=== PATIENT | female | born 1950 | race African-American/Black ===

== ENCOUNTER 2017-07-11 09:53 | Day surgery (SDC) | payer MEDICARE, OTHER ==
[~2017-07-11 09:53] MED LIST: KETOROLAC TROMETHAMINE 0.45% 4 DROP/0.4 ML DROPERETTE OS PRN
[2017-07-11] MEDS: TETRACAINE HCL 0.5% OPH SOLN 0.6 ML DROPERETTE OS PRN ×3 (10:12→10:37)
[2017-07-11] MEDS: CYCLOPENTOLATE 0.2%/PHENYLEPHRINE 1% OPH SOLN 2 ML OS PRN ×3 (10:12→10:32)
[2017-07-11] MEDS: TROPICAMIDE 1% OPH SOLN 3 ML OS PRN ×3 (10:13→10:32)
[2017-07-11] MEDS: BESIFLOXACIN HCL 0.6% OPH SUSP 5 ML BOTTLE OS PRN ×4 (10:13→10:53)
[2017-07-11] MEDS ORDERED: MIDAZOLAM 2 MG/2 ML INJ ONE ×2 (10:19)
[2017-07-11] MEDS ORDERED: FENTANYL CITRATE INJ/PF 100 MCG/2 ML AMPUL ONE (10:20)
[2017-07-11] MEDS: EPINEPHRINE INJ/PF 1 MG/1 ML AMPULE ONE ×2 (10:42)
[2017-07-11] MEDS: LIDOCAINE 1% INJ-PF (10 MG/ML) 30 ML SDV ONE ×2 (10:43)
[2017-07-11] MEDS: CHONDR SU A NA/HYALUR INTRAOC KIT (SURGICARE) ONE ×2 (10:45)
[2017-07-11] MEDS: TOBRAMYCIN SULFATE/DEXAMETH OPH OINTMENT 3.5 GM ONE ×2 (10:53)
== END 2017-07-11 11:34 | disposition home or self-care (01) ==
LOC: SC 09:53
PROVIDERS: ATTEND Ophthalmology
PROC: 08RK3JZ Replacement of Left Lens with Synthetic Substitute, Percutaneous Approach (ICD-10-PCS; principal; 2017-07-11 10:30)
DX: H25.12 Age-related nuclear cataract, left eye (principal); Z98.41 Cataract extraction status, right eye; I10 Essential (primary) hypertension; K21.9 Gastro-esophageal reflux disease without esophagitis; M19.90 Unspecified osteoarthritis, unspecified site; Z79.899 Other long term (current) drug therapy; Z79.1 Long term (current) use of non-steroidal anti-inflammatories (NSAID); Z79.82 Long term (current) use of aspirin
CPT/HCPCS: 66984; V2630; J2250; J3490 ×3; A9270; J0171; J3010; 142

== ENCOUNTER 2017-07-15 18:03 | Inpatient (IN) | payer MEDICARE, OTHER ==
--- NOTE | 2017-07-15 18:30 | ER Document Report ---
ED Medical Screen (RME) - General Chief Complaint: Facial Swelling Stated Complaint: FACE SWOLLEN Time Seen by Provider: 07/15/17 18:21 Notes: 66-year-old female patient developed swelling to the lips about midnight last night. It does not itch. She has had recent cataract surgery. She does take Micardis. Swelling is predominantly the upper lip, some to the lower lip and the anterior buccal mucosa. There is no edema noted to the soft palate, posterior pharynx or uvula region. I have greeted and performed a rapid initial assessment of this patient. A comprehensive ED assessment and evaluation of the patient, analysis of test results and completion of the medical decision making process will be conducted by additional ED providers. TRAVEL OUTSIDE OF THE [place] IN LAST 30 DAYS: No - Related Data Allergies/Adverse Reactions: No Known Allergies Allergy (Verified 07/15/17 18:04) Past Medical History - Past Medical History Cardiac Medical History: Reports: Hx Hypertension Denies: Hx Coronary Artery Disease, Hx Heart Attack Pulmonary Medical History: Denies: Hx Asthma, Hx Bronchitis, Hx COPD, Hx Pneumonia Neurological Medical History: Denies: Hx Cerebrovascular Accident, Hx Seizures Renal/ Medical History: Denies: Hx Peritoneal Dialysis GI Medical History: Reports: Hx Hiatal Hernia. Denies: Hx Hepatitis, Hx Ulcer Musculoskeltal Medical History: Reports Hx Arthritis Infectious Medical History: Denies: Hx Hepatitis Past Surgical History: Reports: Hx Hysterectomy. Denies: Hx Mastectomy, Hx Open Heart Surgery Physical Exam - Vital signs Vitals: Temp Pulse Resp BP Pulse Ox 98.4 F 104 H 18 161/116 H 100 07/15/17 18:04 07/15/17 18:04 07/15/17 18:04 07/15/17 18:04 07/15/17 18:04 Course - Vital Signs Vital signs: Temp Pulse Resp BP Pulse Ox 98.4 F 104 H 18 161/116 H 100 07/15/17 18:04 07/15/17 18:04 07/15/17 18:04 07/15/17 18:04 07/15/17 18:04
[2017-07-15] MEDS ORDERED: METHYLPREDNISOLONE INJ 125 MG/2 ML SDV IV ONE (18:35)
[2017-07-15] MEDS ORDERED: FAMOTIDINE INJ/PF 20 MG/2 ML SDV IV ONE ×2 (18:35→19:40)
[2017-07-15] MEDS ORDERED: NORMAL SALINE 1000 ML 1,000 ML IV PRN ×2 (18:35→19:40)
[2017-07-15] MEDS ORDERED: EPINEPHRINE INJ/PF 1 MG/1 ML AMPULE SUBCUT ONE (18:35)
[2017-07-15] MEDS ORDERED: DIPHENHYDRAMINE HCL 50 MG/ML VIAL IV ONE ×2 (18:35→19:40)
--- NOTE | 2017-07-15 18:39 | ER Document Report ---
ED Allergic Reaction - General Chief Complaint: Facial Swelling Stated Complaint: FACE SWOLLEN Time Seen by Provider: 07/15/17 18:21 Mode of Arrival: Ambulatory Information source: Patient TRAVEL OUTSIDE OF THE [place] IN LAST 30 DAYS: No - HPI Patient complains to provider of: Lip and facial swelling Onset: Yesterday Onset/Duration: Gradual Quality of pain: No pain Identified cause: Possibly Swelling: Face, Lip(s) Notes: Patient is a 66-year-old female presenting to the emergency room complaining of lip and facial swelling that started yesterday evening, she reports it has progressively worsened despite taking Benadryl this afternoon, patient had recent cataract surgery and put TobraDex ointment in her right eye yesterday evening, symptoms started shortly after that, this is the first time she used TobraDex drops, she denies any history of similar symptoms previously, no difficulty breathing or swallowing - Related Data Allergies/Adverse Reactions: No Known Allergies Allergy (Verified 07/15/17 18:04) Past Medical History - General Information source: Patient - Social History Smoking Status: Unknown if Ever Smoked Family History: Reviewed & Not Pertinent Patient has suicidal ideation: No Patient has homicidal ideation: No - Past Medical History Cardiac Medical History: Reports: Hx Hypertension Denies: Hx Coronary Artery Disease, Hx Heart Attack Pulmonary Medical History: Denies: Hx Asthma, Hx Bronchitis, Hx COPD, Hx Pneumonia Neurological Medical History: Denies: Hx Cerebrovascular Accident, Hx Seizures Renal/ Medical History: Denies: Hx Peritoneal Dialysis GI Medical History: Reports: Hx Hiatal Hernia. Denies: Hx Hepatitis, Hx Ulcer Musculoskeltal Medical History: Reports Hx Arthritis Infectious Medical History: Denies: Hx Hepatitis Past Surgical History: Reports: Hx Hysterectomy. Denies: Hx Mastectomy, Hx Open Heart Surgery Review of Systems - Review of Systems Constitutional: No symptoms reported EENT: See HPI Cardiovascular: No symptoms reported Respiratory: No symptoms reported Gastrointestinal: No symptoms reported Genitourinary: No symptoms reported Female Genitourinary: No symptoms reported Musculoskeletal: No symptoms reported Skin: See HPI Hematologic/Lymphatic: No symptoms reported Neurological/Psychological: No symptoms reported -: Yes All other systems reviewed and negative Physical Exam - Vital signs Vitals: Temp Pulse Resp BP Pulse Ox 98.4 F 104 H 18 161/116 H 100 07/15/17 18:04 07/15/17 18:04 07/15/17 18:04 07/15/17 18:04 07/15/17 18:04 Interpretation: Normal - General General appearance: Appears well, Alert - HEENT Head: Normocephalic, Atraumatic Eyes: Normal Conjunctiva: Injected - Right side Extraocular movements intact: Yes Eyelashes: Normal Pupils: PERRL Mouth/Lips: Angioedema - Significant angioedema in the upper and lower lobes extending over the bilateral maxilla Pharynx: Other - No swelling in the posterior pharynx, the soft palate or the uvula, airways patent - Respiratory Respiratory status: No respiratory distress Chest status: Nontender Breath sounds: Normal Chest palpation: Normal - Cardiovascular Rhythm: Regular, Tachycardia Heart sounds: Normal auscultation Murmur: No - Abdominal Inspection: Normal Distension: No distension Bowel sounds: Normal Tenderness: Nontender Organomegaly: No organomegaly - Back Back: Normal, Nontender - Extremities General upper extremity: Normal inspection, Nontender, Normal color, Normal ROM , Normal temperature General lower extremity: Normal inspection, Nontender, Normal color, Normal ROM , Normal temperature, Normal weight bearing. No: Josh's sign - Neurological Neuro grossly intact: Yes Cognition: Normal Orientation: AAOx4 [place] Coma Scale Eye Opening: Spontaneous [place] Coma Scale Verbal: Oriented Rachel Coma Scale Motor: Obeys Commands [place] Coma Scale Total: 15 Speech: Normal Motor strength normal: LUE, RUE, LLE, RLE Sensory: Normal - Psychological Associated symptoms: Normal affect, Normal mood - Skin Skin Temperature: Warm Skin Moisture: Dry Skin Color: Normal Course - Re-evaluation Re-evalutation: 07/15/17 19:59 Have an episode of chest tightness and tachycardia up to 170 after receiving subcutaneous epinephrine, the symptoms subsided shortly thereafter, her angioedema does not seem to have changed at all since receiving a round of medications, a second round has been ordered and will be administered 07/15/17 20:59 Patient resting comfortably, no acute distress, angioedema has not been improved at all despite 2 rounds of treatment with IV fluids, Pepcid, Benadryl, as well as 1 dose of subcutaneous epinephrine and Solu-Medrol, she continues to handle secretions well, there is no posterior pharynx airway edema or swelling, patient was discussed with the hospitalist who agrees to admit for observation - Vital Signs Vital signs: Temp Pulse Resp BP Pulse Ox 98.4 F 104 H 18 161/116 H 100 07/15/17 18:04 07/15/17 18:04 07/15/17 18:04 07/15/17 18:04 07/15/17 18:04 Discharge - Discharge Clinical Impression: Angioedema Qualifiers: Encounter type: initial encounter Qualified Code(s): T78.3XXA - Angioneurotic edema, initial encounter Condition: Stable Disposition: ADMITTED OBSERVATION Admitting Provider: Hospitalist Unit Admitted: Telemetry
[2017-07-15] MEDS ORDERED: ONDANSETRON HCL INJ/PF 4 MG/2 ML SDV IV ONE (20:29)
[2017-07-15] MEDS ORDERED: KETOROLAC TROMETHAMINE INJ/PF 30 MG/1 ML SDV IV ONE (20:29)
[2017-07-15] MEDS ORDERED: ONDANSETRON HCL INJ/PF 4 MG/2 ML SDV IV PRN (20:59)
[2017-07-15] MEDS ORDERED: IPRATROPIUM/ALBUTEROL 0.5-2.5 MG/3 ML AMPUL NEB PRN (20:59)
[2017-07-15] MEDS ORDERED: DIPHENHYDRAMINE HCL 50 MG/ML VIAL IV PRN (21:01)
[2017-07-15] MEDS: HEPARIN SOD (PORCINE) 5,000 UNIT/ML 1 ML SYRINGE SUBCUT SCH (23:39)
[2017-07-15] MEDS: FAMOTIDINE INJ/PF 20 MG/2 ML SDV IV SCH (23:42)
[2017-07-15] MEDS: KETOROLAC TROMETHAMINE INJ/PF 30 MG/1 ML SDV IV PRN (23:42)
[2017-07-15] MEDS: METHYLPREDNISOLONE INJ 125 MG/2 ML SDV IV SCH (23:42)
[2017-07-16] MEDS: HEPARIN SOD (PORCINE) 5,000 UNIT/ML 1 ML SYRINGE SUBCUT SCH ×3 (05:11→21:52)
[2017-07-16] MEDS: METHYLPREDNISOLONE INJ 125 MG/2 ML SDV IV SCH ×3 (05:22→17:40)
[2017-07-16 06:55] LABS: ABSOLUTE LYMPHOCYTES (AUTO) 0.6 10^3/uL (0.5-4.7); ABSOLUTE NEUT (AUTO) 2.3 10^3/uL (1.7-8.2); BASOPHILS % (AUTO) 0.2 % (0-2); HEMATOCRIT 36.8 % (36.0-47.0); HEMOGLOBIN 12.6 g/dL (12.0-15.5); LYMPHOCYTES % (AUTO) 20.7 % (13-45); MEAN CORPUSCULAR HEMOGLOBIN 33.2 pg (27.0-33.4); MEAN CORPUSCULAR HGB CONC 34.2 g/dL (32.0-36.0); MEAN CORPUSCULAR VOLUME 97 fl (80-97); MONOCYTES % (AUTO) 1.1 % (3-13); RED BLOOD COUNT 3.79 10^6/uL (3.72-5.28); RED CELL DISTRIBUTION WIDTH 12.4 % (11.5-14.0); WHITE BLOOD COUNT 2.9 10^3/uL (4.0-10.5)
[2017-07-16] MEDS: FAMOTIDINE INJ/PF 20 MG/2 ML SDV IV SCH ×2 (09:40→21:52)
[2017-07-16] MEDS: HYDRALAZINE HCL INJ/PF 20 MG/1 ML SDV IV PRN (11:21)
[2017-07-16] MEDS: KETOROLAC TROMETHAMINE INJ/PF 30 MG/1 ML SDV IV PRN (13:15)
[2017-07-16] MEDS ORDERED: NORMAL SALINE 1000 ML 1,000 ML IV PRN (14:05)
--- NOTE | 2017-07-16 15:45 | PDOC PROGRESS REPORT ---
Subjective Progress Note for:: 07/16/17 Subjective:: Still complains of swelling of the upper lip. Physical Exam Vital Signs: Temp Pulse Resp BP Pulse Ox 98.3 F 124 H 20 141/69 H 98 07/16/17 12:54 07/16/17 14:00 07/16/17 12:54 07/16/17 12:54 07/16/17 12:54 Intake & Output 07/15/17 07/16/17 07/17/17 06:59 06:59 06:59 Intake Total 50 Balance 50 Weight 77.7 kg General appearance: PRESENT: no acute distress Head exam: PRESENT: other - Swelling of the bilateral cheeks and periorbital areas. Eye exam: PRESENT: conjunctiva pink, EOMI, PERRLA. ABSENT: scleral icterus Ear exam: PRESENT: normal external ear exam Mouth exam: PRESENT: other - Upper lip is swollen. Neck exam: ABSENT: carotid bruit, JVD, lymphadenopathy, thyromegaly Respiratory exam: PRESENT: clear to auscultation marcello. ABSENT: rales, rhonchi, wheezes Cardiovascular exam: PRESENT: RRR. ABSENT: diastolic murmur, rubs, systolic murmur GI/Abdominal exam: PRESENT: normal bowel sounds, soft. ABSENT: distended, guarding, mass, organolmegaly, rebound, tenderness Extremities exam: ABSENT: calf tenderness, clubbing, pedal edema Neurological exam: PRESENT: alert, awake, oriented to person, oriented to place , oriented to time, oriented to situation, CN II-XII grossly intact. ABSENT: motor sensory deficit Psychiatric exam: PRESENT: appropriate affect Skin exam: PRESENT: dry, intact, warm. ABSENT: cyanosis, rash Results Laboratory Results: 07/16/17 06:32 07/16/17 06:32 WBC 2.9 L RBC 3.79 Hgb 12.6 Hct 36.8 MCV 97 MCH 33.2 MCHC 34.2 RDW 12.4 Plt Count 230 Seg Neutrophils % 78.0 Lymphocytes % 20.7 Monocytes % 1.1 L Eosinophils % 0.0 Basophils % 0.2 Absolute Neutrophils 2.3 Absolute Lymphocytes 0.6 Absolute Monocytes 0.0 L Absolute Eosinophils 0.0 Absolute Basophils 0.0 Assessment & Plan - Diagnosis (1) Angioedema Qualifiers: Encounter type: initial encounter Qualified Code(s): T78.3XXA - Angioneurotic edema, initial encounter Is this a current diagnosis for this admission?: Yes Plan: There is concern that this is secondary to TobraDex. The patient was given this after cataract surgery recently. She also is on an ARB. Will hold all of her medications for now until the symptoms resolved and then add back her other eyedrops. I have left a message with Dr. Hutchinson's office in regards to the reaction to medications and I am awaiting a call back. Continue with the steroids for now. (2) Hypertension Is this a current diagnosis for this admission?: Yes Plan: Patient has been on an ARB. Will hold that for now given the angioedema. (3) Cataract Is this a current diagnosis for this admission?: Yes Plan: The concern is that the angioedema is secondary to the Tobradex eyedrops. She is on an ARB also. Patient is getting IV steroids and will continue with those. Will hold all of her medications for now and restart tomorrow. The patient is concerned because she has eyedrops she supposed to use since she is postoperative from a cataract surgery. - Time Time Spent with patient: 15-24 minutes - Inpatient Certification Medical Necessity: Need Close Monitoring Due to Risk of Patient Decompensation
--- NOTE | 2017-07-16 18:21 | PDOC H&P ---
History of Present Illness Admission Date/PCP: 07/15/17 20:59 Patient complains of: Lip and facial swelling History of Present Illness: KALIN MARK is a 66 year old female with a past medical history of hypertension, depression, GERD and recent cataract surgery. Patient applied ophthalmic TobraDex as indicated by ophthalmology and shortly after developed facial edema and marketed upper lip edema. No cough, drooling, stridor or uvular edema. In the emergency room she receives subcu epinephrine, Pepcid, Solu-Medrol is referred to the hospitalist for admission. Patient denies previous episode, shortness of breath or chest pain. She denies other changes in medications. Past Medical History Cardiac Medical History: Reports: Hypertension Denies: Coronary Artery Disease, Myocardial Infarction Pulmonary Medical History: Denies: Asthma, Bronchitis, Chronic Obstructive Pulmonary Disease (COPD), Pneumonia Neurological Medical History: Denies: Seizures GI Medical History: Reports: Hiatal Hernia Denies: Hepatitis Musculoskeltal Medical History: Reports: Arthritis Hematology: Reports: Anemia Denies: Sickle Cell Disease Past Surgical History Past Surgical History: Reports: Hysterectomy Denies: Amputation, Mastectomy Social History Information Source: Patient Lives with: Family Smoking Status: Unknown if Ever Smoked Frequency of Alcohol Use: Rare - Advance Directive Resuscitation Status: Full Code Family History Family History: Hypertension Parental Family History Reviewed: Yes Children Family History Reviewed: Yes Sibling(s) Family History Reviewed.: Yes Medication/Allergy Home Medications: Amitriptyline HCl [Elavil 50 Mg Tablet] 50 mg PO DAILY 06/11/13 Ranitidine HCl [Zantac] 150 mg PO DAILY 06/26/17 Telmisartan [Micardis] 40 mg PO DAILY 06/26/17 Aspirin [Aspirin EC] 81 mg PO DAILY 07/15/17 Cetirizine HCl [Zyrtec 10 mg Tablet] 10 mg PO DAILY 07/15/17 Ketorolac Tromethamine 0.45% [Acuvail 0.45% Oph Soln 0.4 ml/Dropperette] 1 drop OD BID 07/15/17 Moxifloxacin HCl [Vigamox] 1 dose OS ASDIR 07/15/17 Prednisolone Acetate [Pred Forte] 1 dose OS ASDIR 07/15/17 Tobramycin/Dexamethasone [Tobradex Eye Ointment] 1 dose OS ASDIR 11/12/17 Allergies/Adverse Reactions: No Known Allergies Allergy (Verified 07/15/17 18:04) Review of Systems Constitutional: ABSENT: chills, fever(s), headache(s), weight gain, weight loss Eyes: ABSENT: visual disturbances Ears: ABSENT: hearing changes Cardiovascular: ABSENT: chest pain, dyspnea on exertion, edema, orthropnea, palpitations Respiratory: ABSENT: cough, hemoptysis Gastrointestinal: ABSENT: abdominal pain, constipation, diarrhea, hematemesis, hematochezia, nausea, vomiting Genitourinary: ABSENT: dysuria, hematuria Musculoskeletal: ABSENT: joint swelling Integumentary: ABSENT: rash, wounds Neurological: ABSENT: abnormal gait, abnormal speech, confusion, dizziness, focal weakness, syncope Psychiatric: ABSENT: anxiety, depression, homidical ideation, suicidal ideation Endocrine: ABSENT: cold intolerance, heat intolerance, polydipsia, polyuria Hematologic/Lymphatic: ABSENT: easy bleeding, easy bruising Physical Exam Vital Signs: Temp Pulse Resp BP Pulse Ox 97.5 F 79 18 155/96 H 100 07/16/17 04:20 07/16/17 04:20 07/16/17 04:20 07/16/17 04:20 07/16/17 04:20 Intake & Output 07/14/17 07/15/17 07/16/17 11:59 11:59 11:59 Weight 77.7 kg General appearance: PRESENT: cooperative, mild distress, well-developed, well- nourished Head exam: PRESENT: atraumatic, normocephalic Eye exam: PRESENT: conjunctiva pink, EOMI, PERRLA. ABSENT: scleral icterus Ear exam: PRESENT: normal external ear exam Mouth exam: PRESENT: moist, tongue midline, other - Marketed edema of the upper lip without drooling, stridor or uvular edema. Neck exam: ABSENT: carotid bruit, JVD, lymphadenopathy, thyromegaly Respiratory exam: PRESENT: clear to auscultation marcello. ABSENT: rales, rhonchi, wheezes Cardiovascular exam: PRESENT: RRR. ABSENT: diastolic murmur, rubs, systolic murmur Pulses: PRESENT: normal dorsalis pedis pul Vascular exam: PRESENT: normal capillary refill GI/Abdominal exam: PRESENT: normal bowel sounds, soft. ABSENT: distended, guarding, mass, organolmegaly, rebound, tenderness Rectal exam: PRESENT: deferred Extremities exam: PRESENT: full ROM. ABSENT: calf tenderness, clubbing, pedal edema Neurological exam: PRESENT: alert, awake, oriented to person, oriented to place , oriented to time, oriented to situation, CN II-XII grossly intact. ABSENT: motor sensory deficit Psychiatric exam: PRESENT: appropriate affect, normal mood. ABSENT: homicidal ideation, suicidal ideation Skin exam: PRESENT: dry, intact, warm. ABSENT: cyanosis, rash Assessment & Plan - Diagnosis (1) Adverse reaction to aminoglycoside Is this a current diagnosis for this admission?: Yes Plan: Tobramycin added to allergy list (2) Angioedema Qualifiers: Encounter type: initial encounter Qualified Code(s): T78.3XXA - Angioneurotic edema, initial encounter Is this a current diagnosis for this admission?: Yes Plan: Telemetry monitoring, supportive care, Pepcid, Benadryl, Solu-Medrol and as needed epinephrine. Education for avoidance of aminoglycoside.
[2017-07-16] MEDS: OXYCODONE HCL IR 5 MG TABLET PO PRN (18:40)
[2017-07-17] MEDS: METHYLPREDNISOLONE INJ 125 MG/2 ML SDV IV SCH ×4 (00:20→18:30)
[2017-07-17] MEDS: OXYCODONE HCL IR 5 MG TABLET PO PRN ×3 (01:20→16:54)
[2017-07-17] MEDS: HYDRALAZINE HCL INJ/PF 20 MG/1 ML SDV IV PRN (04:56)
[2017-07-17] MEDS: HEPARIN SOD (PORCINE) 5,000 UNIT/ML 1 ML SYRINGE SUBCUT SCH ×3 (05:35→22:02)
--- NOTE | 2017-07-17 09:07 | Physician Advisory Note ---
Physician Advisor ProgressNote .: Pursuant to the plan for [facility], I have reviewed the medical record for this patient. Physician Advisor Statement: This Medicare pt came in with angioedema. After 1 MN of hospital care, she still had facial and lip swelling, and attending documented concern that it was caused by the Tobradex eyedrops she is supposed to continue due to cataract surgery. Attempting to contact pcas about potential eyedrops change that would not cause angioedema but would still be adequate for the post-op ophtho issues. Documented need to have symptoms further improved before d/c. Appropriate to change to Inpatient status. CK
[2017-07-17] MEDS: FAMOTIDINE INJ/PF 20 MG/2 ML SDV IV SCH ×2 (09:14→22:02)
[2017-07-17] MEDS ORDERED: METOPROLOL SUCCINATE 50 MG TAB.SR.24H PO ONE (13:27)
[2017-07-17] MEDS ORDERED: AMITRIPTYLINE HCL 50 MG TABLET PO PRN (13:29)
--- NOTE | 2017-07-17 14:32 | PDOC PROGRESS REPORT ---
Subjective Progress Note for:: 07/17/17 Subjective:: This is a follow-up visit for angioedema. I reviewed the patient's medicine list. Most likely culprits are going to include telmisartan versus naproxen. There have been some concerns that possibly her TobraDex drop causing angioedema. However, I do not see this listed in any reference is a known side effect. Most likely the patient's symptoms are due to her use NADEEM/ARB or NSAIDs. I have discussed these thoughts with the patient and she really would like to resume her eyedrops. She is nervous about not having them. She feels that her facial swelling is much better today as compared to yesterday. Currently denies any chest pain or shortness of breath. She denies any palpitations. Physical Exam Vital Signs: Temp Pulse Resp BP Pulse Ox 98.9 F 110 H 16 151/98 H 99 07/17/17 12:00 07/17/17 12:00 07/17/17 12:00 07/17/17 12:00 07/17/17 12:00 Intake & Output 07/16/17 07/17/17 07/18/17 06:59 06:59 06:59 Intake Total 50 3870 Balance 50 3870 Weight 77.7 kg 81 kg GENERAL: This is a well-developed well-nourished appearing -[place] female resting sitting up in bed currently in no acute distress. HEENT: Normocephalic. Atraumatic. I do not detect any obvious swelling. Her left cheek may be slightly puffier. HEART: Tachycardic at a rate of 110. No obvious murmurs rubs or gallops. LUNGS: [Clear to auscultation bilaterally with equal rise and fall of the chest. ] ABDOMEN: [Soft, nontender, nondistended with normoactive bowel sounds] EXTREMETIES: [No clubbing, cyanosis or edema. 2+ peripheral pulses bilaterally. ] NEURO: [Awake, alert and oriented 3. Asymmetric smile.] Results Laboratory Results: 07/16/17 06:32 Assessment & Plan - Diagnosis (1) Angioedema Qualifiers: Encounter type: initial encounter Qualified Code(s): T78.3XXA - Angioneurotic edema, initial encounter Is this a current diagnosis for this admission?: Yes Plan: I recognize that the patient has linked the timing of her symptoms with the use of her eyedrops. Even with this she is not convinced that this is the issue. She strongly feels that it could have been something that she ate from [employer]. She states that she had a cheeseburger with onions and fries and thinks that it could be related to this. From what we know of angioedema it is most likely her telmisartan for her use of NSAIDs. Therefore, we will restart her TobraDex drops and continue to monitor. I am not going to resume her telmisartan or naproxen. Please see below for management of tachycardia and hypertension. (2) Cataract Is this a current diagnosis for this admission?: Yes Plan: Resume TobraDex drops OS 1 drop every 4 hours (3) Hypertension Is this a current diagnosis for this admission?: Yes Plan: Telmisartan will be discontinued. We will start metoprolol 50 mg XL daily. Continue to monitor. - Time Time Spent with patient: 15-24 minutes Anticipated discharge: Home Within: within 24 hours
[2017-07-17] MEDS: TOBRAMYCIN SULFATE/DEXAMETH OPH SUSP 2.5 ML OS SCH ×3 (15:32→22:02)
[2017-07-17] MEDS: KETOROLAC TROMETHAMINE INJ/PF 30 MG/1 ML SDV IV PRN (20:28)
[2017-07-18] MEDS: HYDRALAZINE HCL INJ/PF 20 MG/1 ML SDV IV PRN (00:01)
[2017-07-18] MEDS: METHYLPREDNISOLONE INJ 125 MG/2 ML SDV IV SCH ×3 (00:01→13:02)
[2017-07-18] MEDS: TOBRAMYCIN SULFATE/DEXAMETH OPH SUSP 2.5 ML OS SCH ×4 (01:03→13:03)
[2017-07-18] MEDS ORDERED: AMLODIPINE BESYLATE 10 MG TABLET PO ONE (03:12)
[2017-07-18] MEDS: HEPARIN SOD (PORCINE) 5,000 UNIT/ML 1 ML SYRINGE SUBCUT SCH (05:49)
[2017-07-18] MEDS: FAMOTIDINE INJ/PF 20 MG/2 ML SDV IV SCH (09:11)
[2017-07-18] MEDS: OXYCODONE HCL IR 5 MG TABLET PO PRN (09:20)
[2017-07-18] MEDS ORDERED: CETIRIZINE 10 MG TABLET PO SCH (10:00)
[2017-07-18] MEDS ORDERED: (PENDING PHARMACY ID) (Ranitidine Hcl [Zantac 150 Mg Tablet] 150 MG) PO SCH (10:00)
[2017-07-18] MEDS ORDERED: FAMOTIDINE INJ/PF 20 MG/2 ML SDV IV SCH (10:00)
--- NOTE | 2017-07-18 13:09 | PDOC DISCHARGE SUMMARY ---
General - Admit/Disc Date/PCP Admission Date/Primary Care Provider: 07/17/17 14:32 Discharge Date: 07/18/17 - Discharge Diagnosis (1) Angioedema Is this a current diagnosis for this admission?: Yes Summary: Resolved. The patient was provided a prescription for 3 more days of oral prednisone. Aloe up with PCP on Sunday. We can remove the patient's eyedrops/ aminoglycosides from her allergy list. (2) Cataract Is this a current diagnosis for this admission?: Yes Summary: Resume TobraDex drops. Follow-up with ophthalmology as instructed. (3) Hypertension Is this a current diagnosis for this admission?: Yes Summary: Metoprolol was started. 50 mg extended release daily. Follow-up with PCP on Sunday for blood pressure check and assessment. - Additional Information Resuscitation Status: Full Code Home Medications: Amitriptyline HCl [Elavil 50 mg Tablet] 50 mg PO HSP PRN 06/11/13 Aspirin [Aspirin EC] 81 mg PO DAILY 07/15/17 Cetirizine HCl [Zyrtec 10 mg Tablet] 10 mg PO DAILY 07/15/17 Multivitamin [Tab-A-Juvencio] 1 tab PO DAILY 07/16/17 Metoprolol Succinate 50 mg PO DAILY #30 tab.er.24h 07/18/17 Prednisone 40 mg PO DAILY #6 tablet 07/18/17 Tobramycin Sulfate/Dexameth [Tobradex Oph Drops 2.5 ml] 1 drop OS Q4H bottle History of Present Illness History of Present Illness: KALIN MARK is a 66 year old -British female who presented to the hospitalist service with complaints of swelling and angioedema. Please see the HPI as dictated by the admitting physician below. Admission Date/PCP: 07/15/17 20:59 Patient complains of: Lip and facial swelling History of Present Illness: KALIN MARK is a 66 year old female with a past medical history of hypertension, depression, GERD and recent cataract surgery. Patient applied ophthalmic TobraDex as indicated by ophthalmology and shortly after developed facial edema and marketed upper lip edema. No cough, drooling, stridor or uvular edema. In the emergency room she receives subcu epinephrine, Pepcid, Solu-Medrol is referred to the hospitalist for admission. Patient denies previous episode, shortness of breath or chest pain. She denies other changes in medications. Hospital Course Hospital Course: Patient was admitted to the hospital and given high-dose steroids. All medications were held initially. The day prior to discharge medicines were added back. The patient did have her eyedrops added back. She did not have any adverse events with addition of her eyedrops. However, her telmisartan was not restarted. I do suspect that this was the underlying etiology for her angioedema. I also did not restart her naproxen since this carries a risk of angioedema as well. Patient was started on metoprolol which seemed to control not only her heart rate but also her blood pressure. She was given a prescription for this. The patient was instructed to follow-up with her primary care physician within a week. She tells me that she has an appointment scheduled for Sunday. I have advised her to check her blood pressures on a daily basis at different times of the day once a day. She is instructed to take these measurements and with her to her appointment. Physical Exam Vital Signs: Temp Pulse Resp BP Pulse Ox 98.3 F 81 18 166/96 H 97 07/18/17 07:24 07/18/17 07:24 07/18/17 07:24 07/18/17 07:24 07/18/17 07:24 Intake & Output 07/17/17 07/18/17 07/19/17 06:59 06:59 06:59 Intake Total 1445 Balance 1445 Weight 80.9 kg GENERAL: This is a well-developed well-nourished appearing -British female resting sitting up on the side of her bed currently in no acute distress. HEENT: Normocephalic. Atraumatic. I do not detect any obvious swelling. HEART: Regular rate and rhythm. No obvious murmurs rubs or gallops. LUNGS: Clear to auscultation bilaterally with equal rise and fall of the chest. ABDOMEN: Soft, nontender, nondistended with normoactive bowel sounds EXTREMETIES: No clubbing, cyanosis or edema. 2+ peripheral pulses bilaterally. NEURO: Awake, alert and oriented 3. Asymmetric smile. Qualifiers PATEINT BEING DISCHARGED WITH ANY OF THE FOLLOWING DIAGNOSIS?: No Plan Time Spent: Less than 30 Minutes
[2017-07-18 14:04] VITALS: BP 170/90
[2017-07-18] MEDS ORDERED: AMLODIPINE BESYLATE 10 MG TABLET PO SCH (22:00)
== END 2017-07-18 14:15 | disposition home or self-care (01) | DRG 916 ==
LOC: ER 18:03 → EH 20:59 → UNDOADMOB 21:05 → 5 22:38 → OBSVTOIN 07-17 14:32
PROVIDERS: ADMIT Internal Medicine; ATTEND Internal Medicine
DX: T78.3XXA Angioneurotic edema, initial encounter (principal); I10 Essential (primary) hypertension; H26.9 Unspecified cataract; K21.9 Gastro-esophageal reflux disease without esophagitis; K44.9 Diaphragmatic hernia without obstruction or gangrene; M19.90 Unspecified osteoarthritis, unspecified site; Z79.899 Other long term (current) drug therapy; Z79.82 Long term (current) use of aspirin; Z90.710 Acquired absence of both cervix and uterus
CPT/HCPCS: 36415; 85025; 96361; 96372; 96374; 96375; 96376; 99284; G0378; J0171; J0360; J1200; J1644; J1885; J2405; J2930; J3490; J7030; S0028

== ENCOUNTER 2017-11-01 10:29 | Emergency (ER) | payer MEDICARE, OTHER ==
[2017-11-01] MEDS ORDERED: DIPHENHYDRAMINE HCL 50 MG CAPSULE PO ONE (10:48)
[2017-11-01] MEDS ORDERED: FAMOTIDINE 20 MG TABLET PO ONE (10:48)
[2017-11-01] MEDS ORDERED: PREDNISONE 20 MG TABLET PO ONE (10:48)
--- NOTE | 2017-11-01 10:53 | ER Document Report ---
ED General - General Chief Complaint: Facial Swelling Stated Complaint: FACIAL SWELLING Time Seen by Provider: 11/01/17 10:48 Mode of Arrival: Ambulatory Information source: Patient Notes: 67-year-old female who is on lisinopril presents with complaints of the swelling bilateral. Patient notes that this has happened 3 times prior. She denies any tongue swelling denies any difficulty breathing shortness of breath notes her throat is mildly itchy. Patient notes that symptoms started 2 days ago. Patient took lisinopril yesterday TRAVEL OUTSIDE OF THE [place] IN LAST 30 DAYS: No - HPI Onset: Yesterday Onset/Duration: Sudden Quality of pain: No pain Severity: Mild Pain Level: Denies Associated symptoms: Other Exacerbated by: Denies Relieved by: Denies Similar symptoms previously: Yes Recently seen / treated by doctor: Yes - Related Data Allergies/Adverse Reactions: Aminoglycosides Allergy (Severe, Verified 11/01/17 10:32) Angioneurotic Edema lisinopril Allergy (Severe, Verified 11/01/17 10:48) Angioneurotic Edema Past Medical History - Social History Smoking Status: Never Smoker Cigarette use (# per day): No Chew tobacco use (# tins/day): No Smoking Education Provided: No Family History: Hypertension - Past Medical History Cardiac Medical History: Reports: Hx Hypertension Denies: Hx Coronary Artery Disease, Hx Heart Attack Pulmonary Medical History: Denies: Hx Asthma, Hx Bronchitis, Hx COPD, Hx Pneumonia Neurological Medical History: Denies: Hx Cerebrovascular Accident, Hx Seizures Renal/ Medical History: Denies: Hx Peritoneal Dialysis GI Medical History: Reports: Hx Hiatal Hernia. Denies: Hx Hepatitis, Hx Ulcer Musculoskeltal Medical History: Reports Hx Arthritis Infectious Medical History: Denies: Hx Hepatitis Past Surgical History: Reports: Hx Hysterectomy. Denies: Hx Mastectomy, Hx Open Heart Surgery Review of Systems - Review of Systems Notes: REVIEW OF SYSTEMS: CONSTITUTIONAL : Denies fever, chills, or sweats. Denies recent illness. EENT: Admits to lip swelling CARDIOVASCULAR: Denies chest pain. Denies palpitations or racing or irregular heart beat. Denies ankle edema. RESPIRATORY: Denies cough, cold, or chest congestion. Denies shortness of breath, difficulty breathing, or wheezing. GASTROINTESTINAL: Denies abdominal pain or distention. Denies nausea, vomiting , or diarrhea. Denies blood in vomitus, stools, or per rectum. Denies black, tarry stools. Denies constipation. GENITOURINARY: Denies difficulty urinating, painful urination, burning, frequency, blood in urine, or discharge. FEMALE GENITOURINARY: Denies vaginal bleeding, heavy or abnormal periods, irregular periods. Denies vaginal discharge or odor. MUSCULOSKELETAL: Denies back or neck pain or stiffness. Denies joint pain or swelling. SKIN: Denies rash, lesions or sores. HEMATOLOGIC : Denies easy bruising or bleeding. LYMPHATIC: Denies swollen, enlarged glands. NEUROLOGICAL: Denies confusion or altered mental status. Denies passing out or loss of consciousness. Denies dizziness or lightheadedness. Denies headache. Denies weakness or paralysis or loss of use of either side. Denies problems with gait or speech. Denies sensory loss, numbness, or tingling. Denies seizures. PSYCHIATRIC: Denies anxiety or stress. Denies depression, suicidal ideation, or homicidal ideation. ALL OTHER SYSTEMS REVIEWED AND NEGATIVE. PHYSICAL EXAMINATION: GENERAL: Well-appearing, well-nourished and in no acute distress. HEAD: Atraumatic, normocephalic. EYES: Pupils equal round and reactive to light, extraocular movements intact, conjunctiva are normal. ENT: Upper and lower lip edema, no airway involvement no tongue involvement NECK: Normal range of motion, supple without lymphadenopathy LUNGS: Breath sounds clear to auscultation bilaterally and equal. No wheezes rales or rhonchi. HEART: Regular rate and rhythm without murmurs ABDOMEN: Soft, nontender, nondistended abdomen. No guarding, no rebound. No masses appreciated. Female : deferred Musculoskeletal: Normal range of motion, no pitting or edema. No cyanosis. NEUROLOGICAL: Cranial nerves grossly intact. Normal speech, normal gait. Normal sensory, motor exams PSYCH: Normal mood, normal affect. SKIN: Warm, Dry, normal turgor, no rashes or lesions noted. Dictation was performed using [employer] voice recognition software Physical Exam - Vital signs Vitals: Temp Pulse Resp BP Pulse Ox 98.2 F 113 H 20 130/92 H 99 11/01/17 10:40 11/01/17 10:40 11/01/17 10:40 11/01/17 10:40 11/01/17 10:40 Course - Re-evaluation Re-evalutation: 11/01/17 10:51 Patient was offered admission for angioedema she defers at this time, I have moderate concernsof resp failure, but it has been ongoing for 2 days and total of 4 times, I pleaded with her ot atleast stay with me for a period of time for my own sake. 11/01/17 12:26 Patient has been watched has been eating drinking with no difficulty, she is insistent that she leaves, I will discharge her at her request however I think this is a very poor idea however patient's alert oriented and understands risks and benefits I will stop her lisinopril start her on Norvasc instead Patient has been instructed to return immediately if there are any other concerns After performing a Medical Screening Examination, I estimate there is LOW risk for AIRWAY COMPROMISE, ANAPHYLAXIS, CELLULITIS, EPIGLOTTIS, or NECROTIZING FASCIITIS, thus I consider the discharge disposition reasonable. Also, there is no evidence or peritonitis, sepsis, or toxicity. I have reevaluated this patient multiple times and no significant life threatening changes are noted. The patient and I have discussed the diagnosis and risks, and we agree with discharging home with close follow-up with the understanding that symptoms and presentations can change. We also discussed returning to the Emergency Department immediately if new or worsening symptoms occur. We have discussed the symptoms which are most concerning (e.g., difficulty breathing or swallowing , fever, changing or worsening pain) that necessitate immediate return. - Vital Signs Vital signs: Temp Pulse Resp BP Pulse Ox 98.2 F 113 H 20 130/92 H 99 11/01/17 10:40 11/01/17 10:40 11/01/17 10:40 11/01/17 10:40 11/01/17 10:40 Discharge - Discharge Clinical Impression: Angioedema Qualifiers: Encounter type: initial encounter Qualified Code(s): T78.3XXA - Angioneurotic edema, initial encounter HTN (hypertension) Qualifiers: Hypertension type: essential hypertension Qualified Code(s): I10 - Essential ( primary) hypertension Condition: Stable Disposition: HOME, SELF-CARE Instructions: Angioedema ([facility]) Additional Instructions: You must follow-up with your primary care physician regarding all the swelling, return immediately if there is any involvement of the tongue or throat we have any difficulty swallowing or breathing Prescriptions: Amlodipine Besylate [Norvasc 5 mg Tablet] 5 mg PO DAILY #30 tablet
[2017-11-01 12:39] VITALS: BP 150/95
== END 2017-11-01 12:39 | disposition home or self-care (01) ==
LOC: ER 10:29
DX: T78.3XXA Angioneurotic edema, initial encounter (principal); I10 Essential (primary) hypertension; Z79.899 Other long term (current) drug therapy; Z88.8 Allergy status to other drugs, medicaments and biological substances
CPT/HCPCS: 99283; A9270 ×3; J7512

== ENCOUNTER 2017-11-14 09:27 | Inpatient (IN) | payer MEDICARE, OTHER ==
[2017-11-14] MEDS ORDERED: ETOMIDATE INJ/PF 20 MG/10 ML SDV IV ONE ×2 (09:43→10:32)
[2017-11-14] MEDS ORDERED: KETAMINE HCL INJ 500 MG/10 ML VIAL ONE (09:48)
[2017-11-14] MEDS ORDERED: PROPOFOL 100 ML IV ONE (09:50)
[2017-11-14] MEDS: PROPOFOL 100 ML IV PRN ×6 (09:54→23:42)
[2017-11-14] MEDS ORDERED: MIDAZOLAM 2 MG/2 ML INJ ONE ×2 (10:11→10:49)
[2017-11-14] MEDS ORDERED: NORMAL SALINE 250 ML IV PRN ×2 (10:23)
[2017-11-14] MEDS ORDERED: DIPHENHYDRAMINE HCL 50 MG/ML VIAL IV ONE (10:26)
[2017-11-14] MEDS ORDERED: METHYLPREDNISOLONE INJ 125 MG/2 ML SDV IV ONE (10:26)
[2017-11-14] MEDS ORDERED: FAMOTIDINE INJ/PF 20 MG/2 ML SDV IV ONE (10:26)
--- NOTE | 2017-11-14 10:28 | ER Document Report ---
ED General - General Chief Complaint: Swelling of Tongue Stated Complaint: TONGUE SWOLLEN Time Seen by Provider: 11/14/17 09:58 Mode of Arrival: Ambulatory Information source: Patient Notes: 67-year-old female who was seen by myself 2 weeks ago and refused admission for angioedema which was noted to have occurred while she was on lisinopril presents with complaints of tongue swelling today and difficulty breathing. Patient notes that she stopped taking the lisinopril and start amlodipine, had swelling of the tongue at 330 am TRAVEL OUTSIDE OF THE [place] IN LAST 30 DAYS: No - HPI Onset: This morning Onset/Duration: Sudden Quality of pain: Achy Severity: Severe Pain Level: 1 Associated symptoms: Other Exacerbated by: Denies Relieved by: Denies Similar symptoms previously: Yes Recently seen / treated by doctor: Yes - Related Data Allergies/Adverse Reactions: Aminoglycosides Allergy (Severe, Verified 11/14/17 10:44) Angioneurotic Edema lisinopril Allergy (Severe, Verified 11/14/17 10:44) Angioneurotic Edema amlodipine Allergy (Verified 11/14/17 10:44) Past Medical History - Social History Smoking Status: Never Smoker Cigarette use (# per day): No Chew tobacco use (# tins/day): No Smoking Education Provided: No Family History: Hypertension - Past Medical History Cardiac Medical History: Reports: Hx Hypertension Denies: Hx Coronary Artery Disease, Hx Heart Attack Pulmonary Medical History: Denies: Hx Asthma, Hx Bronchitis, Hx COPD, Hx Pneumonia Neurological Medical History: Denies: Hx Cerebrovascular Accident, Hx Seizures Renal/ Medical History: Denies: Hx Peritoneal Dialysis GI Medical History: Reports: Hx Hiatal Hernia. Denies: Hx Hepatitis, Hx Ulcer Musculoskeltal Medical History: Reports Hx Arthritis Infectious Medical History: Denies: Hx Hepatitis Past Surgical History: Reports: Hx Hysterectomy. Denies: Hx Mastectomy, Hx Open Heart Surgery Review of Systems - Review of Systems Notes: REVIEW OF SYSTEMS: CONSTITUTIONAL : Denies fever, chills, or sweats. Denies recent illness. EENT: Admits to tongue swelling CARDIOVASCULAR: Denies chest pain. Denies palpitations or racing or irregular heart beat. Denies ankle edema. RESPIRATORY: Denies cough, cold, or chest congestion. Denies shortness of breath, difficulty breathing, or wheezing. GASTROINTESTINAL: Denies abdominal pain or distention. Denies nausea, vomiting , or diarrhea. Denies blood in vomitus, stools, or per rectum. Denies black, tarry stools. Denies constipation. GENITOURINARY: Denies difficulty urinating, painful urination, burning, frequency, blood in urine, or discharge. FEMALE GENITOURINARY: Denies vaginal bleeding, heavy or abnormal periods, irregular periods. Denies vaginal discharge or odor. MUSCULOSKELETAL: Denies back or neck pain or stiffness. Denies joint pain or swelling. SKIN: Denies rash, lesions or sores. HEMATOLOGIC : Denies easy bruising or bleeding. LYMPHATIC: Denies swollen, enlarged glands. NEUROLOGICAL: Denies confusion or altered mental status. Denies passing out or loss of consciousness. Denies dizziness or lightheadedness. Denies headache. Denies weakness or paralysis or loss of use of either side. Denies problems with gait or speech. Denies sensory loss, numbness, or tingling. Denies seizures. PSYCHIATRIC: Denies anxiety or stress. Denies depression, suicidal ideation, or homicidal ideation. ALL OTHER SYSTEMS REVIEWED AND NEGATIVE. PHYSICAL EXAMINATION: GENERAL: Well-appearing, well-nourished and in moderate distress. HEAD: Atraumatic, normocephalic. EYES: Pupils equal round and reactive to light, extraocular movements intact, conjunctiva are normal. ENT: Edema noted of the tongue, change in voice NECK: Normal range of motion, supple without lymphadenopathy LUNGS: Breath sounds clear to auscultation bilaterally and equal. No wheezes rales or rhonchi. HEART: Regular rate and rhythm without murmurs ABDOMEN: Soft, nontender, nondistended abdomen. No guarding, no rebound. No masses appreciated. Female : deferred Musculoskeletal: Normal range of motion, no pitting or edema. No cyanosis. NEUROLOGICAL: Cranial nerves grossly intact. Normal speech, normal gait. Normal sensory, motor exams PSYCH: Normal mood, normal affect. SKIN: Warm, Dry, normal turgor, no rashes or lesions noted. Dictation was performed using [employer] recognition software Physical Exam - Vital signs Vitals: Resp BP Pulse Ox 21 H 144/104 H 100 11/14/17 09:37 11/14/17 09:37 11/14/17 09:37 Course - Re-evaluation Re-evalutation: 03/14/18 11:27 Patient noted to be an angioedema, tongue continued to swell and decision was made to intubate the patient, after giving the patient ketamine patient was intubated, she did clamp down on the tube but otherwise the procedure was handled well, the ET tube was noted to be very shallow on x-ray and was readjusted and well-positioned Patient was admitted to the ICU started on FFP and other medications 11/14/17 11:33 I spoke with patient's family members as well - Vital Signs Vital signs: Temp Pulse Resp BP Pulse Ox 99.6 F 14 123/102 H 100 11/14/17 11:16 11/14/17 11:16 11/14/17 11:16 11/14/17 11:16 - Laboratory Result Diagrams: 11/14/17 09:40 11/14/17 09:40 Laboratory results interpreted by me: 11/14/17 11/14/17 09:40 09:40 MCH 34.0 H Potassium 3.3 L Chloride 109 H Carbon Dioxide 21 L Glucose 127 H Direct Bilirubin 0.5 H AST 68 H Total Protein 8.5 H - Diagnostic Test Radiology reviewed: Image reviewed - inital xray shallow et tube placement, Reports reviewed - post intubation Procedures - Intubation Orotracheal Time of Intubation: 11:05 Airway evaluation: Large tongue, Poss. upper airway obst. Mallampati Classification: Class 4 Medications: Ketamine Intubation method: Orotracheal Blade type: Heron Blade size: 4 Equipment used: Bougie ETT size: 6.5 ETT secured at: Teeth ETT secured at (cm): 19 Breath Sounds after Intubation: Equal End tidal CO2 confirmed: Yes Post Intubation Xray: Yes - iniitally shallow et tube, put down to 26 at gum Intubation Complications: No complications Critical Care Note - Critical Care Note Total time excluding time spent on procedures (mins): 49 Comments: 49 minutes of critical care time spent in direct contact evaluating and reevaluating the patient, treating symptoms, reviewing labs and studies and speaking with family and consultants excluding any procedures Discharge - Discharge Clinical Impression: On mechanically assisted ventilation Angioedema Qualifiers: Encounter type: initial encounter Qualified Code(s): T78.3XXA - Angioneurotic edema, initial encounter Condition: Critical Disposition: ADMITTED INPATIENT Admitting Provider: Hospitalist Unit Admitted: ICU
[2017-11-14] MEDS ORDERED: KETAMINE HCL INJ 500 MG/10 ML VIAL IV ONE (10:32)
[2017-11-14] MEDS ORDERED: PROPOFOL INJ 200 MG/20 ML VIAL IV ONE ×3 (10:32→10:57)
[2017-11-14] MEDS ORDERED: MIDAZOLAM 2 MG/2 ML INJ IV ONE ×3 (10:33→13:16)
[2017-11-14] MEDS ORDERED: SUCCINYLCHOLINE CHLORIDE INJ 200 MG/10 ML VIAL IV ONE (10:33)
[2017-11-14 10:37] LABS: ABSOLUTE EOSINOPHILS # (AUTO) 0.1 10^3/uL (0.0-0.6); ABSOLUTE MONOCYTES (AUTO) 0.4 10^3/uL (0.1-1.4); ABSOLUTE NEUT (AUTO) 3.6 10^3/uL (1.7-8.2); BASOPHILS % (AUTO) 0.4 % (0-2); EOSINOPHILS % (AUTO) 2.9 % (0-6); HEMATOCRIT 40.5 % (36.0-47.0); HEMOGLOBIN 14.2 g/dL (12.0-15.5); LYMPHOCYTES % (AUTO) 19.1 % (13-45); MEAN CORPUSCULAR VOLUME 97 fl (80-97); MONOCYTES % (AUTO) 7.3 % (3-13); PLATELET COUNT 257 10^3/uL (150-450); RED BLOOD COUNT 4.17 10^6/uL (3.72-5.28); RED CELL DISTRIBUTION WIDTH 12.6 % (11.5-14.0); SEGMENTED NEUTROPHILS % (AUTO) 70.3 % (42-78); TOTAL CELLS COUNTED % (AUTO) 100 %; WHITE BLOOD COUNT 5.1 10^3/uL (4.0-10.5)
--- NOTE | 2017-11-14 10:44 | RADIOLOGY REPORT (SQ) ---
EXAM DESCRIPTION: CHEST SINGLE VIEW COMPLETED DATE/TIME: 11/14/2017 10:36 am REASON FOR STUDY: intubated COMPARISON: 06/11/2014 EXAM PARAMETERS: NUMBER OF VIEWS: One view. TECHNIQUE: Single frontal radiographic view of the chest acquired. RADIATION DOSE: NA LIMITATIONS: None. FINDINGS: LUNGS AND PLEURA: There is slight opacification behind the left heart in the midportion of the left hemidiaphragm is slightly blurred. MEDIASTINUM AND HILAR STRUCTURES: No masses. Contour normal. HEART AND VASCULAR STRUCTURES: Heart normal in size. Normal vasculature. BONES: No acute findings. HARDWARE: No endotracheal tube is seen. An NG tube extends to the stomach. OTHER: No other significant finding. IMPRESSION: NG tube placement. Cannot exclude limited left lower lobe pneumonia. TECHNICAL DOCUMENTATION: JOB ID: [id number] [employer]- All Rights Reserved Reading location - IP/workstation name: [email or web address]
[2017-11-14] MEDS ORDERED: IPRATROPIUM/ALBUTEROL 0.5-2.5 MG/3 ML AMPUL NEB PRN (10:50)
[2017-11-14] MEDS ORDERED: ONDANSETRON HCL INJ/PF 4 MG/2 ML SDV IV PRN (10:50)
[2017-11-14 10:51] LABS: ALANINE AMINOTRANSFERASE 36 U/L (9-52); ALBUMIN 4.6 g/dL (3.5-5.0); ALKALINE PHOSPHATASE 125 U/L (38-126); ANION GAP 12 (5-19); ASPARTATE AMINO TRANSFERASE 68 U/L (14-36); BILIRUBIN,DIRECT 0.5 mg/dL (0.0-0.4); BILIRUBIN,TOTAL 0.7 mg/dL (0.2-1.3); BLOOD UREA NITROGEN 13 mg/dL (7-20); CALCIUM 10.1 mg/dL (8.4-10.2); CARBON DIOXIDE 21 mmol/L (22-30); CHLORIDE 109 mmol/L (98-107); GLUCOSE 127 mg/dL (75-110); POTASSIUM 3.3 mmol/L (3.6-5.0); SODIUM 141.7 mmol/L (137-145); TOTAL PROTEIN 8.5 g/dL (6.3-8.2)
[2017-11-14] MEDS: METHYLPREDNISOLONE INJ 40 MG/1 ML SDV IV SCH ×3 (11:13→23:41)
--- NOTE | 2017-11-14 11:24 | PDOC H&P ---
History of Present Illness Admission Date/PCP: 11/14/17 11:00 Patient complains of: Tongue swelling and difficulty breathing History of Present Illness: KALIN MARK is a 67 year old female Patient presents to the emergency room with complaints of tongue swelling and difficulty breathing. She was noted to have the same symptoms apparently about a week ago and at that time she was advised to stop lisinopril. She apparently claims not to have used this lisinopril since then but presents again today with recurrent tongue swelling and difficulty breathing. Please note this information is obtained solely from the chart as patient is currently intubated and I am unable to obtain any history from her. It appears she was started on Norvasc as per the ED physician at that time. Patient has been sent to the emergency room ICU on admission for further management. Past Medical History Cardiac Medical History: Reports: Hypertension Denies: Coronary Artery Disease, Myocardial Infarction Pulmonary Medical History: Denies: Asthma, Bronchitis, Chronic Obstructive Pulmonary Disease (COPD), Pneumonia Neurological Medical History: Denies: Seizures GI Medical History: Reports: Hiatal Hernia Denies: Hepatitis Musculoskeltal Medical History: Reports: Arthritis Hematology: Reports: Anemia Denies: Sickle Cell Disease Past Surgical History Past Surgical History: Reports: Hysterectomy Denies: Amputation, Mastectomy Social History Information Source: [facility] Records Smoking Status: Unknown if Ever Smoked Frequency of Alcohol Use: Rare Family History Family History: Hypertension Parental Family History Reviewed: No - unable to evaluate Children Family History Reviewed: Unknown Sibling(s) Family History Reviewed.: Unknown Medication/Allergy Home Medications: Aspirin [Aspirin EC] 81 mg PO DAILY 07/15/17 Cetirizine HCl [Zyrtec 10 mg Tablet] 10 mg PO DAILY 07/15/17 Multivitamin [Tab-A-Juvencio] 1 tab PO DAILY 07/16/17 Amlodipine Besylate [Norvasc 5 mg Tablet] 5 mg PO DAILY #30 tablet 11/01/17 Linaclotide [Linzess] 1 tab PO DAILY 11/01/17 Amitriptyline HCl [Elavil 50 Mg Tablet] 50 mg PO DAILY 11/14/17 Lisinopril [Prinivil 40 mg Tablet] 40 mg PO DAILY 11/14/17 Olopatadine HCl [Pazeo] 1 drop OU DAILY 11/14/17 Pantoprazole Sodium [Protonix] 40 mg PO DAILY 11/14/17 Allergies/Adverse Reactions: Aminoglycosides Allergy (Severe, Verified 11/14/17 10:44) Angioneurotic Edema lisinopril Allergy (Severe, Verified 11/14/17 10:44) Angioneurotic Edema amlodipine Allergy (Verified 11/14/17 10:44) Review of Systems ROS unobtainable: Due to endotracheal tube Physical Exam Vital Signs: Temp Pulse Resp BP Pulse Ox 99.5 F 14 135/109 H 100 11/14/17 10:36 11/14/17 10:36 11/14/17 10:36 11/14/17 10:36 General appearance: PRESENT: other - intubated Head exam: PRESENT: atraumatic Eye exam: PRESENT: PERRLA Mouth exam: PRESENT: other - macroglossia Neck exam: ABSENT: JVD, thyromegaly Respiratory exam: PRESENT: symmetrical, other. ABSENT: wheezes Cardiovascular exam: PRESENT: RRR. ABSENT: diastolic murmur, rubs, systolic murmur GI/Abdominal exam: PRESENT: normal bowel sounds, soft. ABSENT: distended, guarding, mass, organolmegaly, rebound, tenderness Rectal exam: PRESENT: deferred Extremities exam: PRESENT: full ROM. ABSENT: calf tenderness, clubbing, pedal edema Neurological exam: PRESENT: other - sedated Skin exam: PRESENT: dry, intact, warm. ABSENT: cyanosis, rash Results Laboratory Results: Laboratory 11/14/17 11/14/17 09:40 09:40 WBC 5.1 RBC 4.17 Hgb 14.2 Hct 40.5 MCV 97 MCH 34.0 H MCHC 35.0 RDW 12.6 Plt Count 257 Seg Neutrophils % 70.3 Lymphocytes % 19.1 Monocytes % 7.3 Eosinophils % 2.9 Basophils % 0.4 Absolute Neutrophils 3.6 Absolute Lymphocytes 1.0 Absolute Monocytes 0.4 Absolute Eosinophils 0.1 Absolute Basophils 0.0 Sodium 141.7 Potassium 3.3 L Chloride 109 H Carbon Dioxide 21 L Anion Gap 12 BUN 13 Creatinine 0.90 Est GFR ( Amer) > 60 Est GFR (Non-Af Amer) > 60 Glucose 127 H Calcium 10.1 Total Bilirubin 0.7 Direct Bilirubin 0.5 H Neonat Total Bilirubin Not Reportable Neonat Direct Bilirubin Not Reportable Neonat Indirect Bili Not Reportable AST 68 H ALT 36 Alkaline Phosphatase 125 Total Protein 8.5 H Albumin 4.6 Impressions: Chest X-Ray 11/14/17 09:55 IMPRESSION: NG tube placement. Cannot exclude limited left lower lobe pneumonia. Assessment & Plan - Diagnosis (1) Angioedema Qualifiers: Encounter type: initial encounter Qualified Code(s): T78.3XXA - Angioneurotic edema, initial encounter Is this a current diagnosis for this admission?: Yes (2) Adverse reaction to NADEEM inhibitor drug Is this a current diagnosis for this admission?: Yes Plan: Patient has received steroid as well as H2 receptor antagonist and Benadryl. She has been taken off lisinopril about a week ago. (3) Acute respiratory failure Is this a current diagnosis for this admission?: Yes Plan: Currently on mechanical ventilation and we will continue with his I will also consult strapping machine tender to help manage ventilator (4) On mechanically assisted ventilation Is this a current diagnosis for this admission?: Yes Plan: Due to respiratory failure - Time Time Spent: 30 to 50 Minutes Medications reviewed and adjusted accordingly: Yes Anticipated discharge: Home Within: within 72 hours - Inpatient Certification Based on my medical assessment, after consideration of the patient's comorbidities, presenting symptoms, or acuity I expect that the services needed warrant INPATIENT care.: Yes I certify that my determination is in accordance with my understanding of Medicare's requirements for reasonable and necessary INPATIENT services [42 CFR 412.3e].: Yes Medical Necessity: Need Close Monitoring Due to Risk of Patient Decompensation, Other - Mechanical ventilation
--- NOTE | 2017-11-14 11:28 | RADIOLOGY REPORT (SQ) ---
EXAM DESCRIPTION: CHEST SINGLE VIEW COMPLETED DATE/TIME: 11/14/2017 11:13 am REASON FOR STUDY: et tube readjustment COMPARISON: 11/14/2017 EXAM PARAMETERS: NUMBER OF VIEWS: One view. TECHNIQUE: Single frontal radiographic view of the chest acquired. RADIATION DOSE: NA LIMITATIONS: None. FINDINGS: LUNGS AND PLEURA: No definite infiltrate is seen. There is improved aeration in the left base. MEDIASTINUM AND HILAR STRUCTURES: No masses. Contour normal. HEART AND VASCULAR STRUCTURES: Heart normal in size. Normal vasculature. BONES: No acute findings. HARDWARE: An endotracheal tube has its tip 3 cm above the yeison. The NG tube is in the stomach. OTHER: No other significant finding. IMPRESSION: Endotracheal tube placement. TECHNICAL DOCUMENTATION: JOB ID: [id number] [employer]- All Rights Reserved Reading location - IP/workstation name: [email or web address]
[2017-11-14] MEDS: NORMAL SALINE 1000 ML 1,000 ML IV PRN ×2 (12:08→23:42)
[2017-11-14] MEDS: HYDRALAZINE HCL INJ/PF 20 MG/1 ML SDV IV PRN ×3 (12:37→20:19)
[2017-11-14] MEDS ORDERED: ENOXAPARIN SODIUM INJ 40 MG/0.4 ML DISP.SYRIN SUBCUT ONE (13:00)
[2017-11-14] MEDS ORDERED: SUCCINYLCHOLINE CHLORIDE INJ 200 MG/10 ML VIAL ONE (14:43)
[2017-11-14] MEDS: MIDAZOLAM HCL 50 MG/100 ML RTUINJ IV PRN ×2 (15:53→21:44)
[2017-11-14] MEDS ORDERED: NITROGLYCERIN 2% OINTMENT 1 GM PACKET TP ONE (16:00)
[2017-11-14 17:24] LABS: ARTERIAL BLOOD BASE EXCESS -1.5 mmol/L; ARTERIAL BLOOD H2CO3 0.82 mmol/L (1.05-1.35); ARTERIAL BLOOD HCO3 20.5 mmol/L (20-26); ARTERIAL BLOOD O2 SATURATION 97.9 % (94-98); ARTERIAL BLOOD PCO2 27.4 mmHg (35-45); ARTERIAL BLOOD PH 7.49 (7.35-7.45); ARTERIAL BLOOD PO2 96.5 mmHg (80-100); ARTERIAL BLOOD TOTAL CO2 21.3 mmol/L (21-25)
[2017-11-14 17:25] LABS: ARTERIAL BLOOD FIO2 30%
[2017-11-14] MEDS ORDERED: NITROGLYCERIN 2% OINTMENT 1 GM PACKET TP SCH (18:00)
[2017-11-14] MEDS ORDERED: NORMAL SALINE 500 ML with ROCURONIUM BROMIDE 500 MG IV PRN ×2 (18:16)
[2017-11-14] MEDS: FAMOTIDINE INJ/PF 20 MG/2 ML SDV IV SCH (18:38)
[2017-11-14] MEDS: NITROGLYCERIN 2% OINTMENT 1 GM PACKET TP SCH (20:21)
[2017-11-15] MEDS: PROPOFOL 100 ML IV PRN ×6 (02:47→21:50)
[2017-11-15] MEDS: MIDAZOLAM HCL 50 MG/100 ML RTUINJ IV PRN ×4 (02:48→17:39)
[2017-11-15] MEDS: NITROGLYCERIN 2% OINTMENT 1 GM PACKET TP SCH ×4 (04:01→20:43)
[2017-11-15 04:18] LABS: ABSOLUTE LYMPHOCYTES (AUTO) 0.5 10^3/uL (0.5-4.7); ABSOLUTE MONOCYTES (AUTO) 0.1 10^3/uL (0.1-1.4); ABSOLUTE NEUT (AUTO) 4.4 10^3/uL (1.7-8.2); BASOPHILS % (AUTO) 0.1 % (0-2); HEMATOCRIT 35.8 % (36.0-47.0); HEMOGLOBIN 12.2 g/dL (12.0-15.5); MEAN CORPUSCULAR HEMOGLOBIN 33.2 pg (27.0-33.4); MEAN CORPUSCULAR HGB CONC 34.1 g/dL (32.0-36.0); MEAN CORPUSCULAR VOLUME 97 fl (80-97); MONOCYTES % (AUTO) 2.9 % (3-13); PLATELET COUNT 224 10^3/uL (150-450); RED BLOOD COUNT 3.67 10^6/uL (3.72-5.28); RED CELL DISTRIBUTION WIDTH 12.4 % (11.5-14.0); TOTAL CELLS COUNTED % (AUTO) 100 %
[2017-11-15 04:33] LABS: PHOSPHORUS 3.2 mg/dL (2.5-4.5)
[2017-11-15 04:34] LABS: ALANINE AMINOTRANSFERASE 41 U/L (9-52); ALBUMIN 4.4 g/dL (3.5-5.0); ALKALINE PHOSPHATASE 103 U/L (38-126); ANION GAP 14 (5-19); ASPARTATE AMINO TRANSFERASE 56 U/L (14-36); BILIRUBIN,DIRECT 0.3 mg/dL (0.0-0.4); BILIRUBIN,TOTAL 0.4 mg/dL (0.2-1.3); BLOOD UREA NITROGEN 9 mg/dL (7-20); CALCIUM 10.5 mg/dL (8.4-10.2); CARBON DIOXIDE 22 mmol/L (22-30); CHLORIDE 111 mmol/L (98-107); GLUCOSE 152 mg/dL (75-110); POTASSIUM 3.1 mmol/L (3.6-5.0); SODIUM 146.7 mmol/L (137-145); TOTAL PROTEIN 7.4 g/dL (6.3-8.2)
[2017-11-15] MEDS: METHYLPREDNISOLONE INJ 40 MG/1 ML SDV IV SCH ×4 (05:25→23:28)
[2017-11-15] MEDS: HYDRALAZINE HCL INJ/PF 20 MG/1 ML SDV IV PRN ×3 (05:25→22:45)
[2017-11-15 05:39] LABS: ARTERIAL BLOOD BASE EXCESS -1.2 mmol/L; ARTERIAL BLOOD H2CO3 1.01 mmol/L (1.05-1.35); ARTERIAL BLOOD HCO3 22.3 mmol/L (20-26); ARTERIAL BLOOD O2 SATURATION 98.1 % (94-98); ARTERIAL BLOOD PCO2 33.5 mmHg (35-45); ARTERIAL BLOOD PH 7.44 (7.35-7.45); ARTERIAL BLOOD PO2 106.2 mmHg (80-100); ARTERIAL BLOOD TOTAL CO2 23.3 mmol/L (21-25)
[2017-11-15 05:41] LABS: ARTERIAL BLOOD FIO2 30%
[2017-11-15] MEDS: POTASSIUM CHLORIDE 20 MEQ/50 ML RTU IV SCH ×2 (06:09→07:24)
[2017-11-15] MEDS: FAMOTIDINE INJ/PF 20 MG/2 ML SDV IV SCH ×2 (09:09→17:25)
[2017-11-15] MEDS: ENOXAPARIN SODIUM INJ 40 MG/0.4 ML DISP.SYRIN SUBCUT SCH (09:09)
[2017-11-15] MEDS: DEXTROSE 5%-1/2 NORMAL SALINE 1,000 ML IV PRN ×2 (10:19→19:23)
[2017-11-15 11:11] LABS: TROPONIN I 0.787 ng/mL
--- NOTE | 2017-11-15 11:52 | PDOC CONSULTATION ---
Consultation Consult Date: 11/14/17 Attending physician:: JASWANT ALMONTE Consult reason:: angioedema History of Present Illness Admission Date/PCP: 11/14/17 11:00 History of Present Illness: KALIN MARK is a 67 year old female Patient presents to the emergency room with complaints of tongue swelling and difficulty breathing. She was noted to have the same symptoms apparently about a week ago and at that time she was advised to stop lisinopril. She apparently claims not to have used this lisinopril since then but presents again today with recurrent tongue swelling and difficulty breathing. Please note this information is obtained solely from the chart as patient is currently intubated and I am unable to obtain any history from her. It appears she was started on Norvasc as per the ED physician at that time. Patient has been sent to the emergency room ICU on admission for further management. Past Medical History Cardiac Medical History: Reports: Hypertension Denies: Coronary Artery Disease, Myocardial Infarction Pulmonary Medical History: Denies: Asthma, Bronchitis, Chronic Obstructive Pulmonary Disease (COPD), Pneumonia Neurological Medical History: Denies: Seizures GI Medical History: Reports: Hiatal Hernia Denies: Hepatitis Musculoskeltal Medical History: Reports: Arthritis Hematology: Reports: Anemia Denies: Sickle Cell Disease Past Surgical History Past Surgical History: Reports: Hysterectomy Denies: Amputation, Mastectomy Social History Information Source: [facility] Records Smoking Status: Unknown if Ever Smoked Frequency of Alcohol Use: Rare Family History Family History: Hypertension Parental Family History Reviewed: No Children Family History Reviewed: No Sibling(s) Family History Reviewed.: No Medication/Allergy Home Medications: Aspirin [Aspirin EC] 81 mg PO DAILY 07/15/17 Cetirizine HCl [Zyrtec 10 mg Tablet] 10 mg PO DAILY 07/15/17 Multivitamin [Tab-A-Juvencio] 1 tab PO DAILY 07/16/17 Amlodipine Besylate [Norvasc 5 mg Tablet] 5 mg PO DAILY #30 tablet 11/01/17 Linaclotide [Linzess] 1 tab PO DAILY 11/01/17 Amitriptyline HCl [Elavil 50 Mg Tablet] 50 mg PO DAILY 11/14/17 Lisinopril [Prinivil 40 mg Tablet] 40 mg PO DAILY 11/14/17 Olopatadine HCl [Pazeo] 1 drop OU DAILY 11/14/17 Pantoprazole Sodium [Protonix] 40 mg PO DAILY 11/14/17 Allergies/Adverse Reactions: Aminoglycosides Allergy (Severe, Verified 11/14/17 10:44) Angioneurotic Edema lisinopril Allergy (Severe, Verified 11/14/17 10:44) Angioneurotic Edema amlodipine Allergy (Verified 11/14/17 10:44) Review of Systems ROS unobtainable: Due to endotracheal tube Physical Exam Vital Signs: Temp Pulse Resp BP Pulse Ox 99.3 F 115 H 15 159/105 H 100 11/14/17 18:08 11/14/17 18:00 11/14/17 18:08 11/14/17 18:08 11/14/17 18:08 Intake & Output 11/13/17 11/14/17 11/15/17 06:59 06:59 06:59 Intake Total 1048 Output Total 2200 Balance -1152 Weight 79.3 kg General appearance: PRESENT: no acute distress, disheveled, obese. ABSENT: cooperative Head exam: PRESENT: atraumatic, normocephalic Eye exam: PRESENT: conjunctiva pale. ABSENT: nystagmus, periorbital swelling, scleral icterus Mouth exam: PRESENT: dry mucosa, neck supple, tongue midline, other - ET tube Neck exam: ABSENT: carotid bruit, JVD, lymphadenopathy, thyromegaly, tracheal deviation, tracheostomy Respiratory exam: PRESENT: decreased breath sounds, prolonged expiratory phas, rhonchi, symmetrical, unlabored. ABSENT: retraction, stridor, tachypnea Cardiovascular exam: PRESENT: RRR, +S1, +S2 Pulses: PRESENT: normal radial pulses GI/Abdominal exam: PRESENT: diminished bowel sounds, soft, other - ET tube Extremities exam: ABSENT: clubbing, pedal edema Musculoskeletal exam: ABSENT: deformity, dislocation Neurological exam: ABSENT: alert, awake, oriented to person Skin exam: PRESENT: dry, warm Results Laboratory Results: 11/14/17 17:17 Carbonic Acid 0.82 L HCO3/H2CO3 Ratio 25:1 ABG pH 7.49 H ABG pCO2 27.4 L ABG pO2 96.5 ABG HCO3 20.5 ABG O2 Saturation 97.9 ABG Base Excess -1.5 FiO2 30% Impressions: Chest X-Ray 11/14/17 10:57 IMPRESSION: Endotracheal tube placement. Assessment & Plan - Diagnosis (1) Acute respiratory failure Is this a current diagnosis for this admission?: Yes Plan: supportive care (2) Angioedema Qualifiers: Encounter type: initial encounter Qualified Code(s): T78.3XXA - Angioneurotic edema, initial encounter Is this a current diagnosis for this admission?: Yes - Time Total Critical Time (Minutes): 45
--- NOTE | 2017-11-15 11:55 | PDOC PROGRESS REPORT ---
Subjective Progress Note for:: 11/15/17 Subjective:: intubated Reason For Visit: ANGIOEDEMA Physical Exam Vital Signs: Temp Pulse Resp BP Pulse Ox 97.5 F 101 H 16 134/90 H 98 11/15/17 07:38 11/15/17 08:00 11/15/17 08:00 11/15/17 07:38 11/15/17 08:00 Intake & Output 11/14/17 11/15/17 11/16/17 06:59 06:59 06:59 Intake Total 3637 Output Total 3085 350 Balance 552 -350 Weight 79.7 kg General appearance: PRESENT: no acute distress, disheveled, obese, well- developed. ABSENT: cooperative Head exam: PRESENT: atraumatic, normocephalic Eye exam: PRESENT: conjunctiva pale, EOMI. ABSENT: nystagmus, periorbital swelling, scleral icterus Mouth exam: PRESENT: dry mucosa, neck supple, tongue midline, other - ET tube Neck exam: ABSENT: carotid bruit, JVD, lymphadenopathy, thyromegaly, tracheal deviation, tracheostomy Respiratory exam: PRESENT: decreased breath sounds, prolonged expiratory phas, rhonchi, symmetrical, unlabored. ABSENT: rales, retraction, stridor, tachypnea Cardiovascular exam: PRESENT: RRR, +S1, +S2 Pulses: PRESENT: normal radial pulses GI/Abdominal exam: PRESENT: diminished bowel sounds, soft Extremities exam: ABSENT: clubbing, joint swelling Musculoskeletal exam: ABSENT: deformity, dislocation Neurological exam: ABSENT: alert, awake Skin exam: PRESENT: dry, warm Results Laboratory Results: 11/15/17 03:54 11/15/17 03:54 11/14/17 11/15/17 11/15/17 17:17 03:54 03:54 WBC 5.0 RBC 3.67 L Hgb 12.2 Hct 35.8 L MCV 97 MCH 33.2 MCHC 34.1 RDW 12.4 Plt Count 224 Seg Neutrophils % 87.0 H Lymphocytes % 10.0 L Monocytes % 2.9 L Eosinophils % 0.0 Basophils % 0.1 Absolute Neutrophils 4.4 Absolute Lymphocytes 0.5 Absolute Monocytes 0.1 Absolute Eosinophils 0.0 Absolute Basophils 0.0 Carbonic Acid 0.82 L HCO3/H2CO3 Ratio 25:1 ABG pH 7.49 H ABG pCO2 27.4 L ABG pO2 96.5 ABG HCO3 20.5 ABG O2 Saturation 97.9 ABG Base Excess -1.5 FiO2 30% Sodium Cancelled Potassium Cancelled Chloride Cancelled Carbon Dioxide Cancelled Anion Gap Cancelled BUN Cancelled Creatinine Cancelled Est GFR ( Amer) Cancelled Est GFR (Non-Af Amer) Cancelled Glucose Cancelled Calcium Cancelled Phosphorus 3.2 Magnesium 1.8 Total Bilirubin AST ALT Alkaline Phosphatase Total Protein Albumin 11/15/17 11/15/17 03:54 05:10 WBC RBC Hgb Hct MCV MCH MCHC RDW Plt Count Seg Neutrophils % Lymphocytes % Monocytes % Eosinophils % Basophils % Absolute Neutrophils Absolute Lymphocytes Absolute Monocytes Absolute Eosinophils Absolute Basophils Carbonic Acid 1.01 L HCO3/H2CO3 Ratio 22:1 ABG pH 7.44 ABG pCO2 33.5 L ABG pO2 106.2 H ABG HCO3 22.3 ABG O2 Saturation 98.1 H ABG Base Excess -1.2 FiO2 30% Sodium 146.7 H Potassium 3.1 L Chloride 111 H Carbon Dioxide 22 Anion Gap 14 BUN 9 Creatinine 0.62 Est GFR ( Amer) > 60 Est GFR (Non-Af Amer) > 60 Glucose 152 H Calcium 10.5 H Phosphorus Magnesium Total Bilirubin 0.4 AST 56 H ALT 41 Alkaline Phosphatase 103 Total Protein 7.4 Albumin 4.4 Impressions: Chest X-Ray 11/14/17 10:57 IMPRESSION: Endotracheal tube placement. Assessment & Plan - Diagnosis (1) Acute respiratory failure Is this a current diagnosis for this admission?: Yes Plan: supportive care (2) Angioedema Qualifiers: Encounter type: initial encounter Qualified Code(s): T78.3XXA - Angioneurotic edema, initial encounter Is this a current diagnosis for this admission?: Yes Plan: unchanged - Time Total Critical Time (Minutes): 40
--- NOTE | 2017-11-15 12:41 | PDOC PROGRESS REPORT ---
Subjective Progress Note for:: 11/15/17 Subjective:: Patient was admitted with angioedema and intubated by ED physician due to upper airway obstruction. She is still intubated. Telemetry noted to be showing inverted T waves and troponin was obtained which is 0.7. 12-lead EKG also shows abnormal EKG with inverted T waves diffusely. Cardiology consult has been ordered Reason For Visit: ANGIOEDEMA Physical Exam Vital Signs: Temp Pulse Resp BP Pulse Ox 98.4 F 101 H 13 157/102 H 99 11/15/17 10:08 11/15/17 08:00 11/15/17 10:08 11/15/17 10:08 11/15/17 10:08 Intake & Output 11/14/17 11/15/17 11/16/17 06:59 06:59 06:59 Intake Total 3637 Output Total 3085 600 Balance 552 -600 Weight 79.7 kg General appearance: PRESENT: no acute distress, other - Intubated Head exam: PRESENT: atraumatic Eye exam: PRESENT: PERRLA, other - Pinpoint Ear exam: PRESENT: normal external ear exam Mouth exam: PRESENT: other - Macroglossia Neck exam: PRESENT: other - Swelling Respiratory exam: PRESENT: decreased breath sounds, other - Mechanical ventilation Cardiovascular exam: PRESENT: RRR. ABSENT: diastolic murmur, rubs, systolic murmur GI/Abdominal exam: PRESENT: normal bowel sounds, soft. ABSENT: distended, guarding, mass, organolmegaly, rebound, tenderness Rectal exam: PRESENT: deferred Extremities exam: PRESENT: full ROM. ABSENT: calf tenderness - Sedated, clubbing, pedal edema Results Laboratory Results: 11/15/17 03:54 11/15/17 03:54 11/14/17 11/15/17 11/15/17 17:17 03:54 03:54 WBC 5.0 RBC 3.67 L Hgb 12.2 Hct 35.8 L MCV 97 MCH 33.2 MCHC 34.1 RDW 12.4 Plt Count 224 Seg Neutrophils % 87.0 H Lymphocytes % 10.0 L Monocytes % 2.9 L Eosinophils % 0.0 Basophils % 0.1 Absolute Neutrophils 4.4 Absolute Lymphocytes 0.5 Absolute Monocytes 0.1 Absolute Eosinophils 0.0 Absolute Basophils 0.0 Carbonic Acid 0.82 L HCO3/H2CO3 Ratio 25:1 ABG pH 7.49 H ABG pCO2 27.4 L ABG pO2 96.5 ABG HCO3 20.5 ABG O2 Saturation 97.9 ABG Base Excess -1.5 FiO2 30% Sodium Cancelled Potassium Cancelled Chloride Cancelled Carbon Dioxide Cancelled Anion Gap Cancelled BUN Cancelled Creatinine Cancelled Est GFR ( Amer) Cancelled Est GFR (Non-Af Amer) Cancelled Glucose Cancelled Calcium Cancelled Phosphorus 3.2 Magnesium 1.8 Total Bilirubin AST ALT Alkaline Phosphatase Total Protein Albumin 11/15/17 11/15/17 03:54 05:10 WBC RBC Hgb Hct MCV MCH MCHC RDW Plt Count Seg Neutrophils % Lymphocytes % Monocytes % Eosinophils % Basophils % Absolute Neutrophils Absolute Lymphocytes Absolute Monocytes Absolute Eosinophils Absolute Basophils Carbonic Acid 1.01 L HCO3/H2CO3 Ratio 22:1 ABG pH 7.44 ABG pCO2 33.5 L ABG pO2 106.2 H ABG HCO3 22.3 ABG O2 Saturation 98.1 H ABG Base Excess -1.2 FiO2 30% Sodium 146.7 H Potassium 3.1 L Chloride 111 H Carbon Dioxide 22 Anion Gap 14 BUN 9 Creatinine 0.62 Est GFR ( Amer) > 60 Est GFR (Non-Af Amer) > 60 Glucose 152 H Calcium 10.5 H Phosphorus Magnesium Total Bilirubin 0.4 AST 56 H ALT 41 Alkaline Phosphatase 103 Total Protein 7.4 Albumin 4.4 11/15/17 11/15/17 10:12 10:12 Creatine Kinase 150 H CK-MB (CK-2) 6.00 H Troponin I 0.787 Impressions: Chest X-Ray 11/14/17 10:57 IMPRESSION: Endotracheal tube placement. Assessment & Plan - Diagnosis (1) Angioedema Qualifiers: Encounter type: initial encounter Qualified Code(s): T78.3XXA - Angioneurotic edema, initial encounter Is this a current diagnosis for this admission?: Yes Plan: Is still not clear to me if patient was taking NADEEM inhibitor because she apparently had been advised to discontinue this at prior visit We will continue with supportive care as well as H2 receptor antagonist and steroids (2) Adverse reaction to NADEEM inhibitor drug Is this a current diagnosis for this admission?: Yes Plan: ensure to abstain from his centimeters and Arbs (3) Acute respiratory failure Is this a current diagnosis for this admission?: Yes Plan: Continue mechanical ventilation as patient is not ready to be weaned off (4) On mechanically assisted ventilation Is this a current diagnosis for this admission?: Yes Plan: Due to respiratory failure (5) Elevated troponin I level Is this a current diagnosis for this admission?: Yes Plan: With abnormal EKG. Cardiology consult. This may be a type II stress related demand ischemia (6) Hypokalemia Is this a current diagnosis for this admission?: Yes Plan: We will continue to replace (7) Hypernatremia Is this a current diagnosis for this admission?: Yes Plan: Change IV fluid to hypotonic fluids - Time Time Spent with patient: 15-24 minutes Total Critical Time (Minutes): 15 Medications reviewed and adjusted accordingly: Yes Anticipated discharge: Home Within: within 72 hours
[2017-11-15] MEDS ORDERED: (PENDING PHARMACY ID) (Olopatadine Hcl [Pazeo] 1 DROP) OU SCH (12:45)
[2017-11-15] MEDS: DIPHENHYDRAMINE HCL 25 MG/10 ML UDC NG SCH ×2 (13:15→21:24)
[2017-11-15] MEDS ORDERED: ASPIRIN 81 MG TABLET, CHEWABLE NG ONE (13:30)
[2017-11-15] MEDS ORDERED: METOPROLOL TARTRATE 25 MG TABLET PO ONE (13:30)
--- NOTE | 2017-11-15 13:56 | EKG REPORT ---
SEVERITY:- ABNORMAL ECG - SINUS TACHYCARDIA PROBABLE LEFT ATRIAL ABNORMALITY BORDERLINE LEFT AXIS DEVIATION ABNORMAL T, CONSIDER ISCHEMIA, DIFFUSE LEADS PROLONGED QT INTERVAL : Confirmed by: Tien Morin MD 15-Nov-2017 13:56:00
--- NOTE | 2017-11-15 21:09 | Progress Note ---
Provider Note Provider Note: Patient seen and examined. Patient admitted with angioneurotic edema. Patient is noted to have symmetrical T-wave inversion in lateral chest leads and also troponin I elevation therefore does rule in for diagnosis of myocardial infarction, non-STEMI. At this point agree with aspirin, Lovenox, beta- codie. Have added statins. Monitor liver functions. Will consider an ischemia workup at a later date. Have ordered a 2D echo for tomorrow morning.
[2017-11-15] MEDS: METOPROLOL TARTRATE 25 MG TABLET PO SCH (21:24)
[2017-11-15] MEDS ORDERED: ATORVASTATIN CALCIUM 40 MG TABLET PO SCH (22:00)
[2017-11-16] MEDS: MIDAZOLAM HCL 50 MG/100 ML RTUINJ IV PRN ×5 (00:45→23:57)
[2017-11-16] MEDS: NITROGLYCERIN 2% OINTMENT 1 GM PACKET TP SCH ×4 (02:16→22:00)
[2017-11-16] MEDS: PROPOFOL 100 ML IV PRN ×7 (02:16→22:01)
[2017-11-16 04:35] LABS: HEMATOCRIT 39.6 % (36.0-47.0); HEMOGLOBIN 13.2 g/dL (12.0-15.5); MEAN CORPUSCULAR HEMOGLOBIN 32.7 pg (27.0-33.4); MEAN CORPUSCULAR HGB CONC 33.4 g/dL (32.0-36.0); MEAN CORPUSCULAR VOLUME 98 fl (80-97); PLATELET COUNT 242 10^3/uL (150-450); RED BLOOD COUNT 4.03 10^6/uL (3.72-5.28); RED CELL DISTRIBUTION WIDTH 13.2 % (11.5-14.0)
[2017-11-16 04:41] LABS: ALANINE AMINOTRANSFERASE 27 U/L (9-52); ALBUMIN 4.3 g/dL (3.5-5.0); ALKALINE PHOSPHATASE 91 U/L (38-126); ANION GAP 13 (5-19); ASPARTATE AMINO TRANSFERASE 51 U/L (14-36); BILIRUBIN,DIRECT 0.4 mg/dL (0.0-0.4); BILIRUBIN,TOTAL 0.4 mg/dL (0.2-1.3); BLOOD UREA NITROGEN 7 mg/dL (7-20); CALCIUM 10.3 mg/dL (8.4-10.2); CARBON DIOXIDE 21 mmol/L (22-30); CHLORIDE 114 mmol/L (98-107); CHOLESTEROL 264.08 mg/dL (0-200); GLUCOSE 147 mg/dL (75-110); POTASSIUM 3.2 mmol/L (3.6-5.0); SODIUM 147.7 mmol/L (137-145); TOTAL PROTEIN 7.9 g/dL (6.3-8.2); TRIGLYCERIDES 88 mg/dL (<150)
[2017-11-16 04:52] LABS: DIRECT LDL 145 mg/dL (<100)
[2017-11-16 05:12] LABS: ABSOLUTE LYMPHOCYTES# (MANUAL) 0.4 10^3/uL (0.5-4.7); ABSOLUTE MONOCYTES # (MANUAL) 0.2 10^3/uL (0.1-1.4); ABSOLUTE NEUTROPHILS# (MANUAL) 11.8 10^3/uL (1.7-8.2); BASOPHILS % (MANUAL) 0 % (0-2); EOSINOPHILS % (MANUAL) 0 % (0-6); LYMPHOCYTES % (MANUAL) 3 % (13-45); MONOCYTES % (MANUAL) 2 % (3-13); PLATELET COMMENT ADEQUATE; SEGMENTED NEUTROPHILS % (MAN) 95 % (42-78); TOTAL CELLS COUNTED 100
[2017-11-16 05:14] LABS: HYPOCHROMASIA SLIGHT; WHITE BLOOD COUNT 12.4 10^3/uL (4.0-10.5)
[2017-11-16 05:20] LABS: ARTERIAL BLOOD BASE EXCESS -0.8 mmol/L; ARTERIAL BLOOD FIO2 30%; ARTERIAL BLOOD H2CO3 0.87 mmol/L (1.05-1.35); ARTERIAL BLOOD HCO3 21.6 mmol/L (20-26); ARTERIAL BLOOD O2 SATURATION 96.9 % (94-98); ARTERIAL BLOOD PCO2 28.9 mmHg (35-45); ARTERIAL BLOOD PH 7.49 (7.35-7.45); ARTERIAL BLOOD PO2 81.2 mmHg (80-100); ARTERIAL BLOOD TOTAL CO2 22.5 mmol/L (21-25)
[2017-11-16] MEDS: METHYLPREDNISOLONE INJ 40 MG/1 ML SDV IV SCH ×4 (05:21→23:57)
[2017-11-16] MEDS: DEXTROSE 5%-1/2 NORMAL SALINE 1,000 ML IV PRN ×2 (05:21→11:40)
[2017-11-16] MEDS: DIPHENHYDRAMINE HCL 25 MG/10 ML UDC NG SCH ×3 (05:21→22:00)
--- NOTE | 2017-11-16 08:09 | RADIOLOGY REPORT (SQ) ---
EXAM DESCRIPTION: CHEST SINGLE VIEW COMPLETED DATE/TIME: 11/16/2017 6:36 am REASON FOR STUDY: resp fail COMPARISON: 11/14/2017. EXAM PARAMETERS: NUMBER OF VIEWS: One view. TECHNIQUE: Single frontal radiographic view of the chest acquired. RADIATION DOSE: NA LIMITATIONS: None. FINDINGS: LUNGS AND PLEURA: Faint density in the right lung base. MEDIASTINUM AND HILAR STRUCTURES: No masses. Contour normal. HEART AND VASCULAR STRUCTURES: Heart normal in size. Normal vasculature. BONES: No acute findings. HARDWARE: Stable endotracheal tube and nasogastric tube. OTHER: No other significant finding. IMPRESSION: FAINT DENSITY IN THE RIGHT LUNG BASE, SLIGHTLY MORE PROMINENT. TECHNICAL DOCUMENTATION: JOB ID: [id number] [employer]- All Rights Reserved Reading location - IP/workstation name: [email or web address]
[2017-11-16 10:23] LABS: CREATINE KINASE MB 3.98 ng/mL (<4.55); TROPONIN I 0.336 ng/mL
--- NOTE | 2017-11-16 11:01 | PDOC CONSULTATION ---
Consultation Consult Date: 11/15/17 Attending physician:: SHANAE CHRISTIANSON Consult reason:: Positive troponin I History of Present Illness Admission Date/PCP: 11/14/17 11:00 Patient complains of: Patient presented in respiratory distress and was intubated History of Present Illness: KALIN MARK is a 67 year old female presents to the emergency room with complaints of tongue swelling and difficulty breathing. She was noted to have the same symptoms apparently about a week ago and at that time she was advised to stop lisinopril. She apparently claims not to have used this lisinopril since then but presents again today with recurrent tongue swelling and difficulty breathing. Please note this information is obtained solely from the chart as patient is currently intubated and I am unable to obtain any history from her. It appears she was started on Norvasc as per the ED physician at that time. Patient has been sent to the emergency room ICU on admission for further management. While being monitored in the ICU, patient was noted have positive troponin I. Twelve-lead EKG also shows symmetrical T-wave inversion in lateral chest leads. I was therefore consulted to evaluate patient's abnormal troponin I and lateral T-wave inversion. Patient has no known history of prior myocardial infarction. Past Medical History Cardiac Medical History: Reports: Hypertension Denies: Coronary Artery Disease, Myocardial Infarction Pulmonary Medical History: Denies: Asthma, Bronchitis, Chronic Obstructive Pulmonary Disease (COPD), Pneumonia Neurological Medical History: Denies: Seizures GI Medical History: Reports: Hiatal Hernia Denies: Hepatitis Musculoskeltal Medical History: Reports: Arthritis Hematology: Reports: Anemia Denies: Sickle Cell Disease Past Surgical History Past Surgical History: Reports: Hysterectomy Denies: Amputation, Mastectomy Social History Information Source: Patient Smoking Status: Unknown if Ever Smoked Frequency of Alcohol Use: Rare - Advance Directive Resuscitation Status: Full Code Family History Family History: Hypertension Parental Family History Reviewed: Yes Children Family History Reviewed: Yes Sibling(s) Family History Reviewed.: Yes - Chart reviewed. Medication/Allergy Home Medications: Aspirin [Aspirin EC] 81 mg PO DAILY 07/15/17 Cetirizine HCl [Zyrtec 10 mg Tablet] 10 mg PO DAILY 07/15/17 Multivitamin [Tab-A-Juvencio] 1 tab PO DAILY 07/16/17 Amlodipine Besylate [Norvasc 5 mg Tablet] 5 mg PO DAILY #30 tablet 11/01/17 Linaclotide [Linzess] 1 tab PO DAILY 11/01/17 Amitriptyline HCl [Elavil 50 Mg Tablet] 50 mg PO DAILY 11/14/17 Lisinopril [Prinivil 40 mg Tablet] 40 mg PO DAILY 11/14/17 Olopatadine HCl [Pazeo] 1 drop OU DAILY 11/14/17 Pantoprazole Sodium [Protonix] 40 mg PO DAILY 11/14/17 Allergies/Adverse Reactions: Aminoglycosides Allergy (Severe, Verified 11/14/17 10:44) Angioneurotic Edema lisinopril Allergy (Severe, Verified 11/14/17 10:44) Angioneurotic Edema amlodipine Allergy (Verified 11/14/17 10:44) Review of Systems ROS unobtainable: Due to endotracheal tube Physical Exam Vital Signs: Temp Pulse Resp BP Pulse Ox 97.9 F 93 12 153/95 H 98 11/16/17 10:39 11/16/17 07:00 11/16/17 10:39 11/16/17 10:39 11/16/17 10:39 Intake & Output 11/15/17 11/16/17 11/17/17 06:59 06:59 06:59 Intake Total 3637 4005 Output Total 3085 2575 750 Balance 552 1430 -750 Weight 79.7 kg 80.5 kg Exam: GENERAL: well-nourished and in no acute distress. Patient is intubated and sedated. Orientation cannot be checked HEAD: Atraumatic, normocephalic. EYES: Pupils equal round and reactive to light, extraocular movements could not be checked, sclera anicteric, conjunctiva are normal. ENT: TMs normal, nares patent, oropharynx clear without exudates. Moist mucous membranes. No oral ulcerations or bleeding gums noted NECK: supple without lymphadenopathy or JVD. Trachea is central. No cervical or axillary lymphadenopathy noted. Carotids are 2+ LUNGS: Breath sounds mostly clear to auscultation patient is noted to have bibasal crackles at the extreme bases CHEST: Palpation of the chest wall shows no significant chest wall tenderness or abnormalities. HEART: Ringold [employer], No PSH, 2/6 HIGINIO aortic area, 1/6 jaeger systolic murmur mitral area , no rubs or gallops. ABDOMEN: Soft, no significant tenderness appreciated, normoactive bowel sounds. No guarding, no rebound. No rigidity noted . No masses appreciated. EXTREMITIES: Pedal pulses are 1-2+, no calf tenderness noted, 1+ pedal edema noted. No clubbing or cyanosis. NEUROLOGICAL: The patient cannot participate in the neurological exam but no facial asymmetry noted. Extremities slightly hypotonic PSYCH: This cannot be evaluated. Patient cannot participate. SKIN: No significant ecchymosis, rash, or signs of pruritus noted. MUSCULOSKELETAL EXAM: No significant joint swelling noted. Patient cannot participate in musculoskeletal exam Results Laboratory Results: 11/16/17 04:17 11/16/17 04:17 11/16/17 11/16/17 11/16/17 04:17 04:17 05:10 WBC 12.4 H D RBC 4.03 Hgb 13.2 Hct 39.6 MCV 98 H MCH 32.7 MCHC 33.4 RDW 13.2 Plt Count 242 Seg Neutrophils % Not Reportable Lymphocytes % Not Reportable Monocytes % Not Reportable Eosinophils % Not Reportable Basophils % Not Reportable Absolute Neutrophils Not Reportable Absolute Lymphocytes Not Reportable Absolute Monocytes Not Reportable Absolute Eosinophils Not Reportable Absolute Basophils Not Reportable Carbonic Acid 0.87 L HCO3/H2CO3 Ratio 24:1 ABG pH 7.49 H ABG pCO2 28.9 L ABG pO2 81.2 ABG HCO3 21.6 ABG O2 Saturation 96.9 ABG Base Excess -0.8 FiO2 30% Sodium 147.7 H Potassium 3.2 L Chloride 114 H Carbon Dioxide 21 L Anion Gap 13 BUN 7 Creatinine 0.59 Est GFR ( Amer) > 60 Est GFR (Non-Af Amer) > 60 Glucose 147 H Calcium 10.3 H Magnesium 1.9 Total Bilirubin 0.4 AST 51 H ALT 27 Alkaline Phosphatase 91 Total Protein 7.9 Albumin 4.3 Triglycerides 88 Cholesterol 264.08 H LDL Cholesterol Direct 145 H VLDL Cholesterol 18.0 HDL Cholesterol 80 11/15/17 11/15/17 11/16/17 10:12 10:12 09:29 Creatine Kinase 150 H 101 CK-MB (CK-2) 6.00 H Troponin I 0.787 11/16/17 09:29 Creatine Kinase CK-MB (CK-2) 3.98 Troponin I 0.336 EKG Comments: Sinus rhythm with T-wave inversion multiple leads which seems symmetrical and ischemic in nature. Impressions: Chest X-Ray 11/16/17 06:00 IMPRESSION: FAINT DENSITY IN THE RIGHT LUNG BASE, SLIGHTLY MORE PROMINENT. Assessment & Plan - Diagnosis (1) Elevated troponin I level Is this a current diagnosis for this admission?: Yes (2) Abnormal electrocardiogram Is this a current diagnosis for this admission?: Yes (3) Non-STEMI (non-ST elevated myocardial infarction) Is this a current diagnosis for this admission?: Yes (4) Acute respiratory failure Qualifiers: Respiratory failure complication: unspecified whether with hypoxia or hypercapnia Qualified Code(s): J96.00 - Acute respiratory failure, unspecified whether with hypoxia or hypercapnia Is this a current diagnosis for this admission?: Yes (5) Angioedema Qualifiers: Encounter type: initial encounter Qualified Code(s): T78.3XXA - Angioneurotic edema, initial encounter Is this a current diagnosis for this admission?: Yes - Notes Notes: Elevated troponin I: Most likely related to non-STEMI brought on by supply demand mismatch but could well be also from intense vasoconstriction from medications used to treat angioedema. Patient will benefit from ischemia workup once she is more stable. Abnormal electrocardiogram: Patient has diffuse T-wave inversion consistent with ischemia. Treat with aspirin, statins, beta-blockers, unfortunately NADEEM inhibitor and angiotensin receptor blockers are contraindicated. Non-STEMI: Most likely brought on by supply demand mismatch and possibly intense vasoconstriction from medications used to treat angioedema. Acute respiratory failure: Mostly from angioedema with upper respiratory tract obstruction. Angioedema: Patient may need further evaluation into idiopathic angioedema and other causes of angioedema since it was claimed that patient did not take lisinopril. May consider rheumatology evaluation and consultation. - Time Time Spent: 30 to 50 Minutes - CODE STATUS was discussed, patient remains full code. Surrogate decision-maker unchanged. Multiple medical problems were addressed. More than 50% of the time spent coordinating care, discussing management plans with involved caregivers. Management plans discussed with involved personnels. Medical decision making was of moderate to high complexity , patient's has multiple comorbidities. Medications reviewed and adjusted accordingly: Yes
--- NOTE | 2017-11-16 11:06 | PDOC PROGRESS REPORT ---
Subjective Progress Note for:: 11/16/17 Subjective:: Patient was seen yesterday in consultation. A provider note was entered. A full consultation was dictated earlier today. Patient remains intubated and sedated. Her tongue and upper airways still very swollen. No plans for extubation at this time. Lisinopril and amlodipine has been added to the allergy. Reason For Visit: ANGIOEDEMA Physical Exam Vital Signs: Temp Pulse Resp BP Pulse Ox 97.9 F 93 12 153/95 H 98 11/16/17 10:39 11/16/17 07:00 11/16/17 10:39 11/16/17 10:39 11/16/17 10:39 Intake & Output 11/15/17 11/16/17 11/17/17 06:59 06:59 06:59 Intake Total 3637 4005 Output Total 3085 2575 750 Balance 552 1430 -750 Weight 79.7 kg 80.5 kg Exam: GENERAL: well-nourished and in no acute distress. Patient is intubated and sedated. Orientation cannot be checked HEAD: Atraumatic, normocephalic. EYES: Pupils equal round and reactive to light, extraocular movements could not be checked, sclera anicteric, conjunctiva are normal. ENT: TMs normal, nares patent, oropharynx clear without exudates. Moist mucous membranes. No oral ulcerations or bleeding gums noted NECK: supple without lymphadenopathy or JVD. Trachea is central. No cervical or axillary lymphadenopathy noted. Carotids are 2+ LUNGS: Breath sounds mostly clear to auscultation patient is noted to have bibasal crackles at the extreme bases CHEST: Palpation of the chest wall shows no significant chest wall tenderness or abnormalities. 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 ABDOMEN: Soft, no significant tenderness appreciated, normoactive bowel sounds. No guarding, no rebound. No rigidity noted . No masses appreciated. EXTREMITIES: Pedal pulses are 1-2+, no calf tenderness noted, 1+ pedal edema noted. No clubbing or cyanosis. NEUROLOGICAL: The patient cannot participate in the neurological exam but no facial asymmetry noted. Extremities slightly hypotonic PSYCH: This cannot be evaluated. Patient cannot participate. SKIN: No significant ecchymosis, rash, or signs of pruritus noted. MUSCULOSKELETAL EXAM: No significant joint swelling noted. Patient cannot participate in musculoskeletal exam Results Laboratory Results: 11/16/17 04:17 11/16/17 04:17 11/16/17 11/16/17 11/16/17 04:17 04:17 05:10 WBC 12.4 H D RBC 4.03 Hgb 13.2 Hct 39.6 MCV 98 H MCH 32.7 MCHC 33.4 RDW 13.2 Plt Count 242 Seg Neutrophils % Not Reportable Lymphocytes % Not Reportable Monocytes % Not Reportable Eosinophils % Not Reportable Basophils % Not Reportable Absolute Neutrophils Not Reportable Absolute Lymphocytes Not Reportable Absolute Monocytes Not Reportable Absolute Eosinophils Not Reportable Absolute Basophils Not Reportable Carbonic Acid 0.87 L HCO3/H2CO3 Ratio 24:1 ABG pH 7.49 H ABG pCO2 28.9 L ABG pO2 81.2 ABG HCO3 21.6 ABG O2 Saturation 96.9 ABG Base Excess -0.8 FiO2 30% Sodium 147.7 H Potassium 3.2 L Chloride 114 H Carbon Dioxide 21 L Anion Gap 13 BUN 7 Creatinine 0.59 Est GFR ( Amer) > 60 Est GFR (Non-Af Amer) > 60 Glucose 147 H Calcium 10.3 H Magnesium 1.9 Total Bilirubin 0.4 AST 51 H ALT 27 Alkaline Phosphatase 91 Total Protein 7.9 Albumin 4.3 Triglycerides 88 Cholesterol 264.08 H LDL Cholesterol Direct 145 H VLDL Cholesterol 18.0 HDL Cholesterol 80 11/15/17 11/15/17 11/16/17 10:12 10:12 09:29 Creatine Kinase 150 H 101 CK-MB (CK-2) 6.00 H Troponin I 0.787 11/16/17 09:29 Creatine Kinase CK-MB (CK-2) 3.98 Troponin I 0.336 EKG Comments: Shows sinus rhythm with intermittent sinus tachycardia. No other malignant cardiac dysrhythmias noted Impressions: Chest X-Ray 11/16/17 06:00 IMPRESSION: FAINT DENSITY IN THE RIGHT LUNG BASE, SLIGHTLY MORE PROMINENT. Assessment & Plan - Diagnosis (1) Elevated troponin I level Is this a current diagnosis for this admission?: Yes (2) Abnormal electrocardiogram Is this a current diagnosis for this admission?: Yes (3) Non-STEMI (non-ST elevated myocardial infarction) Is this a current diagnosis for this admission?: Yes (4) Acute respiratory failure Qualifiers: Respiratory failure complication: unspecified whether with hypoxia or hypercapnia Qualified Code(s): J96.00 - Acute respiratory failure, unspecified whether with hypoxia or hypercapnia Is this a current diagnosis for this admission?: Yes (5) Angioedema Qualifiers: Encounter type: initial encounter Qualified Code(s): T78.3XXA - Angioneurotic edema, initial encounter Is this a current diagnosis for this admission?: Yes - Notes Notes: Have ordered a troponin I for trending. Patient to have a 2D echocardiogram today. It was ordered yesterday. At this point continue current supportive care. Added high-dose statins yesterday. Continue patient on aspirin and DVT prophylaxis dose of Lovenox. We will continue to follow. Overall prognosis is guarded. Elevated troponin I: Most likely related to non-STEMI brought on by supply demand mismatch but could well be also from intense vasoconstriction from medications used to treat angioedema. Patient will benefit from ischemia workup once she is more stable. Abnormal electrocardiogram: Patient has diffuse T-wave inversion consistent with ischemia. Treat with aspirin, statins, beta-blockers, unfortunately NADEEM inhibitor and angiotensin receptor blockers are contraindicated. Non-STEMI: Most likely brought on by supply demand mismatch and possibly intense vasoconstriction from medications used to treat angioedema. Acute respiratory failure: Mostly from angioedema with upper respiratory tract obstruction. Angioedema: Patient may need further evaluation into idiopathic angioedema and other causes of angioedema since it was claimed that patient did not take lisinopril. May consider rheumatology/allergy immunology evaluation and consultation on discharge. - Time Time with patient: Greater than 35 minutes - CODE STATUS was discussed, patient remains full code. Surrogate decision-maker unchanged. Multiple medical problems were addressed. More than 50% of the time spent coordinating care, discussing management plans with involved caregivers. Management plans discussed with involved personnels. Medical decision making was of moderate to high complexity, patient's has multiple comorbidities. Medications reviewed and adjusted accordingly: Yes
[2017-11-16] MEDS: HYDRALAZINE HCL INJ/PF 20 MG/1 ML SDV IV PRN ×2 (11:17→18:08)
[2017-11-16] MEDS: ASPIRIN 81 MG TABLET, CHEWABLE NG SCH (11:18)
[2017-11-16] MEDS: METOPROLOL TARTRATE 25 MG TABLET PO SCH ×2 (11:18→22:00)
[2017-11-16] MEDS: POTASSI CL 20 MEQ/50 ML RIDER 20 MEQ/50 ML RTUPB IV SCH ×2 (11:18→13:58)
[2017-11-16] MEDS: ENOXAPARIN SODIUM INJ 40 MG/0.4 ML DISP.SYRIN SUBCUT SCH (11:19)
[2017-11-16] MEDS: FAMOTIDINE INJ/PF 20 MG/2 ML SDV IV SCH ×2 (11:22→18:09)
[2017-11-16 16:54] LABS: CREATINE KINASE MB 3.03 ng/mL (<4.55); TROPONIN I 0.231 ng/mL
[2017-11-16] MEDS ORDERED: POTASSIUM CHLORIDE 20 MEQ/50 ML RTU IV ONE (17:30)
--- NOTE | 2017-11-16 17:32 | PDOC PROGRESS REPORT ---
Subjective Progress Note for:: 11/16/17 Subjective:: Patient was admitted with angioedema, and still intubated intubated Reason For Visit: ANGIOEDEMA Physical Exam Vital Signs: Temp Pulse Resp BP Pulse Ox 97.3 F 93 13 147/93 H 98 11/16/17 15:09 11/16/17 07:00 11/16/17 15:09 11/16/17 15:09 11/16/17 15:09 Intake & Output 11/15/17 11/16/17 11/17/17 06:59 06:59 06:59 Intake Total 3637 4005 50 Output Total 3085 2575 1150 Balance 552 1430 -1100 Weight 79.7 kg 80.5 kg General appearance: PRESENT: no acute distress, well-developed, well-nourished Head exam: PRESENT: atraumatic, normocephalic Eye exam: PRESENT: conjunctiva pink, EOMI, PERRLA. ABSENT: scleral icterus Ear exam: PRESENT: normal external ear exam Mouth exam: PRESENT: moist, tongue midline Neck exam: ABSENT: carotid bruit, JVD, lymphadenopathy, thyromegaly Respiratory exam: PRESENT: clear to auscultation marcello. ABSENT: rales, rhonchi, wheezes Cardiovascular exam: PRESENT: RRR. ABSENT: diastolic murmur, rubs, systolic murmur Pulses: PRESENT: normal dorsalis pedis pul Vascular exam: PRESENT: normal capillary refill GI/Abdominal exam: PRESENT: normal bowel sounds, soft. ABSENT: distended, guarding, mass, organolmegaly, rebound, tenderness Rectal exam: PRESENT: deferred Extremities exam: PRESENT: full ROM. ABSENT: calf tenderness, clubbing, pedal edema Neurological exam: PRESENT: alert, awake, oriented to person, oriented to place , oriented to time, oriented to situation, CN II-XII grossly intact. ABSENT: motor sensory deficit Psychiatric exam: PRESENT: appropriate affect, normal mood. ABSENT: homicidal ideation, suicidal ideation Skin exam: PRESENT: dry, intact, warm. ABSENT: cyanosis, rash Results Laboratory Results: 11/16/17 04:17 11/16/17 15:30 11/16/17 11/16/17 11/16/17 04:17 04:17 05:10 WBC 12.4 H D RBC 4.03 Hgb 13.2 Hct 39.6 MCV 98 H MCH 32.7 MCHC 33.4 RDW 13.2 Plt Count 242 Seg Neutrophils % Not Reportable Lymphocytes % Not Reportable Monocytes % Not Reportable Eosinophils % Not Reportable Basophils % Not Reportable Absolute Neutrophils Not Reportable Absolute Lymphocytes Not Reportable Absolute Monocytes Not Reportable Absolute Eosinophils Not Reportable Absolute Basophils Not Reportable Carbonic Acid 0.87 L HCO3/H2CO3 Ratio 24:1 ABG pH 7.49 H ABG pCO2 28.9 L ABG pO2 81.2 ABG HCO3 21.6 ABG O2 Saturation 96.9 ABG Base Excess -0.8 FiO2 30% Sodium 147.7 H Potassium 3.2 L Chloride 114 H Carbon Dioxide 21 L Anion Gap 13 BUN 7 Creatinine 0.59 Est GFR ( Amer) > 60 Est GFR (Non-Af Amer) > 60 Glucose 147 H Calcium 10.3 H Magnesium 1.9 Total Bilirubin 0.4 AST 51 H ALT 27 Alkaline Phosphatase 91 Total Protein 7.9 Albumin 4.3 Triglycerides 88 Cholesterol 264.08 H LDL Cholesterol Direct 145 H VLDL Cholesterol 18.0 HDL Cholesterol 80 11/16/17 15:30 WBC RBC Hgb Hct MCV MCH MCHC RDW Plt Count Seg Neutrophils % Lymphocytes % Monocytes % Eosinophils % Basophils % Absolute Neutrophils Absolute Lymphocytes Absolute Monocytes Absolute Eosinophils Absolute Basophils Carbonic Acid HCO3/H2CO3 Ratio ABG pH ABG pCO2 ABG pO2 ABG HCO3 ABG O2 Saturation ABG Base Excess FiO2 Sodium Potassium 3.4 L Chloride Carbon Dioxide Anion Gap BUN Creatinine Est GFR ( Amer) Est GFR (Non-Af Amer) Glucose Calcium Magnesium Total Bilirubin AST ALT Alkaline Phosphatase Total Protein Albumin Triglycerides Cholesterol LDL Cholesterol Direct VLDL Cholesterol HDL Cholesterol 11/15/17 11/15/17 11/16/17 10:12 10:12 09:29 Creatine Kinase 150 H 101 CK-MB (CK-2) 6.00 H Troponin I 0.787 11/16/17 11/16/17 11/16/17 09:29 15:30 15:30 Creatine Kinase 85 CK-MB (CK-2) 3.98 3.03 Troponin I 0.336 0.231 Impressions: Chest X-Ray 11/16/17 06:00 IMPRESSION: FAINT DENSITY IN THE RIGHT LUNG BASE, SLIGHTLY MORE PROMINENT. Assessment & Plan - Diagnosis (1) Angioedema Qualifiers: Encounter type: initial encounter Qualified Code(s): T78.3XXA - Angioneurotic edema, initial encounter Is this a current diagnosis for this admission?: Yes Plan: Still has macroglossia We will continue with supportive care as well as H2 receptor antagonist and steroids (2) Adverse reaction to NADEEM inhibitor drug Is this a current diagnosis for this admission?: Yes Plan: ensure to abstain from ACEI and Arbs (3) Acute respiratory failure Qualifiers: Respiratory failure complication: unspecified whether with hypoxia or hypercapnia Qualified Code(s): J96.00 - Acute respiratory failure, unspecified whether with hypoxia or hypercapnia Is this a current diagnosis for this admission?: Yes Plan: Continue mechanical ventilation as patient is still not ready to be weaned off (4) On mechanically assisted ventilation Is this a current diagnosis for this admission?: Yes Plan: Due to respiratory failure (5) Elevated troponin I level Is this a current diagnosis for this admission?: Yes Plan: With abnormal EKG. This may be a type II stress related demand ischemia Appreciate Cardiology input (6) Hypokalemia Is this a current diagnosis for this admission?: Yes Plan: We will continue to replace (7) Hypernatremia Is this a current diagnosis for this admission?: Yes Plan: Cont hypotonic IV fluid - Time Time Spent with patient: 15-24 minutes Medications reviewed and adjusted accordingly: Yes Anticipated discharge: SNF Within: within 72 hours - Inpatient Certification Based on my medical assessment, after consideration of the patient's comorbidities, presenting symptoms, or acuity I expect that the services needed warrant INPATIENT care.: Yes Medical Necessity: Other - Patient is intubated - Plan Summary Plan Summary: Discussed with daughter Lida Melendez, . Answered her questions satisfactorily
--- NOTE | 2017-11-16 19:00 | XCELERA REPORT ---
[address] [address] Transthoracic Echocardiogram Report Name: KALIN MARK Age: 67 yrs Gender: Female : 1950 Patient Status: Inpatient Patient Location: ICU^[id number]^A Study Date: 11/16/2017 10:39 AM Height: 65 in Weight: 175 lb BSA: 1.9 m2 Procedure: A complete two-dimensional transthoracic echocardiogram was performed (2D, M-mode, spectral and color flow Doppler). The study was technically adequate with some images being suboptimal in quality. Reason For Study: Non-STEMI, elevated troponin I Ordering Physician: ALEJANDRO MASSEY Performed By: Jose Bush Interpretation Summary The left ventricular ejection fraction is normal. Doppler measurements suggest pseudonormalized left ventricular relaxation, which is associated with grade II/IV or mild to moderate diastolic dysfunction There is borderline concentric left ventricular hypertrophy. The left ventricle is grossly normal size. Wall motion cannot be accurately commented on, but no definite regional wall motion abnormalities noted. The right ventricular systolic function is normal. The left atrial size is normal. The right atrium is normal. There is a trace amount of mitral regurgitation There is no mitral valve stenosis. No aortic regurgitation is present. There is no aortic valve stenosis There is a trace or physiologic amount of tricuspid regurgitation Tricuspid regurgitation jet envelope not well defined to measure RV systolic pressure accurately. The aortic root is not well visualized but is probably normal size. The inferior vena cava appeared normal and decreased < 50% with respiration (RAP 10-15 mmHg) There is no pericardial effusion. MMode/2D Measurements & Calculations RVDd: 2.4 cm LVIDd: 4.3 cm FS: 42.8 % Ao root diam: 3.2 cm IVSd: 0.86 cm LVIDs: 2.5 cm EDV(Teich): 83.0 ml LVPWd: 1.0 cm ESV(Teich): 21.4 ml Ao root area: 8.0 cm2 EF(Teich): 74.2 % LA dimension: 2.1 cm Doppler Measurements & Calculations MV E max phillip: MV P1/2t max phillip: Ao V2 max: LV V1 max P.9 cm/sec 58.5 cm/sec 121.3 cm/sec 3.3 mmHg MV A max phillip: MV P1/2t: 57.1 msec Ao max PG: LV V1 max: 103.5 cm/sec 5.9 mmHg 91.2 cm/sec MV E/A: 0.55 MVA(P1/2t): 3.9 cm2 MV dec slope: 300.1 cm/sec2 PA V2 max: PI end-d phillip: TR max phillip: 88.8 cm/sec 123.8 cm/sec 238.9 cm/sec PA max P.2 mmHg TR max P.8 mmHg Left Ventricle The left ventricle is grossly normal size. There is borderline concentric left ventricular hypertrophy. The left ventricular ejection fraction is normal. Doppler measurements suggest pseudonormalized left ventricular relaxation, which is associated with grade II/IV or mild to moderate diastolic dysfunction. Wall motion cannot be accurately commented on, but no definite regional wall motion abnormalities noted. Right Ventricle The right ventricle is grossly normal size. There is normal right ventricular wall thickness. The right ventricular systolic function is normal. Atria The right atrium is normal. The left atrial size is normal. Interarterial septum not well visualized and not well dopplered. Cannot comment on ASD/PFO presence. Mitral Valve The mitral valve is grossly normal. There is no mitral valve stenosis. There is a trace amount of mitral regurgitation. Aortic Valve The aortic valve is not well visualized secondary to technical limitations. There is no aortic valve stenosis. No aortic regurgitation is present. Tricuspid Valve The tricuspid valve is not well visualized, but is grossly normal. There is no tricuspid stenosis. There is a trace or physiologic amount of tricuspid regurgitation. Tricuspid regurgitation jet envelope not well defined to measure RV systolic pressure accurately. Pulmonic Valve The pulmonic valve is not well visualized. Great Vessels The aortic root is not well visualized but is probably normal size. The inferior vena cava appeared normal and decreased < 50% with respiration (RAP 10-15 mmHg). Effusions There is no pericardial effusion. : ALEJANDRO MASSEY > Alejandro Massey
--- NOTE | 2017-11-16 20:57 | EKG REPORT ---
SEVERITY:- ABNORMAL ECG - SINUS RHYTHM LEFT AXIS DEVIATION ABNORMAL T, CONSIDER ISCHEMIA, DIFFUSE LEADS PROLONGED QT INTERVAL : Confirmed by: Tien Morin MD 16-Nov-2017 20:56:58
[2017-11-16] MEDS ORDERED: ATORVASTATIN CALCIUM 40 MG TABLET PO SCH (22:00)
[2017-11-16] MEDS: ATORVASTATIN CALCIUM 80 MG TABLET PO SCH (22:01)
[2017-11-16 22:46] LABS: CREATINE KINASE MB 2.67 ng/mL (<4.55); TROPONIN I 0.184 ng/mL
[2017-11-17] MEDS: PROPOFOL 100 ML IV PRN ×8 (02:21→22:39)
[2017-11-17 04:19] LABS: HEMATOCRIT 37.5 % (36.0-47.0); HEMOGLOBIN 12.7 g/dL (12.0-15.5); MEAN CORPUSCULAR HEMOGLOBIN 33.3 pg (27.0-33.4); MEAN CORPUSCULAR HGB CONC 33.9 g/dL (32.0-36.0); MEAN CORPUSCULAR VOLUME 98 fl (80-97); PLATELET COUNT 234 10^3/uL (150-450); RED BLOOD COUNT 3.82 10^6/uL (3.72-5.28); RED CELL DISTRIBUTION WIDTH 13.1 % (11.5-14.0); WHITE BLOOD COUNT 9.9 10^3/uL (4.0-10.5)
[2017-11-17 04:39] LABS: ABSOLUTE LYMPHOCYTES# (MANUAL) 0.2 10^3/uL (0.5-4.7); ABSOLUTE MONOCYTES # (MANUAL) 0.5 10^3/uL (0.1-1.4); ABSOLUTE NEUTROPHILS# (MANUAL) 9.2 10^3/uL (1.7-8.2); ANION GAP 12 (5-19); BASOPHILS % (MANUAL) 0 % (0-2); BLOOD UREA NITROGEN 8 mg/dL (7-20); CARBON DIOXIDE 20 mmol/L (22-30); CHLORIDE 114 mmol/L (98-107); EOSINOPHILS % (MANUAL) 0 % (0-6); GLUCOSE 141 mg/dL (75-110); LYMPHOCYTES % (MANUAL) 2 % (13-45); MONOCYTES % (MANUAL) 5 % (3-13); POTASSIUM 3.3 mmol/L (3.6-5.0); SEGMENTED NEUTROPHILS % (MAN) 93 % (42-78); SODIUM 146.1 mmol/L (137-145); TOTAL CELLS COUNTED 100
[2017-11-17 04:40] LABS: PLATELET COMMENT ADEQUATE; RBC MORPHOLOGY COMMENT NORMO-CYTIC/CHROMIC; TOXIC VACUOLATION PRESENT
[2017-11-17] MEDS: MIDAZOLAM HCL 50 MG/100 ML RTUINJ IV PRN ×3 (05:49→17:12)
[2017-11-17] MEDS: NITROGLYCERIN 2% OINTMENT 1 GM PACKET TP SCH ×4 (05:50→21:40)
[2017-11-17] MEDS: METHYLPREDNISOLONE INJ 40 MG/1 ML SDV IV SCH (05:57)
[2017-11-17] MEDS: DIPHENHYDRAMINE HCL 25 MG/10 ML UDC NG SCH (05:57)
--- NOTE | 2017-11-17 07:31 | RADIOLOGY REPORT (SQ) ---
EXAM DESCRIPTION: CHEST SINGLE VIEW CLINICAL HISTORY: 67 years Female, pna COMPARISON: 11/16/17. NUMBER OF VIEWS/TECHNIQUE: 1/AP LIMITATIONS: None. FINDINGS: Small left medial basilar opacity, mild rotation artifact, normal cardiac silhouette adequate appearing endotracheal tube tip is 3.7 cm from the yeison, likely adequate enteric tube obscured distally. No pneumothorax. No acute bone defect. IMPRESSION: No significant change.
[2017-11-17 07:47] LABS: ARTERIAL BLOOD BASE EXCESS -1.5 mmol/L; ARTERIAL BLOOD FIO2 30%; ARTERIAL BLOOD H2CO3 0.97 mmol/L (1.05-1.35); ARTERIAL BLOOD HCO3 21.7 mmol/L (20-26); ARTERIAL BLOOD O2 SATURATION 97.8 % (94-98); ARTERIAL BLOOD PCO2 32.3 mmHg (35-45); ARTERIAL BLOOD PH 7.45 (7.35-7.45); ARTERIAL BLOOD PO2 98.6 mmHg (80-100); ARTERIAL BLOOD TOTAL CO2 22.7 mmol/L (21-25)
[2017-11-17] MEDS: ASPIRIN 81 MG TABLET, CHEWABLE NG SCH (09:02)
[2017-11-17] MEDS: METOPROLOL TARTRATE 25 MG TABLET PO SCH ×2 (09:02→22:03)
[2017-11-17] MEDS: ENOXAPARIN SODIUM INJ 40 MG/0.4 ML DISP.SYRIN SUBCUT SCH (09:02)
[2017-11-17] MEDS: FAMOTIDINE INJ/PF 20 MG/2 ML SDV IV SCH ×2 (09:02→17:03)
[2017-11-17] MEDS: DEXTROSE 5%-1/2 NORMAL SALINE 1,000 ML IV PRN ×2 (11:01→22:04)
[2017-11-17] MEDS: DIPHENHYDRAMINE HCL 50 MG/ML VIAL IV SCH ×2 (12:48→17:04)
[2017-11-17] MEDS: METHYLPREDNISOLONE INJ 125 MG/2 ML SDV IV SCH ×2 (12:49→17:04)
--- NOTE | 2017-11-17 14:38 | PDOC PROGRESS REPORT ---
Subjective Progress Note for:: 11/17/17 Subjective:: Patient was admitted with angioedema, Patient remains intubated Reason For Visit: ANGIOEDEMA Physical Exam Vital Signs: Temp Pulse Resp BP Pulse Ox 98.1 F 70 12 181/107 H 99 11/17/17 12:00 11/17/17 12:00 11/17/17 12:00 11/17/17 12:00 11/17/17 12:00 Intake & Output 11/16/17 11/17/17 11/18/17 06:59 06:59 06:59 Intake Total 4005 3864 Output Total 2575 3275 675 Balance 1430 589 -675 Weight 80.5 kg 81 kg General appearance: PRESENT: no acute distress, other - Intubated and sedated Eye exam: PRESENT: PERRLA Ear exam: PRESENT: normal external ear exam Mouth exam: PRESENT: other - Macroglossia Neck exam: ABSENT: carotid bruit, JVD, lymphadenopathy, thyromegaly Respiratory exam: PRESENT: clear to auscultation marcello. ABSENT: rales, rhonchi, wheezes Cardiovascular exam: PRESENT: RRR. ABSENT: diastolic murmur, rubs, systolic murmur GI/Abdominal exam: PRESENT: normal bowel sounds, soft. ABSENT: distended, guarding, mass, organolmegaly, rebound, tenderness Rectal exam: PRESENT: deferred Extremities exam: PRESENT: full ROM, joint swelling, tenderness, +1 edema, +2 edema, other Neurological exam: PRESENT: other - Unable to evaluate as she is sedated Skin exam: PRESENT: dry, intact, warm. ABSENT: cyanosis, rash Results Laboratory Results: 11/17/17 03:46 11/17/17 03:46 11/16/17 11/17/17 11/17/17 15:30 03:46 03:46 WBC 9.9 RBC 3.82 Hgb 12.7 Hct 37.5 MCV 98 H MCH 33.3 MCHC 33.9 RDW 13.1 Plt Count 234 Seg Neutrophils % Not Reportable Lymphocytes % Not Reportable Monocytes % Not Reportable Eosinophils % Not Reportable Basophils % Not Reportable Absolute Neutrophils Not Reportable Absolute Lymphocytes Not Reportable Absolute Monocytes Not Reportable Absolute Eosinophils Not Reportable Absolute Basophils Not Reportable Carbonic Acid HCO3/H2CO3 Ratio ABG pH ABG pCO2 ABG pO2 ABG HCO3 ABG O2 Saturation ABG Base Excess FiO2 Sodium 146.1 H Potassium 3.4 L 3.3 L Chloride 114 H Carbon Dioxide 20 L Anion Gap 12 BUN 8 Creatinine 0.61 Est GFR ( Amer) > 60 Est GFR (Non-Af Amer) > 60 Glucose 141 H Calcium 10.0 Magnesium 1.9 11/17/17 07:25 WBC RBC Hgb Hct MCV MCH MCHC RDW Plt Count Seg Neutrophils % Lymphocytes % Monocytes % Eosinophils % Basophils % Absolute Neutrophils Absolute Lymphocytes Absolute Monocytes Absolute Eosinophils Absolute Basophils Carbonic Acid 0.97 L HCO3/H2CO3 Ratio 22:1 ABG pH 7.45 ABG pCO2 32.3 L ABG pO2 98.6 ABG HCO3 21.7 ABG O2 Saturation 97.8 ABG Base Excess -1.5 FiO2 30% Sodium Potassium Chloride Carbon Dioxide Anion Gap BUN Creatinine Est GFR ( Amer) Est GFR (Non-Af Amer) Glucose Calcium Magnesium 11/15/17 11/15/17 11/16/17 10:12 10:12 09:29 Creatine Kinase 150 H 101 CK-MB (CK-2) 6.00 H Troponin I 0.787 11/16/17 11/16/17 11/16/17 09:29 15:30 15:30 Creatine Kinase 85 CK-MB (CK-2) 3.98 3.03 Troponin I 0.336 0.231 11/16/17 11/16/17 22:00 22:00 Creatine Kinase 70 CK-MB (CK-2) 2.67 Troponin I 0.184 Impressions: Chest X-Ray 11/17/17 06:00 IMPRESSION: No significant change. Assessment & Plan - Diagnosis (1) Angioedema Qualifiers: Encounter type: initial encounter Qualified Code(s): T78.3XXA - Angioneurotic edema, initial encounter Is this a current diagnosis for this admission?: Yes Plan: Still has macroglossia We will continue with supportive care as well as H2 receptor antagonist and steroids. there appears to be minimal changes of (2) Adverse reaction to NADEEM inhibitor drug Is this a current diagnosis for this admission?: Yes Plan: ensure to abstain from ACEI and Arbs (3) Acute respiratory failure Qualifiers: Respiratory failure complication: unspecified whether with hypoxia or hypercapnia Qualified Code(s): J96.00 - Acute respiratory failure, unspecified whether with hypoxia or hypercapnia Is this a current diagnosis for this admission?: Yes Plan: Continue mechanical ventilation as patient is still not ready to be weaned off (4) On mechanically assisted ventilation Is this a current diagnosis for this admission?: Yes Plan: Due to respiratory failure patient is not stable to be weaned off respirator unit as she still has fairly significant swelling despite being on Solu-Medrol for the last few days (5) Elevated troponin I level Is this a current diagnosis for this admission?: Yes Plan: With abnormal EKG. This may be a type II stress related demand ischemia Appreciate Cardiology input No acute interventions until extubated (6) Hypokalemia Is this a current diagnosis for this admission?: Yes Plan: We will continue to replace (7) Hypernatremia Is this a current diagnosis for this admission?: Yes Plan: Cont hypotonic IV fluid, push water via NG tube. May need to start feeding this patient has since been about 96 hours and it looks like she is not going to be extubated anytime soon - Time Time Spent with patient: 15-24 minutes Medications reviewed and adjusted accordingly: Yes Anticipated discharge: Home - Inpatient Certification Based on my medical assessment, after consideration of the patient's comorbidities, presenting symptoms, or acuity I expect that the services needed warrant INPATIENT care.: Yes Medical Necessity: Other - Mechanical ventilation
[2017-11-17] MEDS: HYDRALAZINE HCL INJ/PF 20 MG/1 ML SDV IV PRN (14:47)
[2017-11-17] MEDS ORDERED: POTASSIUM CHLORIDE 20 MEQ/15 ML UDCUP NG ONE (15:45)
[2017-11-17] MEDS: ATORVASTATIN CALCIUM 80 MG TABLET PO SCH (22:03)
[2017-11-18] MEDS: DIPHENHYDRAMINE HCL 50 MG/ML VIAL IV SCH ×4 (00:04→17:45)
[2017-11-18] MEDS: METHYLPREDNISOLONE INJ 125 MG/2 ML SDV IV SCH ×4 (00:04→17:46)
[2017-11-18] MEDS: NITROGLYCERIN 2% OINTMENT 1 GM PACKET TP SCH ×4 (02:14→21:43)
[2017-11-18] MEDS: PROPOFOL 100 ML IV PRN ×5 (02:14→21:44)
[2017-11-18 04:22] LABS: ALANINE AMINOTRANSFERASE 20 U/L (9-52); ALBUMIN 3.9 g/dL (3.5-5.0); ALKALINE PHOSPHATASE 83 U/L (38-126); ANION GAP 13 (5-19); ASPARTATE AMINO TRANSFERASE 47 U/L (14-36); BILIRUBIN,DIRECT 0.3 mg/dL (0.0-0.4); BILIRUBIN,TOTAL 0.3 mg/dL (0.2-1.3); BLOOD UREA NITROGEN 10 mg/dL (7-20); CALCIUM 9.8 mg/dL (8.4-10.2); CARBON DIOXIDE 24 mmol/L (22-30); CHLORIDE 108 mmol/L (98-107); GLUCOSE 163 mg/dL (75-110); SODIUM 144.9 mmol/L (137-145); TOTAL PROTEIN 7.1 g/dL (6.3-8.2)
[2017-11-18 04:24] LABS: ABSOLUTE LYMPHOCYTES (AUTO) 0.4 10^3/uL (0.5-4.7); ABSOLUTE MONOCYTES (AUTO) 0.4 10^3/uL (0.1-1.4); ABSOLUTE NEUT (AUTO) 5.5 10^3/uL (1.7-8.2); BASOPHILS % (AUTO) 0.5 % (0-2); EOSINOPHILS % (AUTO) 0.6 % (0-6); HEMATOCRIT 39.1 % (36.0-47.0); HEMOGLOBIN 13.4 g/dL (12.0-15.5); LYMPHOCYTES % (AUTO) 5.7 % (13-45); MEAN CORPUSCULAR HEMOGLOBIN 33.3 pg (27.0-33.4); MEAN CORPUSCULAR HGB CONC 34.4 g/dL (32.0-36.0); MEAN CORPUSCULAR VOLUME 97 fl (80-97); MONOCYTES % (AUTO) 6.4 % (3-13); PLATELET COUNT 250 10^3/uL (150-450); RED BLOOD COUNT 4.03 10^6/uL (3.72-5.28); RED CELL DISTRIBUTION WIDTH 12.7 % (11.5-14.0); SEGMENTED NEUTROPHILS % (AUTO) 86.8 % (42-78); TOTAL CELLS COUNTED % (AUTO) 100 %; WHITE BLOOD COUNT 6.3 10^3/uL (4.0-10.5)
[2017-11-18 04:26] LABS: POTASSIUM 2.8 mmol/L (3.6-5.0)
[2017-11-18] MEDS: MIDAZOLAM HCL 50 MG/100 ML RTUINJ IV PRN ×2 (04:31→15:34)
[2017-11-18] MEDS: DEXTROSE 5%-1/2 NORMAL SALINE 1,000 ML IV PRN ×2 (05:26→14:46)
[2017-11-18] MEDS ORDERED: POTASSIUM CHLORIDE 20 MEQ/15 ML UDCUP NG ONE (05:31)
[2017-11-18] MEDS ORDERED: POTASSIUM CHLORIDE 20 MEQ/15 ML UDCUP ONE (05:52)
[2017-11-18 06:59] LABS: ARTERIAL BLOOD BASE EXCESS -0.6 mmol/L; ARTERIAL BLOOD H2CO3 0.97 mmol/L (1.05-1.35); ARTERIAL BLOOD HCO3 22.4 mmol/L (20-26); ARTERIAL BLOOD O2 SATURATION 97.1 % (94-98); ARTERIAL BLOOD PCO2 32.1 mmHg (35-45); ARTERIAL BLOOD PH 7.46 (7.35-7.45); ARTERIAL BLOOD PO2 86.8 mmHg (80-100); ARTERIAL BLOOD TOTAL CO2 23.4 mmol/L (21-25)
[2017-11-18 07:08] LABS: ARTERIAL BLOOD FIO2 30%
--- NOTE | 2017-11-18 08:41 | RADIOLOGY REPORT (SQ) ---
EXAM DESCRIPTION: CHEST SINGLE VIEW COMPLETED DATE/TIME: 11/18/2017 7:05 am REASON FOR STUDY: resp failure COMPARISON: Chest films 11/14/2017, 11/16/2017, 11/17/2017 EXAM PARAMETERS: NUMBER OF VIEWS: One view. TECHNIQUE: Single frontal radiographic view of the chest acquired. RADIATION DOSE: NA LIMITATIONS: None. FINDINGS: LUNGS AND PLEURA: Minimal airspace disease just above the right hemidiaphragm, atelectasis versus pneumonia. Lungs are otherwise clear, hyperlucent from obstructive change. MEDIASTINUM AND HILAR STRUCTURES: No masses. Contour normal. HEART AND VASCULAR STRUCTURES: Stable mild cardiomegaly BONES: No acute findings. HARDWARE: Endotracheal tube tip midtrachea. Nasogastric tube tip and side port in the stomach. OTHER: No other significant finding. IMPRESSION: Minimal right basilar airspace disease atelectasis versus pneumonia. Endotracheal and nasogastric tubes in good positioning TECHNICAL DOCUMENTATION: JOB ID: [id number] [employer]- All Rights Reserved Reading location - IP/workstation name: [email or web address]
[2017-11-18] MEDS: POTASSI CL 20 MEQ/50 ML RIDER 20 MEQ/50 ML RTUPB IV SCH ×2 (08:53→12:35)
[2017-11-18] MEDS: FAMOTIDINE INJ/PF 20 MG/2 ML SDV IV SCH ×2 (09:40→17:45)
[2017-11-18] MEDS: ENOXAPARIN SODIUM INJ 40 MG/0.4 ML DISP.SYRIN SUBCUT SCH (09:42)
[2017-11-18] MEDS: ASPIRIN 81 MG TABLET, CHEWABLE NG SCH (09:42)
[2017-11-18] MEDS: METOPROLOL TARTRATE 25 MG TABLET PO SCH ×2 (10:46→22:00)
[2017-11-18] MEDS: HYDRALAZINE HCL INJ/PF 20 MG/1 ML SDV IV PRN (10:47)
[2017-11-18] MEDS ORDERED: TOBRAMYCIN SULFATE NEB 40 MG/ML 30 ML NEB ONE (12:30)
--- NOTE | 2017-11-18 16:16 | PDOC PROGRESS REPORT ---
Subjective Progress Note for:: 11/18/17 Subjective:: Patient was admitted with angioedema, Patient remains intubated Tongue swelling slightly diminished. Solu-Medrol as well as Benadryl doses were increased. Reason For Visit: ANGIOEDEMA Physical Exam Vital Signs: Temp Pulse Resp BP Pulse Ox 98.8 F 84 19 173/112 H 93 11/18/17 14:40 11/18/17 14:00 11/18/17 14:40 11/18/17 14:40 11/18/17 14:40 Intake & Output 11/17/17 11/18/17 11/19/17 06:59 06:59 06:59 Intake Total 3864 3027 Output Total 3275 9815 1420 Balance 589 -598 -1420 Weight 81 kg 80.7 kg General appearance: PRESENT: other - Intubated sedated Head exam: PRESENT: atraumatic Ear exam: PRESENT: normal external ear exam Neck exam: ABSENT: carotid bruit, JVD, lymphadenopathy, thyromegaly Respiratory exam: PRESENT: other - Mechanical l ventilation Cardiovascular exam: PRESENT: RRR. ABSENT: diastolic murmur, rubs, systolic murmur Pulses: PRESENT: normal dorsalis pedis pul GI/Abdominal exam: PRESENT: normal bowel sounds, soft. ABSENT: distended, guarding, mass, organolmegaly, rebound, tenderness Rectal exam: PRESENT: deferred Neurological exam: PRESENT: other - She is currently sedated Results Laboratory Results: 11/18/17 03:56 11/18/17 03:56 11/18/17 11/18/17 11/18/17 03:56 03:56 06:30 WBC 6.3 RBC 4.03 Hgb 13.4 Hct 39.1 MCV 97 MCH 33.3 MCHC 34.4 RDW 12.7 Plt Count 250 Seg Neutrophils % 86.8 H Lymphocytes % 5.7 L Monocytes % 6.4 Eosinophils % 0.6 Basophils % 0.5 Absolute Neutrophils 5.5 Absolute Lymphocytes 0.4 L Absolute Monocytes 0.4 Absolute Eosinophils 0.0 Absolute Basophils 0.0 Carbonic Acid 0.97 L HCO3/H2CO3 Ratio 23:1 ABG pH 7.46 H ABG pCO2 32.1 L ABG pO2 86.8 ABG HCO3 22.4 ABG O2 Saturation 97.1 ABG Base Excess -0.6 FiO2 30% Sodium 144.9 Potassium 2.8 L* Chloride 108 H Carbon Dioxide 24 Anion Gap 13 BUN 10 Creatinine 0.56 Est GFR ( Amer) > 60 Est GFR (Non-Af Amer) > 60 Glucose 163 H Calcium 9.8 Magnesium 1.8 Total Bilirubin 0.3 AST 47 H ALT 20 Alkaline Phosphatase 83 Total Protein 7.1 Albumin 3.9 11/16/17 10:30 Tracheal Aspirate Gram Stain - Final 11/16/17 10:30 Tracheal Aspirate Sputum Culture - Final Serratia Marcescens Normal Maile Absent 11/16/17 10:30 Stokes Catheter Urine Culture - Final Staph Coagulase Negative Viridans Streptococcus 11/15/17 11/15/17 11/16/17 10:12 10:12 09:29 Creatine Kinase 150 H 101 CK-MB (CK-2) 6.00 H Troponin I 0.787 11/16/17 11/16/17 11/16/17 09:29 15:30 15:30 Creatine Kinase 85 CK-MB (CK-2) 3.98 3.03 Troponin I 0.336 0.231 11/16/17 11/16/17 22:00 22:00 Creatine Kinase 70 CK-MB (CK-2) 2.67 Troponin I 0.184 Impressions: Chest X-Ray 11/18/17 06:00 IMPRESSION: Minimal right basilar airspace disease atelectasis versus pneumonia. Endotracheal and nasogastric tubes in good positioning Assessment & Plan - Diagnosis (1) Angioedema Qualifiers: Encounter type: initial encounter Qualified Code(s): T78.3XXA - Angioneurotic edema, initial encounter Is this a current diagnosis for this admission?: Yes Plan: Still has macroglossia but it appears to b resolving We will continue with supportive care as well as H2 receptor antagonist and steroids at the increased dose (2) Adverse reaction to NADEEM inhibitor drug Is this a current diagnosis for this admission?: Yes Plan: ensure to abstain from ACEI and Arbs (3) Acute respiratory failure Qualifiers: Respiratory failure complication: unspecified whether with hypoxia or hypercapnia Qualified Code(s): J96.00 - Acute respiratory failure, unspecified whether with hypoxia or hypercapnia Is this a current diagnosis for this admission?: Yes Plan: Continue mechanical ventilation and wean as tolerated (4) On mechanically assisted ventilation Is this a current diagnosis for this admission?: Yes Plan: Due to respiratory failure patient is not stable to be weaned off respirator. She still has fairly significant swelling despite being on Solu-Medrol for the last few days but the dose has been increased (5) Elevated troponin I level Is this a current diagnosis for this admission?: Yes Plan: With abnormal EKG. This may be a type II stress related demand ischemia Appreciate Cardiology input No acute interventions until stable (6) Hypokalemia Is this a current diagnosis for this admission?: Yes Plan: We will continue to replace (7) Hypernatremia Is this a current diagnosis for this admission?: Yes Plan: Cont hypotonic IV fluid, push water via NG tube. Start TF. - Time Time Spent with patient: 15-24 minutes Medications reviewed and adjusted accordingly: Yes Anticipated discharge: Home - Inpatient Certification Based on my medical assessment, after consideration of the patient's comorbidities, presenting symptoms, or acuity I expect that the services needed warrant INPATIENT care.: Yes Post Hospital Care: Other - On mechanical ventilation
[2017-11-18] MEDS ORDERED: HYDRALAZINE HCL 50 MG TABLET PEG ONE (17:15)
[2017-11-18] MEDS ORDERED: IMIPENEM/CILASTATIN SODIUM INJ 500 MG VIAL IV PRN (17:15)
[2017-11-18] MEDS ORDERED: IMIPENEM/CILASTATIN SODIUM INJ 500 MG VIAL IV ONE (17:30)
[2017-11-18] MEDS: IMIPENEM/CILASTATIN SODIUM 500 MG in NORMAL SALINE 100 ML IV SCH (17:47)
[2017-11-18] MEDS ORDERED: TOBRAMYCIN SULFATE NEB 40 MG/ML 30 ML NEB SCH (20:00)
[2017-11-18] MEDS: HYDRALAZINE HCL 50 MG TABLET PEG SCH (22:00)
[2017-11-18] MEDS: ATORVASTATIN CALCIUM 80 MG TABLET PO SCH (22:00)
[2017-11-19] MEDS: METHYLPREDNISOLONE INJ 125 MG/2 ML SDV IV SCH ×5 (01:38→23:46)
[2017-11-19] MEDS: DIPHENHYDRAMINE HCL 50 MG/ML VIAL IV SCH ×5 (01:38→23:46)
[2017-11-19] MEDS: IMIPENEM/CILASTATIN SODIUM 500 MG in NORMAL SALINE 100 ML IV SCH ×5 (01:40→23:46)
[2017-11-19] MEDS: PROPOFOL 100 ML IV PRN ×6 (01:48→22:37)
[2017-11-19] MEDS: NITROGLYCERIN 2% OINTMENT 1 GM PACKET TP SCH ×4 (03:05→21:00)
[2017-11-19 04:39] LABS: HEMATOCRIT 36.2 % (36.0-47.0); HEMOGLOBIN 12.3 g/dL (12.0-15.5); MEAN CORPUSCULAR HEMOGLOBIN 33.1 pg (27.0-33.4); MEAN CORPUSCULAR VOLUME 98 fl (80-97); PLATELET COUNT 249 10^3/uL (150-450); RED BLOOD COUNT 3.72 10^6/uL (3.72-5.28); RED CELL DISTRIBUTION WIDTH 12.4 % (11.5-14.0); WHITE BLOOD COUNT 8.1 10^3/uL (4.0-10.5)
[2017-11-19 05:04] LABS: ABSOLUTE LYMPHOCYTES# (MANUAL) 0.4 10^3/uL (0.5-4.7); ABSOLUTE MONOCYTES # (MANUAL) 0.7 10^3/uL (0.1-1.4); ALANINE AMINOTRANSFERASE 30 U/L (9-52); ALBUMIN 3.2 g/dL (3.5-5.0); ALKALINE PHOSPHATASE 67 U/L (38-126); ANION GAP 12 (5-19); ASPARTATE AMINO TRANSFERASE 33 U/L (14-36); BASOPHILS % (MANUAL) 0 % (0-2); BILIRUBIN,DIRECT 0.2 mg/dL (0.0-0.4); BILIRUBIN,TOTAL 0.3 mg/dL (0.2-1.3); BLOOD UREA NITROGEN 14 mg/dL (7-20); CALCIUM 9.7 mg/dL (8.4-10.2); CARBON DIOXIDE 22 mmol/L (22-30); CHLORIDE 110 mmol/L (98-107); EOSINOPHILS % (MANUAL) 0 % (0-6); GLUCOSE 133 mg/dL (75-110); LYMPHOCYTES % (MANUAL) 5 % (13-45); MONOCYTES % (MANUAL) 9 % (3-13); PHOSPHORUS 4.1 mg/dL (2.5-4.5); POTASSIUM 3.2 mmol/L (3.6-5.0); SEGMENTED NEUTROPHILS % (MAN) 86 % (42-78); SODIUM 143.6 mmol/L (137-145); TOTAL CELLS COUNTED 100
[2017-11-19 05:05] LABS: PLATELET COMMENT ADEQUATE; PLATELET LARGE PRESENT; TOXIC GRANULATION SLIGHT; TOXIC VACUOLATION PRESENT
[2017-11-19] MEDS: HYDRALAZINE HCL 50 MG TABLET PEG SCH ×2 (05:52→14:00)
[2017-11-19] MEDS: METOPROLOL TARTRATE 25 MG TABLET PO SCH ×2 (05:52→14:00)
[2017-11-19 06:14] LABS: ARTERIAL BLOOD BASE EXCESS -0.4 mmol/L; ARTERIAL BLOOD H2CO3 0.93 mmol/L (1.05-1.35); ARTERIAL BLOOD HCO3 22.3 mmol/L (20-26); ARTERIAL BLOOD O2 SATURATION 97.3 % (94-98); ARTERIAL BLOOD PCO2 30.8 mmHg (35-45); ARTERIAL BLOOD PH 7.48 (7.35-7.45); ARTERIAL BLOOD PO2 87.6 mmHg (80-100); ARTERIAL BLOOD TOTAL CO2 23.2 mmol/L (21-25)
[2017-11-19 06:15] LABS: ARTERIAL BLOOD FIO2 30%
[2017-11-19] MEDS ORDERED: ONDANSETRON HCL INJ/PF 4 MG/2 ML SDV IV PRN (07:30)
--- NOTE | 2017-11-19 07:46 | RADIOLOGY REPORT (SQ) ---
EXAM DESCRIPTION: CHEST SINGLE VIEW CLINICAL HISTORY: 67 years Female, resp failure COMPARISON: 11/18/17. TECHNIQUE: 1/AP LIMITATIONS: None. FINDINGS: Moderate opacity-layered effusion of the left lung base, normal cardiac silhouette, adequate appearing endotracheal tube tip is 3.9 cm from the yeison, and likely adequate enteric tube obscured at its tip. No pneumothorax. No acute bone defect. IMPRESSION: Interval worsening includes moderate opacity-layered effusion of the left lung base.
--- NOTE | 2017-11-19 10:13 | PDOC PROGRESS REPORT ---
Subjective Progress Note for:: 11/19/17 Subjective:: Patient was admitted with angioedema, Patient remains intubated Tongue swelling slightly improved. Solu-Medrol as well as Benadryl doses were increased. Reason For Visit: ANGIOEDEMA Physical Exam Vital Signs: Temp Pulse Resp BP Pulse Ox 97.7 F 77 12 134/94 H 95 11/19/17 07:23 11/19/17 07:23 11/19/17 07:23 11/19/17 07:23 11/19/17 08:00 Intake & Output 11/18/17 11/19/17 11/20/17 06:59 06:59 06:59 Intake Total 3027 3234 Output Total 3625 2220 25 Balance -598 1014 -25 Weight 80.7 kg 81.8 kg General appearance: PRESENT: no acute distress - Intubated Head exam: PRESENT: atraumatic Eye exam: PRESENT: PERRLA Mouth exam: PRESENT: other - Grossly enlarged tongue but appears to be less Respiratory exam: PRESENT: decreased breath sounds. ABSENT: wheezes - On mechanical ventilation Cardiovascular exam: PRESENT: RRR. ABSENT: diastolic murmur, rubs, systolic murmur GI/Abdominal exam: PRESENT: normal bowel sounds, soft. ABSENT: distended, guarding, mass, organolmegaly, rebound, tenderness Rectal exam: PRESENT: deferred Extremities exam: PRESENT: +1 edema Neurological exam: PRESENT: other - sedated Results Laboratory Results: 11/19/17 04:12 11/19/17 04:12 11/19/17 11/19/17 11/19/17 04:12 04:12 06:00 WBC 8.1 RBC 3.72 Hgb 12.3 Hct 36.2 MCV 98 H MCH 33.1 MCHC 34.0 RDW 12.4 Plt Count 249 Seg Neutrophils % Not Reportable Lymphocytes % Not Reportable Monocytes % Not Reportable Eosinophils % Not Reportable Basophils % Not Reportable Absolute Neutrophils Not Reportable Absolute Lymphocytes Not Reportable Absolute Monocytes Not Reportable Absolute Eosinophils Not Reportable Absolute Basophils Not Reportable Carbonic Acid 0.93 L HCO3/H2CO3 Ratio 23:1 ABG pH 7.48 H ABG pCO2 30.8 L ABG pO2 87.6 ABG HCO3 22.3 ABG O2 Saturation 97.3 ABG Base Excess -0.4 FiO2 30% Sodium 143.6 Potassium 3.2 L Chloride 110 H Carbon Dioxide 22 Anion Gap 12 BUN 14 Creatinine 0.60 Est GFR ( Amer) > 60 Est GFR (Non-Af Amer) > 60 Glucose 133 H Calcium 9.7 Phosphorus 4.1 Magnesium 1.8 Total Bilirubin 0.3 AST 33 ALT 30 Alkaline Phosphatase 67 Total Protein 6.0 L Albumin 3.2 L 11/16/17 10:30 Tracheal Aspirate Gram Stain - Final 11/16/17 10:30 Tracheal Aspirate Sputum Culture - Final Serratia Marcescens Normal Maile Absent 11/16/17 10:30 Stokes Catheter Urine Culture - Final Staph Coagulase Negative Viridans Streptococcus 11/15/17 11/15/17 11/16/17 10:12 10:12 09:29 Creatine Kinase 150 H 101 CK-MB (CK-2) 6.00 H Troponin I 0.787 11/16/17 11/16/17 11/16/17 09:29 15:30 15:30 Creatine Kinase 85 CK-MB (CK-2) 3.98 3.03 Troponin I 0.336 0.231 11/16/17 11/16/17 22:00 22:00 Creatine Kinase 70 CK-MB (CK-2) 2.67 Troponin I 0.184 Impressions: Chest X-Ray 11/19/17 06:00 IMPRESSION: Interval worsening includes moderate opacity-layered effusion of the left lung base. Assessment & Plan - Diagnosis (1) Angioedema Qualifiers: Encounter type: initial encounter Qualified Code(s): T78.3XXA - Angioneurotic edema, initial encounter Is this a current diagnosis for this admission?: Yes Plan: Still has macroglossia but it appears to be resolving We will continue with supportive care as well as H2 receptor antagonist and steroids at current dose (2) Adverse reaction to NADEEM inhibitor drug Is this a current diagnosis for this admission?: Yes (3) Acute respiratory failure Qualifiers: Respiratory failure complication: unspecified whether with hypoxia or hypercapnia Qualified Code(s): J96.00 - Acute respiratory failure, unspecified whether with hypoxia or hypercapnia Is this a current diagnosis for this admission?: Yes Plan: Continue mechanical ventilation and wean as tolerated (4) On mechanically assisted ventilation Is this a current diagnosis for this admission?: Yes Plan: Due to respiratory failure patient is not stable to be weaned off respirator. She still has fairly significant swelling despite being on Solu-Medrol for the last few days but there appears to besome slight improvement (5) Elevated troponin I level Is this a current diagnosis for this admission?: Yes Plan: With abnormal EKG. Likely type II stress related demand ischemia Appreciate Cardiology input No acute interventions until stable (6) Hypokalemia Is this a current diagnosis for this admission?: Yes Plan: We will continue to replace (7) Hypernatremia Is this a current diagnosis for this admission?: Yes Plan: Cont hypotonic IV fluid, push water via NG tube. Start TF. - Time Time Spent with patient: 15-24 minutes Medications reviewed and adjusted accordingly: Yes Anticipated discharge: Home Within: Other - when stable
[2017-11-19] MEDS: ASPIRIN 81 MG TABLET, CHEWABLE NG SCH (10:52)
[2017-11-19] MEDS: FAMOTIDINE INJ/PF 20 MG/2 ML SDV IV SCH ×2 (10:52→21:03)
[2017-11-19] MEDS: ENOXAPARIN SODIUM INJ 40 MG/0.4 ML DISP.SYRIN SUBCUT SCH (10:53)
[2017-11-19] MEDS: POTASSIUM CHLORIDE 20 MEQ/50 ML RTU IV SCH ×2 (11:27→14:45)
[2017-11-19] MEDS ORDERED: HYDRALAZINE HCL 50 MG TABLET NG ONE (14:45)
[2017-11-19] MEDS ORDERED: METOPROLOL TARTRATE 25 MG TABLET NG ONE (14:45)
[2017-11-19] MEDS: DEXTROSE 5%-1/2 NORMAL SALINE 1,000 ML IV PRN (14:55)
[2017-11-19] MEDS: MIDAZOLAM HCL 50 MG/100 ML RTUINJ IV PRN (14:57)
[2017-11-19] MEDS: HYDRALAZINE HCL INJ/PF 20 MG/1 ML SDV IV PRN (16:38)
[2017-11-19] MEDS: METOPROLOL TARTRATE 25 MG TABLET NG SCH (21:03)
--- NOTE | 2017-11-19 21:15 | PDOC PROGRESS REPORT ---
Subjective Progress Note for:: 11/16/17 Subjective:: intubated Reason For Visit: ANGIOEDEMA Physical Exam Vital Signs: Temp Pulse Resp BP Pulse Ox 97.9 F 92 13 146/94 H 98 11/16/17 08:09 11/15/17 19:00 11/16/17 08:09 11/16/17 08:09 11/16/17 08:09 Intake & Output 11/15/17 11/16/17 11/17/17 06:59 06:59 06:59 Intake Total 3637 4005 Output Total 3085 2575 550 Balance 552 1430 -550 Weight 79.7 kg 80.5 kg General appearance: PRESENT: no acute distress, disheveled, obese, well- developed. ABSENT: cooperative Head exam: PRESENT: atraumatic, normocephalic Eye exam: PRESENT: conjunctiva pale, periorbital swelling. ABSENT: EOMI, nystagmus, scleral icterus Mouth exam: PRESENT: dry mucosa, neck supple, tongue midline, other - ET tube tounge large outside el-pha Neck exam: ABSENT: carotid bruit, JVD, lymphadenopathy, thyromegaly, tracheal deviation, tracheostomy Respiratory exam: PRESENT: decreased breath sounds, prolonged expiratory phas, rales, rhonchi, symmetrical, unlabored, wheezes. ABSENT: retraction, stridor, tachypnea Cardiovascular exam: PRESENT: RRR, +S1 Pulses: PRESENT: normal radial pulses GI/Abdominal exam: PRESENT: diminished bowel sounds, soft Extremities exam: ABSENT: clubbing, joint swelling Musculoskeletal exam: ABSENT: ambulatory, deformity, dislocation Neurological exam: ABSENT: alert, awake, oriented to person Skin exam: PRESENT: dry, warm Results Laboratory Results: 11/16/17 04:17 11/16/17 04:17 11/16/17 11/16/17 11/16/17 04:17 04:17 05:10 WBC 12.4 H D RBC 4.03 Hgb 13.2 Hct 39.6 MCV 98 H MCH 32.7 MCHC 33.4 RDW 13.2 Plt Count 242 Seg Neutrophils % Not Reportable Lymphocytes % Not Reportable Monocytes % Not Reportable Eosinophils % Not Reportable Basophils % Not Reportable Absolute Neutrophils Not Reportable Absolute Lymphocytes Not Reportable Absolute Monocytes Not Reportable Absolute Eosinophils Not Reportable Absolute Basophils Not Reportable Carbonic Acid 0.87 L HCO3/H2CO3 Ratio 24:1 ABG pH 7.49 H ABG pCO2 28.9 L ABG pO2 81.2 ABG HCO3 21.6 ABG O2 Saturation 96.9 ABG Base Excess -0.8 FiO2 30% Sodium 147.7 H Potassium 3.2 L Chloride 114 H Carbon Dioxide 21 L Anion Gap 13 BUN 7 Creatinine 0.59 Est GFR ( Amer) > 60 Est GFR (Non-Af Amer) > 60 Glucose 147 H Calcium 10.3 H Magnesium 1.9 Total Bilirubin 0.4 AST 51 H ALT 27 Alkaline Phosphatase 91 Total Protein 7.9 Albumin 4.3 Triglycerides 88 Cholesterol 264.08 H LDL Cholesterol Direct 145 H VLDL Cholesterol 18.0 HDL Cholesterol 80 11/15/17 11/15/17 10:12 10:12 Creatine Kinase 150 H CK-MB (CK-2) 6.00 H Troponin I 0.787 Impressions: Chest X-Ray 11/16/17 06:00 IMPRESSION: FAINT DENSITY IN THE RIGHT LUNG BASE, SLIGHTLY MORE PROMINENT. Assessment & Plan - Diagnosis (1) Acute respiratory failure Qualifiers: Respiratory failure complication: unspecified whether with hypoxia or hypercapnia Qualified Code(s): J96.00 - Acute respiratory failure, unspecified whether with hypoxia or hypercapnia Is this a current diagnosis for this admission?: Yes Plan: supportive care (2) Angioedema Qualifiers: Encounter type: initial encounter Qualified Code(s): T78.3XXA - Angioneurotic edema, initial encounter Is this a current diagnosis for this admission?: Yes Plan: unchanged - Time Total Critical Time (Minutes): 40
--- NOTE | 2017-11-19 21:17 | PDOC PROGRESS REPORT ---
Subjective Progress Note for:: 11/17/17 Subjective:: intubated Reason For Visit: ANGIOEDEMA Physical Exam Vital Signs: Temp Pulse Resp BP Pulse Ox 97.3 F 73 13 168/106 H 99 11/17/17 10:00 11/17/17 10:00 11/17/17 10:00 11/17/17 10:00 11/17/17 10:00 Intake & Output 11/16/17 11/17/17 11/18/17 06:59 06:59 06:59 Intake Total 4005 3864 Output Total 2575 3275 275 Balance 1430 589 -275 Weight 80.5 kg 81 kg General appearance: PRESENT: no acute distress, disheveled, obese, well- developed. ABSENT: cooperative Head exam: PRESENT: atraumatic, normocephalic Eye exam: PRESENT: conjunctiva pale, periorbital swelling. ABSENT: EOMI, nystagmus, scleral icterus Mouth exam: PRESENT: dry mucosa, neck supple, tongue midline - swollen outside mouth little change last 24h, other - ET tube Neck exam: ABSENT: carotid bruit, JVD, lymphadenopathy, thyromegaly, tracheal deviation, tracheostomy Respiratory exam: PRESENT: decreased breath sounds, prolonged expiratory phas, rhonchi, symmetrical, unlabored. ABSENT: rales, retraction, stridor, tachypnea Cardiovascular exam: PRESENT: RRR, +S1, +S2. ABSENT: tachycardia Pulses: PRESENT: normal radial pulses GI/Abdominal exam: PRESENT: diminished bowel sounds, soft Extremities exam: ABSENT: calf tenderness, clubbing, joint swelling Musculoskeletal exam: ABSENT: ambulatory, deformity, dislocation Neurological exam: ABSENT: alert, awake, oriented to person Skin exam: PRESENT: dry, warm Results Laboratory Results: 11/17/17 03:46 11/17/17 03:46 11/16/17 11/17/17 11/17/17 15:30 03:46 03:46 WBC 9.9 RBC 3.82 Hgb 12.7 Hct 37.5 MCV 98 H MCH 33.3 MCHC 33.9 RDW 13.1 Plt Count 234 Seg Neutrophils % Not Reportable Lymphocytes % Not Reportable Monocytes % Not Reportable Eosinophils % Not Reportable Basophils % Not Reportable Absolute Neutrophils Not Reportable Absolute Lymphocytes Not Reportable Absolute Monocytes Not Reportable Absolute Eosinophils Not Reportable Absolute Basophils Not Reportable Carbonic Acid HCO3/H2CO3 Ratio ABG pH ABG pCO2 ABG pO2 ABG HCO3 ABG O2 Saturation ABG Base Excess FiO2 Sodium 146.1 H Potassium 3.4 L 3.3 L Chloride 114 H Carbon Dioxide 20 L Anion Gap 12 BUN 8 Creatinine 0.61 Est GFR ( Amer) > 60 Est GFR (Non-Af Amer) > 60 Glucose 141 H Calcium 10.0 Magnesium 1.9 11/17/17 07:25 WBC RBC Hgb Hct MCV MCH MCHC RDW Plt Count Seg Neutrophils % Lymphocytes % Monocytes % Eosinophils % Basophils % Absolute Neutrophils Absolute Lymphocytes Absolute Monocytes Absolute Eosinophils Absolute Basophils Carbonic Acid 0.97 L HCO3/H2CO3 Ratio 22:1 ABG pH 7.45 ABG pCO2 32.3 L ABG pO2 98.6 ABG HCO3 21.7 ABG O2 Saturation 97.8 ABG Base Excess -1.5 FiO2 30% Sodium Potassium Chloride Carbon Dioxide Anion Gap BUN Creatinine Est GFR ( Amer) Est GFR (Non-Af Amer) Glucose Calcium Magnesium 11/15/17 11/15/17 11/16/17 10:12 10:12 09:29 Creatine Kinase 150 H 101 CK-MB (CK-2) 6.00 H Troponin I 0.787 11/16/17 11/16/17 11/16/17 09:29 15:30 15:30 Creatine Kinase 85 CK-MB (CK-2) 3.98 3.03 Troponin I 0.336 0.231 11/16/17 11/16/17 22:00 22:00 Creatine Kinase 70 CK-MB (CK-2) 2.67 Troponin I 0.184 Impressions: Chest X-Ray 11/17/17 06:00 IMPRESSION: No significant change. Assessment & Plan - Diagnosis (1) Acute respiratory failure Qualifiers: Respiratory failure complication: unspecified whether with hypoxia or hypercapnia Qualified Code(s): J96.00 - Acute respiratory failure, unspecified whether with hypoxia or hypercapnia Is this a current diagnosis for this admission?: Yes Plan: supportive care (2) Angioedema Qualifiers: Encounter type: initial encounter Qualified Code(s): T78.3XXA - Angioneurotic edema, initial encounter Is this a current diagnosis for this admission?: Yes Plan: unchanged - Time Total Critical Time (Minutes): 35
--- NOTE | 2017-11-19 21:20 | PDOC PROGRESS REPORT ---
Subjective Progress Note for:: 11/18/17 Subjective:: intubated Reason For Visit: ANGIOEDEMA Physical Exam Vital Signs: Temp Pulse Resp BP Pulse Ox 97.7 F 81 12 151/107 H 96 11/18/17 08:00 11/18/17 08:00 11/18/17 08:00 11/18/17 08:00 11/18/17 08:00 Intake & Output 11/17/17 11/18/17 11/19/17 06:59 06:59 06:59 Intake Total 3864 3027 Output Total 3274 3625 270 Balance 589 -598 -270 Weight 81 kg 80.7 kg General appearance: PRESENT: no acute distress, disheveled, obese, well- developed. ABSENT: cooperative Head exam: PRESENT: atraumatic, normocephalic Eye exam: PRESENT: conjunctiva pale, periorbital swelling. ABSENT: EOMI, nystagmus, scleral icterus Mouth exam: PRESENT: dry mucosa, neck supple, tongue midline - slightly improved , other - ET tube Neck exam: ABSENT: carotid bruit, JVD, lymphadenopathy, thyromegaly, tracheal deviation, tracheostomy Respiratory exam: PRESENT: decreased breath sounds, prolonged expiratory phas, rhonchi, symmetrical, unlabored. ABSENT: retraction, stridor Cardiovascular exam: PRESENT: RRR, +S1, +S2 Pulses: PRESENT: normal radial pulses GI/Abdominal exam: PRESENT: diminished bowel sounds, soft Gentrourinary exam: PRESENT: indwelling catheter Extremities exam: ABSENT: calf tenderness, clubbing, joint swelling Musculoskeletal exam: ABSENT: ambulatory, deformity, dislocation Neurological exam: ABSENT: alert, awake, oriented to person Skin exam: PRESENT: dry, warm Results Laboratory Results: 11/18/17 03:56 11/18/17 03:56 11/18/17 11/18/17 11/18/17 03:56 03:56 06:30 WBC 6.3 RBC 4.03 Hgb 13.4 Hct 39.1 MCV 97 MCH 33.3 MCHC 34.4 RDW 12.7 Plt Count 250 Seg Neutrophils % 86.8 H Lymphocytes % 5.7 L Monocytes % 6.4 Eosinophils % 0.6 Basophils % 0.5 Absolute Neutrophils 5.5 Absolute Lymphocytes 0.4 L Absolute Monocytes 0.4 Absolute Eosinophils 0.0 Absolute Basophils 0.0 Carbonic Acid 0.97 L HCO3/H2CO3 Ratio 23:1 ABG pH 7.46 H ABG pCO2 32.1 L ABG pO2 86.8 ABG HCO3 22.4 ABG O2 Saturation 97.1 ABG Base Excess -0.6 FiO2 30% Sodium 144.9 Potassium 2.8 L* Chloride 108 H Carbon Dioxide 24 Anion Gap 13 BUN 10 Creatinine 0.56 Est GFR ( Amer) > 60 Est GFR (Non-Af Amer) > 60 Glucose 163 H Calcium 9.8 Magnesium 1.8 Total Bilirubin 0.3 AST 47 H ALT 20 Alkaline Phosphatase 83 Total Protein 7.1 Albumin 3.9 11/15/17 11/15/17 11/16/17 10:12 10:12 09:29 Creatine Kinase 150 H 101 CK-MB (CK-2) 6.00 H Troponin I 0.787 11/16/17 11/16/17 11/16/17 09:29 15:30 15:30 Creatine Kinase 85 CK-MB (CK-2) 3.98 3.03 Troponin I 0.336 0.231 11/16/17 11/16/17 22:00 22:00 Creatine Kinase 70 CK-MB (CK-2) 2.67 Troponin I 0.184 Assessment & Plan - Diagnosis (1) Acute respiratory failure Qualifiers: Respiratory failure complication: unspecified whether with hypoxia or hypercapnia Qualified Code(s): J96.00 - Acute respiratory failure, unspecified whether with hypoxia or hypercapnia Is this a current diagnosis for this admission?: Yes Plan: supportive care (2) Angioedema Qualifiers: Encounter type: initial encounter Qualified Code(s): T78.3XXA - Angioneurotic edema, initial encounter Is this a current diagnosis for this admission?: Yes Plan: unchanged - Time Total Critical Time (Minutes): 40
[2017-11-19] MEDS ORDERED: ATORVASTATIN CALCIUM 80 MG TABLET NG SCH (22:00)
[2017-11-19] MEDS: HYDRALAZINE HCL 50 MG TABLET NG SCH (22:37)
--- NOTE | 2017-11-19 23:45 | EKG REPORT ---
SEVERITY:- OTHERWISE NORMAL ECG - SINUS RHYTHM BORDERLINE LEFT AXIS DEVIATION NONSPECIFIC T WAVES CHANGES ANTERIOR PRECORDIAL LEADS : Confirmed by: Alejandro Jaramillo 19-Nov-2017 23:44:37
[2017-11-20] MEDS: NITROGLYCERIN 2% OINTMENT 1 GM PACKET TP SCH ×4 (03:12→21:46)
[2017-11-20] MEDS: PROPOFOL 100 ML IV PRN ×2 (03:13→06:27)
[2017-11-20 04:22] LABS: ARTERIAL BLOOD BASE EXCESS -4.2 mmol/L; ARTERIAL BLOOD H2CO3 0.79 mmol/L (1.05-1.35); ARTERIAL BLOOD O2 SATURATION 97.7 % (94-98); ARTERIAL BLOOD PCO2 26.1 mmHg (35-45); ARTERIAL BLOOD PH 7.46 (7.35-7.45); ARTERIAL BLOOD PO2 94.9 mmHg (80-100); ARTERIAL BLOOD TOTAL CO2 18.8 mmol/L (21-25)
[2017-11-20 04:29] LABS: ARTERIAL BLOOD FIO2 30%
[2017-11-20] MEDS: HYDRALAZINE HCL 50 MG TABLET NG SCH ×2 (05:22→13:49)
[2017-11-20] MEDS: DIPHENHYDRAMINE HCL 50 MG/ML VIAL IV SCH ×4 (05:22→23:49)
[2017-11-20] MEDS: METOPROLOL TARTRATE 25 MG TABLET NG SCH ×2 (05:22→13:49)
[2017-11-20] MEDS: METHYLPREDNISOLONE INJ 125 MG/2 ML SDV IV SCH ×4 (05:22→23:49)
[2017-11-20] MEDS: IMIPENEM/CILASTATIN SODIUM 500 MG in NORMAL SALINE 100 ML IV SCH ×4 (05:23→23:50)
[2017-11-20 05:46] LABS: HEMATOCRIT 36.8 % (36.0-47.0); HEMOGLOBIN 12.6 g/dL (12.0-15.5); MEAN CORPUSCULAR HEMOGLOBIN 33.1 pg (27.0-33.4); MEAN CORPUSCULAR HGB CONC 34.2 g/dL (32.0-36.0); MEAN CORPUSCULAR VOLUME 97 fl (80-97); PLATELET COUNT 266 10^3/uL (150-450); RED BLOOD COUNT 3.81 10^6/uL (3.72-5.28); RED CELL DISTRIBUTION WIDTH 12.5 % (11.5-14.0); WHITE BLOOD COUNT 8.6 10^3/uL (4.0-10.5)
[2017-11-20 05:57] LABS: ANION GAP 11 (5-19); BLOOD UREA NITROGEN 20 mg/dL (7-20); CALCIUM 9.4 mg/dL (8.4-10.2); CARBON DIOXIDE 20 mmol/L (22-30); CHLORIDE 110 mmol/L (98-107); GLUCOSE 172 mg/dL (75-110); SODIUM 140.6 mmol/L (137-145)
[2017-11-20 06:23] LABS: ABSOLUTE LYMPHOCYTES# (MANUAL) 0.4 10^3/uL (0.5-4.7); ABSOLUTE MONOCYTES # (MANUAL) 0.3 10^3/uL (0.1-1.4); ABSOLUTE NEUTROPHILS# (MANUAL) 7.8 10^3/uL (1.7-8.2); BASOPHILS % (MANUAL) 0 % (0-2); EOSINOPHILS % (MANUAL) 0 % (0-6); LYMPHOCYTES % (MANUAL) 5 % (13-45); MONOCYTES % (MANUAL) 4 % (3-13); POTASSIUM 2.9 mmol/L (3.6-5.0); SEGMENTED NEUTROPHILS % (MAN) 91 % (42-78); TOTAL CELLS COUNTED 100
[2017-11-20 06:24] LABS: RBC MORPHOLOGY COMMENT NORMO-CYTIC/CHROMIC; TOXIC VACUOLATION PRESENT
[2017-11-20 06:25] LABS: PLATELET COMMENT ADEQUATE; TOXIC GRANULATION SLIGHT
--- NOTE | 2017-11-20 06:50 | RADIOLOGY REPORT (SQ) ---
EXAM DESCRIPTION: CHEST SINGLE VIEW CLINICAL HISTORY: resp fail COMPARISON: 11/19/2017 FINDINGS: Single frontal view of the chest. Endotracheal tube with tip 4 cm above the yeison. NG tube with tip below the diaphragm. Leads overlie the chest. Tortuosity of the thoracic aorta. Cardiomediastinal silhouette is stable. Improved aeration the left lung base. No definite pneumothorax or pleural effusion. No acute osseous abnormalities. Upper abdominal soft tissues are unremarkable. IMPRESSION: 1. Improved aeration of the left lung base.
[2017-11-20] MEDS ORDERED: POTASSIUM CHLORIDE 10 MEQ TABLET.SA PO ONE (07:00)
[2017-11-20] MEDS: POTASSIUM CHLORIDE 20 MEQ/50 ML RTU IV SCH ×2 (07:31→09:57)
[2017-11-20] MEDS ORDERED: POTASSIUM CHLORIDE 20 MEQ/15 ML UDCUP NG ONE (08:00)
[2017-11-20] MEDS ORDERED: DEXAMETHASONE SOD PHOSPHATE INJ 4 MG/1 ML VIAL IV ONE (09:56)
[2017-11-20] MEDS: ASPIRIN 81 MG TABLET, CHEWABLE NG SCH (09:56)
[2017-11-20] MEDS: FAMOTIDINE INJ/PF 20 MG/2 ML SDV IV SCH ×2 (09:56→21:46)
[2017-11-20] MEDS: ENOXAPARIN SODIUM INJ 40 MG/0.4 ML DISP.SYRIN SUBCUT SCH (09:58)
[2017-11-20] MEDS ORDERED: POTASSIUM CHLORIDE 20 MEQ/15 ML UDCUP PO SCH (10:00)
--- NOTE | 2017-11-20 12:21 | PDOC PROGRESS REPORT ---
Subjective Progress Note for:: 11/19/17 Subjective:: Improving tounge is still outside of oropharynx Reason For Visit: ANGIOEDEMA Physical Exam Vital Signs: Temp Pulse Resp BP Pulse Ox 97.7 F 77 12 134/94 H 95 11/19/17 07:23 11/19/17 07:23 11/19/17 07:23 11/19/17 07:23 11/19/17 08:00 Intake & Output 11/18/17 11/19/17 11/20/17 06:59 06:59 06:59 Intake Total 3027 3234 Output Total 3625 2220 25 Balance -598 1014 -25 Weight 80.7 kg 81.8 kg General appearance: PRESENT: no acute distress, disheveled, obese, well- developed Head exam: PRESENT: atraumatic, normocephalic Eye exam: PRESENT: conjunctiva pale, EOMI. ABSENT: nystagmus, periorbital swelling, scleral icterus Mouth exam: PRESENT: dry mucosa, neck supple, tongue midline, other - ET tube Neck exam: ABSENT: carotid bruit, JVD, lymphadenopathy, thyromegaly, tracheal deviation, tracheostomy Respiratory exam: PRESENT: decreased breath sounds, prolonged expiratory phas, rhonchi, symmetrical, unlabored. ABSENT: crackles, rales, retraction, stridor, tachypnea Cardiovascular exam: PRESENT: RRR, +S1, +S2, tachycardia Pulses: PRESENT: normal radial pulses GI/Abdominal exam: PRESENT: diminished bowel sounds, soft Neurological exam: ABSENT: alert, awake Skin exam: PRESENT: dry, warm Results Laboratory Results: 11/19/17 04:12 11/19/17 04:12 11/19/17 11/19/17 11/19/17 04:12 04:12 06:00 WBC 8.1 RBC 3.72 Hgb 12.3 Hct 36.2 MCV 98 H MCH 33.1 MCHC 34.0 RDW 12.4 Plt Count 249 Seg Neutrophils % Not Reportable Lymphocytes % Not Reportable Monocytes % Not Reportable Eosinophils % Not Reportable Basophils % Not Reportable Absolute Neutrophils Not Reportable Absolute Lymphocytes Not Reportable Absolute Monocytes Not Reportable Absolute Eosinophils Not Reportable Absolute Basophils Not Reportable Carbonic Acid 0.93 L HCO3/H2CO3 Ratio 23:1 ABG pH 7.48 H ABG pCO2 30.8 L ABG pO2 87.6 ABG HCO3 22.3 ABG O2 Saturation 97.3 ABG Base Excess -0.4 FiO2 30% Sodium 143.6 Potassium 3.2 L Chloride 110 H Carbon Dioxide 22 Anion Gap 12 BUN 14 Creatinine 0.60 Est GFR ( Amer) > 60 Est GFR (Non-Af Amer) > 60 Glucose 133 H Calcium 9.7 Phosphorus 4.1 Magnesium 1.8 Total Bilirubin 0.3 AST 33 ALT 30 Alkaline Phosphatase 67 Total Protein 6.0 L Albumin 3.2 L 11/16/17 10:30 Tracheal Aspirate Gram Stain - Final 11/16/17 10:30 Tracheal Aspirate Sputum Culture - Final Serratia Marcescens Normal Maile Absent 11/16/17 10:30 Stokes Catheter Urine Culture - Final Staph Coagulase Negative Viridans Streptococcus 11/15/17 11/15/17 11/16/17 10:12 10:12 09:29 Creatine Kinase 150 H 101 CK-MB (CK-2) 6.00 H Troponin I 0.787 11/16/17 11/16/17 11/16/17 09:29 15:30 15:30 Creatine Kinase 85 CK-MB (CK-2) 3.98 3.03 Troponin I 0.336 0.231 11/16/17 11/16/17 22:00 22:00 Creatine Kinase 70 CK-MB (CK-2) 2.67 Troponin I 0.184 Impressions: Chest X-Ray 11/19/17 06:00 IMPRESSION: Interval worsening includes moderate opacity-layered effusion of the left lung base. Assessment & Plan - Diagnosis (1) Acute respiratory failure Qualifiers: Respiratory failure complication: unspecified whether with hypoxia or hypercapnia Qualified Code(s): J96.00 - Acute respiratory failure, unspecified whether with hypoxia or hypercapnia Is this a current diagnosis for this admission?: Yes Plan: supportive care (2) Angioedema Qualifiers: Encounter type: initial encounter Qualified Code(s): T78.3XXA - Angioneurotic edema, initial encounter Is this a current diagnosis for this admission?: Yes Plan: Improving - Time Total Critical Time (Minutes): 40
--- NOTE | 2017-11-20 12:35 | PDOC PROGRESS REPORT ---
Subjective Progress Note for:: 11/20/17 Subjective:: Lethargic but arousable Reason For Visit: ANGIOEDEMA Physical Exam Vital Signs: Temp Pulse Resp BP Pulse Ox 98.6 F 84 14 133/95 H 98 11/20/17 06:02 11/20/17 07:00 11/20/17 06:02 11/20/17 06:02 11/20/17 08:00 Intake & Output 11/19/17 11/20/17 11/21/17 06:59 06:59 06:59 Intake Total 3234 3222 Output Total 2220 1540 100 Balance 1014 1682 -100 Weight 81.8 kg 85.8 kg General appearance: PRESENT: no acute distress, disheveled, obese, well- developed Head exam: PRESENT: atraumatic, normocephalic Eye exam: PRESENT: conjunctiva pale, EOMI. ABSENT: nystagmus, periorbital swelling, scleral icterus Mouth exam: PRESENT: dry mucosa, neck supple, tongue midline, other - ET tube in place Neck exam: ABSENT: carotid bruit, JVD, lymphadenopathy, thyromegaly, tracheal deviation, tracheostomy Respiratory exam: PRESENT: decreased breath sounds, prolonged expiratory phas, rhonchi, symmetrical, unlabored. ABSENT: crackles, rales, retraction, stridor, tachypnea Cardiovascular exam: PRESENT: RRR, +S1, +S2 Pulses: PRESENT: normal radial pulses GI/Abdominal exam: PRESENT: diminished bowel sounds, soft Extremities exam: ABSENT: calf tenderness, clubbing, pedal edema Musculoskeletal exam: ABSENT: deformity, dislocation Neurological exam: PRESENT: awake Skin exam: PRESENT: dry, warm Results Laboratory Results: 11/20/17 05:35 11/20/17 05:35 11/20/17 11/20/17 11/20/17 04:10 05:35 05:35 WBC 8.6 RBC 3.81 Hgb 12.6 Hct 36.8 MCV 97 MCH 33.1 MCHC 34.2 RDW 12.5 Plt Count 266 Seg Neutrophils % Not Reportable Lymphocytes % Not Reportable Monocytes % Not Reportable Eosinophils % Not Reportable Basophils % Not Reportable Absolute Neutrophils Not Reportable Absolute Lymphocytes Not Reportable Absolute Monocytes Not Reportable Absolute Eosinophils Not Reportable Absolute Basophils Not Reportable Carbonic Acid 0.79 L HCO3/H2CO3 Ratio 22:1 ABG pH 7.46 H ABG pCO2 26.1 L ABG pO2 94.9 ABG HCO3 18.0 L ABG O2 Saturation 97.7 ABG Base Excess -4.2 FiO2 30% Sodium 140.6 Potassium 2.9 L* Chloride 110 H Carbon Dioxide 20 L Anion Gap 11 BUN 20 Creatinine 0.59 Est GFR ( Amer) > 60 Est GFR (Non-Af Amer) > 60 Glucose 172 H Calcium 9.4 Magnesium 2.1 11/15/17 11/15/17 11/16/17 10:12 10:12 09:29 Creatine Kinase 150 H 101 CK-MB (CK-2) 6.00 H Troponin I 0.787 11/16/17 11/16/17 11/16/17 09:29 15:30 15:30 Creatine Kinase 85 CK-MB (CK-2) 3.98 3.03 Troponin I 0.336 0.231 11/16/17 11/16/17 22:00 22:00 Creatine Kinase 70 CK-MB (CK-2) 2.67 Troponin I 0.184 Impressions: Chest X-Ray 11/20/17 06:00 IMPRESSION: 1. Improved aeration of the left lung base. Assessment & Plan - Diagnosis (1) Acute respiratory failure Qualifiers: Respiratory failure complication: unspecified whether with hypoxia or hypercapnia Qualified Code(s): J96.00 - Acute respiratory failure, unspecified whether with hypoxia or hypercapnia Is this a current diagnosis for this admission?: Yes Plan: Respiratory rate, FiO2, minute ventilation, airway pressures suggest successful extubation will proceed with extubation (2) Angioedema Qualifiers: Encounter type: initial encounter Qualified Code(s): T78.3XXA - Angioneurotic edema, initial encounter Is this a current diagnosis for this admission?: Yes Plan: Improving - Time Total Critical Time (Minutes): 50
--- NOTE | 2017-11-20 18:31 | PDOC PROGRESS REPORT ---
Subjective Progress Note for:: 11/20/17 Subjective:: Patient was admitted with angioedema, Patient remains intubated Tongue swelling significantly improved. Patient will be on weaning trial and hopefully extubated today Reason For Visit: ANGIOEDEMA Physical Exam Vital Signs: Temp Pulse Resp BP Pulse Ox 99.0 F 81 15 176/104 H 96 11/20/17 16:02 11/20/17 10:55 11/20/17 16:02 11/20/17 16:02 11/20/17 16:02 Intake & Output 11/19/17 11/20/17 11/21/17 06:59 06:59 06:59 Intake Total 3234 3222 Output Total 2220 1540 825 Balance 1014 1682 -825 Weight 81.8 kg 85.8 kg General appearance: PRESENT: no acute distress Head exam: PRESENT: atraumatic Ear exam: PRESENT: normal external ear exam Mouth exam: PRESENT: other - tongue swelling Neck exam: ABSENT: carotid bruit, JVD, lymphadenopathy, thyromegaly Respiratory exam: PRESENT: clear to auscultation marcello. ABSENT: rales, rhonchi, wheezes Cardiovascular exam: PRESENT: RRR. ABSENT: diastolic murmur, rubs, systolic murmur GI/Abdominal exam: PRESENT: normal bowel sounds, soft. ABSENT: distended, guarding, mass, organolmegaly, rebound, tenderness Rectal exam: PRESENT: deferred Extremities exam: PRESENT: +1 edema Neurological exam: PRESENT: other - intubated and sedated Results Laboratory Results: 11/20/17 05:35 11/20/17 05:35 11/20/17 11/20/17 11/20/17 04:10 05:35 05:35 WBC 8.6 RBC 3.81 Hgb 12.6 Hct 36.8 MCV 97 MCH 33.1 MCHC 34.2 RDW 12.5 Plt Count 266 Seg Neutrophils % Not Reportable Lymphocytes % Not Reportable Monocytes % Not Reportable Eosinophils % Not Reportable Basophils % Not Reportable Absolute Neutrophils Not Reportable Absolute Lymphocytes Not Reportable Absolute Monocytes Not Reportable Absolute Eosinophils Not Reportable Absolute Basophils Not Reportable Carbonic Acid 0.79 L HCO3/H2CO3 Ratio 22:1 ABG pH 7.46 H ABG pCO2 26.1 L ABG pO2 94.9 ABG HCO3 18.0 L ABG O2 Saturation 97.7 ABG Base Excess -4.2 FiO2 30% Sodium 140.6 Potassium 2.9 L* Chloride 110 H Carbon Dioxide 20 L Anion Gap 11 BUN 20 Creatinine 0.59 Est GFR ( Amer) > 60 Est GFR (Non-Af Amer) > 60 Glucose 172 H Calcium 9.4 Magnesium 2.1 11/15/17 11/15/17 11/16/17 10:12 10:12 09:29 Creatine Kinase 150 H 101 CK-MB (CK-2) 6.00 H Troponin I 0.787 11/16/17 11/16/17 11/16/17 09:29 15:30 15:30 Creatine Kinase 85 CK-MB (CK-2) 3.98 3.03 Troponin I 0.336 0.231 11/16/17 11/16/17 22:00 22:00 Creatine Kinase 70 CK-MB (CK-2) 2.67 Troponin I 0.184 Impressions: Chest X-Ray 11/20/17 06:00 IMPRESSION: 1. Improved aeration of the left lung base. Assessment & Plan - Diagnosis (1) Angioedema Qualifiers: Encounter type: initial encounter Qualified Code(s): T78.3XXA - Angioneurotic edema, initial encounter Is this a current diagnosis for this admission?: Yes Plan: plan is to extubate today and if successful and can start tapering steroids as well as H2 receptor blockers (2) Adverse reaction to NADEEM inhibitor drug Is this a current diagnosis for this admission?: Yes Plan: ensure to abstain from ACEI and Arbs may want to discuss with patient as to what actually preceded this event and the medications she is on (3) Acute respiratory failure Qualifiers: Respiratory failure complication: unspecified whether with hypoxia or hypercapnia Qualified Code(s): J96.00 - Acute respiratory failure, unspecified whether with hypoxia or hypercapnia Is this a current diagnosis for this admission?: Yes Plan: Continue mechanical ventilation and plan to extubate today (4) On mechanically assisted ventilation Is this a current diagnosis for this admission?: Yes (5) Elevated troponin I level Is this a current diagnosis for this admission?: Yes Plan: With abnormal EKG. Likely type II stress related demand ischemia Appreciate Cardiology input No acute interventions until stable (6) Hypokalemia Is this a current diagnosis for this admission?: Yes Plan: We will continue to replace Follow-up on labs in a.m. (7) Hypernatremia Is this a current diagnosis for this admission?: Yes Plan: Resolved.
[2017-11-20] MEDS: DEXTROSE 5%-1/2 NORMAL SALINE 1,000 ML IV PRN (18:40)
[2017-11-20] MEDS: ACETAMINOPHEN 325 MG TABLET PO PRN (21:47)
[2017-11-20] MEDS: ATORVASTATIN CALCIUM 80 MG TABLET PO SCH (21:47)
[2017-11-20] MEDS: METOPROLOL TARTRATE 25 MG TABLET PO SCH (21:48)
[2017-11-20] MEDS: HYDRALAZINE HCL 50 MG TABLET PO SCH (21:55)
[2017-11-21] MEDS: NITROGLYCERIN 2% OINTMENT 1 GM PACKET TP SCH ×4 (02:44→21:55)
[2017-11-21] MEDS: HYDRALAZINE HCL INJ/PF 20 MG/1 ML SDV IV PRN (03:56)
[2017-11-21 04:00] LABS: HEMATOCRIT 38.6 % (36.0-47.0); MEAN CORPUSCULAR HEMOGLOBIN 32.7 pg (27.0-33.4); MEAN CORPUSCULAR HGB CONC 33.7 g/dL (32.0-36.0); MEAN CORPUSCULAR VOLUME 97 fl (80-97); PLATELET COUNT 278 10^3/uL (150-450); RED BLOOD COUNT 3.98 10^6/uL (3.72-5.28); RED CELL DISTRIBUTION WIDTH 12.3 % (11.5-14.0); WHITE BLOOD COUNT 10.4 10^3/uL (4.0-10.5)
[2017-11-21 04:21] LABS: ALANINE AMINOTRANSFERASE 49 U/L (9-52); ALBUMIN 3.5 g/dL (3.5-5.0); ALKALINE PHOSPHATASE 74 U/L (38-126); ANION GAP 14 (5-19); ASPARTATE AMINO TRANSFERASE 86 U/L (14-36); BILIRUBIN,DIRECT 0.2 mg/dL (0.0-0.4); BILIRUBIN,TOTAL 0.4 mg/dL (0.2-1.3); BLOOD UREA NITROGEN 19 mg/dL (7-20); CARBON DIOXIDE 24 mmol/L (22-30); CHLORIDE 107 mmol/L (98-107); GLUCOSE 139 mg/dL (75-110); POTASSIUM 3.4 mmol/L (3.6-5.0); SODIUM 144.5 mmol/L (137-145); TOTAL PROTEIN 6.3 g/dL (6.3-8.2)
[2017-11-21 05:08] LABS: ARTERIAL BLOOD BASE EXCESS 0.2 mmol/L; ARTERIAL BLOOD H2CO3 0.82 mmol/L (1.05-1.35); ARTERIAL BLOOD HCO3 21.9 mmol/L (20-26); ARTERIAL BLOOD PCO2 27.4 mmHg (35-45); ARTERIAL BLOOD PH 7.52 (7.35-7.45); ARTERIAL BLOOD TOTAL CO2 22.8 mmol/L (21-25)
[2017-11-21 05:09] LABS: ARTERIAL BLOOD FIO2 ROOM AIR
[2017-11-21] MEDS: DIPHENHYDRAMINE HCL 50 MG/ML VIAL IV SCH (05:24)
[2017-11-21] MEDS: IMIPENEM/CILASTATIN SODIUM 500 MG in NORMAL SALINE 100 ML IV SCH ×4 (05:24→23:09)
[2017-11-21] MEDS: HYDRALAZINE HCL 50 MG TABLET PO SCH ×3 (05:25→21:55)
[2017-11-21] MEDS: METHYLPREDNISOLONE INJ 125 MG/2 ML SDV IV SCH (05:25)
[2017-11-21] MEDS: METOPROLOL TARTRATE 25 MG TABLET PO SCH ×3 (05:25→21:54)
[2017-11-21] MEDS: DEXTROSE 5%-1/2 NORMAL SALINE 1,000 ML IV PRN ×2 (05:28→08:28)
[2017-11-21] MEDS: ACETAMINOPHEN 325 MG TABLET PO PRN ×4 (05:46→21:54)
--- NOTE | 2017-11-21 06:40 | RADIOLOGY REPORT (SQ) ---
EXAM DESCRIPTION: CHEST SINGLE VIEW CLINICAL HISTORY: resp failure COMPARISON: 11/20/2017 FINDINGS: Single frontal view of the chest. Interval removal of endotracheal tube and NG tube. Tortuosity of the thoracic aorta. Cardiomediastinal silhouette is stable. Improved aeration the left lung base. No definite pneumothorax or pleural effusion. No acute osseous abnormalities. Upper abdominal soft tissues are unremarkable. IMPRESSION: 1. Interval removal of endotracheal tube and NG tube. Otherwise stable appearance of the chest. Electronically signed by: Sean Richardson 11/21/2017 5:38 AM
--- NOTE | 2017-11-21 09:01 | EKG REPORT ---
SEVERITY:- ABNORMAL ECG - SINUS RHYTHM PROBABLE LEFT ATRIAL ABNORMALITY BORDERLINE LEFT AXIS DEVIATION CONSIDER ANTERIOR INFARCT BORDERLINE PROLONGED QT INTERVAL : Confirmed by: Alejandro Jaramillo 21-Nov-2017 09:00:22
[2017-11-21] MEDS: ASPIRIN 81 MG TABLET, CHEWABLE PO SCH (09:31)
--- NOTE | 2017-11-21 09:36 | PDOC PROGRESS REPORT ---
Subjective Progress Note for:: 11/21/17 Subjective:: Patient awake and alert talkative with soft voice. Denies pain admits feeling much better, wants to eat and go home. No new nursing issues overnight. Reason For Visit: ANGIOEDEMA Physical Exam Vital Signs: Temp Pulse Resp BP Pulse Ox 98.4 F 73 17 130/72 H 94 11/21/17 07:45 11/21/17 07:45 11/21/17 07:45 11/21/17 07:45 11/21/17 07:45 Intake & Output 11/19/17 11/20/17 11/21/17 11:59 11:59 11:59 Intake Total 3234 3222 2938 Output Total 1870 1730 3120 Balance 1364 1492 -182 Weight 81.8 kg 85.8 kg 80 kg General appearance: PRESENT: no acute distress, well-developed, well-nourished Head exam: PRESENT: atraumatic, normocephalic Eye exam: PRESENT: conjunctiva pink, EOMI, PERRLA. ABSENT: scleral icterus Ear exam: PRESENT: normal external ear exam Mouth exam: PRESENT: moist, tongue midline Neck exam: ABSENT: carotid bruit, JVD, lymphadenopathy, thyromegaly Respiratory exam: PRESENT: clear to auscultation marcello. ABSENT: rales, rhonchi, wheezes Cardiovascular exam: PRESENT: RRR. ABSENT: diastolic murmur, rubs, systolic murmur Pulses: PRESENT: normal dorsalis pedis pul Vascular exam: PRESENT: normal capillary refill GI/Abdominal exam: PRESENT: normal bowel sounds, soft. ABSENT: distended, guarding, mass, organolmegaly, rebound, tenderness Rectal exam: PRESENT: deferred Extremities exam: PRESENT: full ROM. ABSENT: calf tenderness, clubbing, pedal edema Neurological exam: PRESENT: alert, awake, oriented to person, oriented to place , oriented to time, oriented to situation, CN II-XII grossly intact. ABSENT: motor sensory deficit Psychiatric exam: PRESENT: appropriate affect, normal mood. ABSENT: homicidal ideation, suicidal ideation Skin exam: PRESENT: dry, intact, warm. ABSENT: cyanosis, rash Results Laboratory Results: 11/21/17 03:47 11/21/17 03:47 11/21/17 11/21/17 11/21/17 03:47 03:47 05:00 WBC 10.4 RBC 3.98 Hgb 13.0 Hct 38.6 MCV 97 MCH 32.7 MCHC 33.7 RDW 12.3 Plt Count 278 Carbonic Acid 0.82 L HCO3/H2CO3 Ratio 26:1 ABG pH 7.52 H ABG pCO2 27.4 L ABG pO2 61.0 L ABG HCO3 21.9 ABG O2 Saturation 94.0 ABG Base Excess 0.2 FiO2 ROOM AIR Sodium 144.5 Potassium 3.4 L Chloride 107 Carbon Dioxide 24 Anion Gap 14 BUN 19 Creatinine 0.67 Est GFR ( Amer) > 60 Est GFR (Non-Af Amer) > 60 Glucose 139 H Calcium 10.0 Magnesium 2.3 Total Bilirubin 0.4 AST 86 H ALT 49 Alkaline Phosphatase 74 Total Protein 6.3 Albumin 3.5 11/15/17 11/15/17 11/16/17 10:12 10:12 09:29 Creatine Kinase 150 H 101 CK-MB (CK-2) 6.00 H Troponin I 0.787 11/16/17 11/16/17 11/16/17 09:29 15:30 15:30 Creatine Kinase 85 CK-MB (CK-2) 3.98 3.03 Troponin I 0.336 0.231 11/16/17 11/16/17 22:00 22:00 Creatine Kinase 70 CK-MB (CK-2) 2.67 Troponin I 0.184 Impressions: Chest X-Ray 11/21/17 06:00 IMPRESSION: 1. Interval removal of endotracheal tube and NG tube. Otherwise stable appearance of the chest. Assessment & Plan - Diagnosis (1) Acute respiratory failure Qualifiers: Respiratory failure complication: unspecified whether with hypoxia or hypercapnia Qualified Code(s): J96.00 - Acute respiratory failure, unspecified whether with hypoxia or hypercapnia Is this a current diagnosis for this admission?: Yes Plan: Secondary to angioedema from NADEEM inhibitor, patient extubated 24 hours ago tolerating without incident. Advance diet and resume p.o. medications (2) Adverse reaction to NADEEM inhibitor drug Is this a current diagnosis for this admission?: Yes Plan: NADEEM inhibitor documented as allergy (3) Angioedema Qualifiers: Encounter type: initial encounter Qualified Code(s): T78.3XXA - Angioneurotic edema, initial encounter Is this a current diagnosis for this admission?: Yes Plan: Resolved titrating Solu-Medrol and Pepcid to prednisone and Pepcid p.o. - Time Time Spent with patient: 15-24 minutes - Inpatient Certification Medical Necessity: Need Close Monitoring Due to Risk of Patient Decompensation
[2017-11-21] MEDS: ENOXAPARIN SODIUM INJ 40 MG/0.4 ML DISP.SYRIN SUBCUT SCH (09:37)
[2017-11-21] MEDS ORDERED: PREDNISONE 20 MG TABLET PO ONE (10:30)
[2017-11-21] MEDS ORDERED: FAMOTIDINE 20 MG TABLET PO ONE (10:30)
[2017-11-21] MEDS ORDERED: METHYLPREDNISOLONE INJ 125 MG/2 ML SDV IV SCH (12:00)
[2017-11-21] MEDS ORDERED: PREDNISONE 20 MG TABLET PO SCH (18:00)
--- NOTE | 2017-11-21 20:26 | PDOC PROGRESS REPORT ---
Subjective Progress Note for:: 11/21/17 Subjective:: Patient looks much improved. She has been extubated. Her tongue swelling has gone down. Currently still in the unit. Reason For Visit: ANGIOEDEMA Physical Exam Vital Signs: Temp Pulse Resp BP Pulse Ox 99.3 F 78 15 164/93 H 96 11/21/17 19:39 11/21/17 16:00 11/21/17 18:00 11/21/17 16:05 11/21/17 16:00 Intake & Output 11/20/17 11/21/17 11/22/17 06:59 06:59 06:59 Intake Total 3222 2524 1371 Output Total 1540 3000 1080 Balance 1682 -766 291 Weight 85.8 kg 80 kg Exam: GENERAL: well-nourished and in no acute distress. Alert and oriented x3 HEAD: Atraumatic, normocephalic. EYES: Pupils equal round and reactive to light, extraocular movements intact, sclera anicteric, conjunctiva are normal. ENT: TMs normal, nares patent, oropharynx clear without exudates. Moist mucous membranes. No oral ulcerations or bleeding gums noted NECK: supple without lymphadenopathy. Trachea is central. No cervical or axillary lymphadenopathy noted. Carotids are 2+, JVD WNL LUNGS: Respiration seems nonlabored, no significant accessory muscle action noted. Breath sounds clear to auscultation bilaterally and equal noted. No wheezes rales or rhonchi noted. No significant dullness noted on percussion. CHEST: Palpation of the chest wall shows no significant chest wall tenderness. No other significant abnormalities noted. 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 ABDOMEN: Soft, no significant tenderness appreciated, normoactive bowel sounds. No guarding, no rebound. No rigidity noted . No masses appreciated. EXTREMITIES: Pedal pulses are 1-2+, no calf tenderness noted. No clubbing or cyanosis.trace to 1+ pedal edema noted NEUROLOGICAL: Focused neurological exam showed no significant neurologic deficit. Normal speech, no focal weakness appreciated. PSYCH: Normal mood, normal affect. Judgment and insight within normal limits. SKIN: No significant ecchymosis, skin is noted to be warm. MUSCULOSKELETAL EXAM: No significant acute joint swelling noted. Results Laboratory Results: 11/21/17 03:47 11/21/17 03:47 11/21/17 11/21/17 11/21/17 03:47 03:47 05:00 WBC 10.4 RBC 3.98 Hgb 13.0 Hct 38.6 MCV 97 MCH 32.7 MCHC 33.7 RDW 12.3 Plt Count 278 Carbonic Acid 0.82 L HCO3/H2CO3 Ratio 26:1 ABG pH 7.52 H ABG pCO2 27.4 L ABG pO2 61.0 L ABG HCO3 21.9 ABG O2 Saturation 94.0 ABG Base Excess 0.2 FiO2 ROOM AIR Sodium 144.5 Potassium 3.4 L Chloride 107 Carbon Dioxide 24 Anion Gap 14 BUN 19 Creatinine 0.67 Est GFR ( Amer) > 60 Est GFR (Non-Af Amer) > 60 Glucose 139 H Calcium 10.0 Magnesium 2.3 Total Bilirubin 0.4 AST 86 H ALT 49 Alkaline Phosphatase 74 Total Protein 6.3 Albumin 3.5 11/15/17 11/15/17 11/16/17 10:12 10:12 09:29 Creatine Kinase 150 H 101 CK-MB (CK-2) 6.00 H Troponin I 0.787 11/16/17 11/16/17 11/16/17 09:29 15:30 15:30 Creatine Kinase 85 CK-MB (CK-2) 3.98 3.03 Troponin I 0.336 0.231 11/16/17 11/16/17 22:00 22:00 Creatine Kinase 70 CK-MB (CK-2) 2.67 Troponin I 0.184 Impressions: Chest X-Ray 11/21/17 06:00 IMPRESSION: 1. Interval removal of endotracheal tube and NG tube. Otherwise stable appearance of the chest. Assessment & Plan - Diagnosis (1) Elevated troponin I level Is this a current diagnosis for this admission?: Yes (2) Abnormal electrocardiogram Is this a current diagnosis for this admission?: Yes (3) Non-STEMI (non-ST elevated myocardial infarction) Is this a current diagnosis for this admission?: Yes (4) Acute respiratory failure Qualifiers: Respiratory failure complication: unspecified whether with hypoxia or hypercapnia Qualified Code(s): J96.00 - Acute respiratory failure, unspecified whether with hypoxia or hypercapnia Is this a current diagnosis for this admission?: Yes (5) Angioedema Qualifiers: Encounter type: initial encounter Qualified Code(s): T78.3XXA - Angioneurotic edema, initial encounter Is this a current diagnosis for this admission?: Yes - Notes Notes: Non-STEMI: Patient may have underlying CAD therefore supply demand mismatch may have caused [place]. Will discuss ischemia evaluation with a stress test prior to discharge. Did not get the opportunity to discuss this today. Elevated troponin I: Please see discussion above. Angioedema: Resolved currently on prednisone. Patient thinks that it may be something she ate. Hypertension: Currently stable. We are running out of options for antihypertensives. Patient has lisinopril listed as allergy as well as amlodipine. Currently tolerating beta-blockers satisfactorily. - Time Time with patient: 15-25 minutes - CODE STATUS was discussed, patient remains full code. Surrogate decision-maker unchanged. Multiple medical problems were addressed. More than 50% of the time spent coordinating care, discussing management plans with involved caregivers. Management plans discussed with involved personnels. Medical decision making was of moderate to high complexity , patient's has multiple comorbidities. Medications reviewed and adjusted accordingly: Yes
[2017-11-21] MEDS: ATORVASTATIN CALCIUM 80 MG TABLET PO SCH (21:53)
[2017-11-21] MEDS: FAMOTIDINE 20 MG TABLET PO SCH (21:54)
[2017-11-22] MEDS: ACETAMINOPHEN 325 MG TABLET PO PRN ×4 (04:03→21:55)
[2017-11-22] MEDS: NITROGLYCERIN 2% OINTMENT 1 GM PACKET TP SCH ×4 (04:10→21:55)
[2017-11-22] MEDS: METOPROLOL TARTRATE 25 MG TABLET PO SCH ×3 (06:08→21:55)
[2017-11-22] MEDS: HYDRALAZINE HCL 50 MG TABLET PO SCH ×3 (06:09→17:33)
[2017-11-22] MEDS: IMIPENEM/CILASTATIN SODIUM 500 MG in NORMAL SALINE 100 ML IV SCH (06:10)
[2017-11-22] MEDS ORDERED: PREDNISONE 20 MG TABLET PO SCH (09:48)
--- NOTE | 2017-11-22 09:53 | PDOC PROGRESS REPORT ---
Subjective Subjective:: Patient awake and alert talkative with soft voice but clearly improved from yesterday. Denies pain admits feeling much better, wants to eat and go home. No new nursing issues overnight. Patient is highly motivated to demonstrate physical ability she is is able to sit on the edge of the bed well-balanced however upon standing she falters stating her legs are weak and returns to bed. Reason For Visit: ANGIOEDEMA Physical Exam Vital Signs: Temp Pulse Resp BP Pulse Ox 98.8 F 68 12 165/92 H 98 11/22/17 08:00 11/22/17 08:00 11/22/17 08:00 11/22/17 08:00 11/22/17 08:00 Intake & Output 11/20/17 11/21/17 11/22/17 11:59 11:59 11:59 Intake Total 3222 2938 957 Output Total 1730 3320 2110 Balance 6752 382 1153 Weight 85.8 kg 80 kg 78.9 kg General appearance: PRESENT: no acute distress, well-developed, well-nourished Head exam: PRESENT: atraumatic, normocephalic Eye exam: PRESENT: conjunctiva pink, EOMI, PERRLA. ABSENT: scleral icterus Ear exam: PRESENT: normal external ear exam Mouth exam: PRESENT: moist, tongue midline Neck exam: ABSENT: carotid bruit, JVD, lymphadenopathy, thyromegaly Respiratory exam: PRESENT: clear to auscultation marcello. ABSENT: rales, rhonchi, wheezes Cardiovascular exam: PRESENT: RRR. ABSENT: diastolic murmur, rubs, systolic murmur Pulses: PRESENT: normal dorsalis pedis pul Vascular exam: PRESENT: normal capillary refill GI/Abdominal exam: PRESENT: normal bowel sounds, soft. ABSENT: distended, guarding, mass, organolmegaly, rebound, tenderness Rectal exam: PRESENT: deferred Extremities exam: PRESENT: full ROM. ABSENT: calf tenderness, clubbing, pedal edema Neurological exam: PRESENT: alert, awake, oriented to person, oriented to place , oriented to time, oriented to situation, CN II-XII grossly intact. ABSENT: motor sensory deficit Psychiatric exam: PRESENT: appropriate affect, normal mood. ABSENT: homicidal ideation, suicidal ideation Skin exam: PRESENT: dry, intact, warm. ABSENT: cyanosis, rash Results Laboratory Results: 11/21/17 03:47 11/21/17 03:47 11/15/17 11/15/17 11/16/17 10:12 10:12 09:29 Creatine Kinase 150 H 101 CK-MB (CK-2) 6.00 H Troponin I 0.787 11/16/17 11/16/17 11/16/17 09:29 15:30 15:30 Creatine Kinase 85 CK-MB (CK-2) 3.98 3.03 Troponin I 0.336 0.231 11/16/17 11/16/17 22:00 22:00 Creatine Kinase 70 CK-MB (CK-2) 2.67 Troponin I 0.184 Impressions: Chest X-Ray 11/21/17 06:00 IMPRESSION: 1. Interval removal of endotracheal tube and NG tube. Otherwise stable appearance of the chest. Assessment & Plan - Diagnosis (1) Acute respiratory failure Qualifiers: Respiratory failure complication: unspecified whether with hypoxia or hypercapnia Qualified Code(s): J96.00 - Acute respiratory failure, unspecified whether with hypoxia or hypercapnia Is this a current diagnosis for this admission?: Yes Plan: Secondary to angioedema from NADEEM inhibitor, patient extubated 24 hours ago tolerating without incident. Advance diet and resume p.o. medications. Resolved at baseline (2) Adverse reaction to NADEEM inhibitor drug Is this a current diagnosis for this admission?: Yes Plan: NADEEM inhibitor documented as allergy (3) Angioedema Qualifiers: Encounter type: initial encounter Qualified Code(s): T78.3XXA - Angioneurotic edema, initial encounter Is this a current diagnosis for this admission?: Yes Plan: Resolved titrating Solu-Medrol and Pepcid to prednisone and Pepcid p.o.. Prednisone titrated to 10 mg p.o. twice daily (4) Hypertension Is this a current diagnosis for this admission?: Yes Plan: Mild volume overload will challenge with Lasix 1 and increase hydralazine dose. (5) Debility Is this a current diagnosis for this admission?: Yes Plan: Physical therapy evaluation pending, out of bed to chair 3 times daily - Time Time Spent with patient: 15-24 minutes
[2017-11-22] MEDS: ENOXAPARIN SODIUM INJ 40 MG/0.4 ML DISP.SYRIN SUBCUT SCH (10:11)
[2017-11-22] MEDS: ASPIRIN 81 MG TABLET, CHEWABLE PO SCH (10:12)
[2017-11-22] MEDS: FAMOTIDINE 20 MG TABLET PO SCH ×2 (10:12→21:55)
[2017-11-22] MEDS ORDERED: PREDNISONE 10 MG TABLET PO ONE (10:30)
--- NOTE | 2017-11-22 13:31 | PDOC PROGRESS REPORT ---
Subjective Progress Note for:: 11/22/17 Subjective:: Patient looks much improved. Patient currently very weak and not able to ambulate well because of generalized weakness. Physical therapy consulted by hospitalist. We discussed positive troponin I release and also abnormal EKG on presentation with the patient. Discussed that underlying CAD cannot be entirely ruled out although because of enzyme release could well be explained by angioedema. Both patient and her fianc, in the room wants patient to have a stress test and this will be scheduled. Reason For Visit: ANGIOEDEMA Physical Exam Vital Signs: Temp Pulse Resp BP Pulse Ox 98.6 F 85 12 153/89 H 99 11/22/17 11:47 11/22/17 11:47 11/22/17 11:47 11/22/17 11:47 11/22/17 11:47 Intake & Output 11/21/17 11/22/17 11/23/17 06:59 06:59 06:59 Intake Total 2524 1371 Output Total 3000 2730 Balance -476 -1359 Weight 80 kg 78.9 kg Exam: GENERAL: well-nourished and in no acute distress. Alert and oriented x3 HEAD: Atraumatic, normocephalic. EYES: Pupils equal round and reactive to light, extraocular movements intact, sclera anicteric, conjunctiva are normal. ENT: TMs normal, nares patent, oropharynx clear without exudates. Moist mucous membranes. No oral ulcerations or bleeding gums noted NECK: supple without lymphadenopathy. Trachea is central. No cervical or axillary lymphadenopathy noted. Carotids are 2+, JVD WNL LUNGS: Respiration seems nonlabored, no significant accessory muscle action noted. Breath sounds clear to auscultation bilaterally and equal noted. No wheezes rales or rhonchi noted. No significant dullness noted on percussion. CHEST: Palpation of the chest wall shows no significant chest wall tenderness. No other significant abnormalities noted. HEART: [place] [employer], No PSH, 1/6 HIGINIO aortic area, 1/6 jaeger systolic murmur mitral area, no rubs, no gallops. ABDOMEN: Soft, no significant tenderness appreciated, normoactive bowel sounds. No guarding, no rebound. No rigidity noted . No masses appreciated. EXTREMITIES: Pedal pulses are 1-2+, no calf tenderness noted. No clubbing or cyanosis. Negative pedal edema noted NEUROLOGICAL: Focused neurological exam showed no significant neurologic deficit. Normal speech, no focal weakness appreciated. PSYCH: Normal mood, normal affect. Judgment and insight within normal limits. SKIN: No significant ecchymosis, skin is noted to be warm. MUSCULOSKELETAL EXAM: No significant acute joint swelling noted. Generalized weakness noted Results Laboratory Results: 11/21/17 03:47 11/21/17 03:47 11/15/17 11/15/17 11/16/17 10:12 10:12 09:29 Creatine Kinase 150 H 101 CK-MB (CK-2) 6.00 H Troponin I 0.787 11/16/17 11/16/17 11/16/17 09:29 15:30 15:30 Creatine Kinase 85 CK-MB (CK-2) 3.98 3.03 Troponin I 0.336 0.231 11/16/17 11/16/17 22:00 22:00 Creatine Kinase 70 CK-MB (CK-2) 2.67 Troponin I 0.184 EKG Comments: Telemetry shows sinus rhythm without any sustained tachycardia or bradycardia. Impressions: Chest X-Ray 11/21/17 06:00 IMPRESSION: 1. Interval removal of endotracheal tube and NG tube. Otherwise stable appearance of the chest. Assessment & Plan - Diagnosis (1) Elevated troponin I level Is this a current diagnosis for this admission?: Yes (2) Abnormal electrocardiogram Is this a current diagnosis for this admission?: Yes (3) Non-STEMI (non-ST elevated myocardial infarction) Is this a current diagnosis for this admission?: Yes (4) Acute respiratory failure Qualifiers: Respiratory failure complication: unspecified whether with hypoxia or hypercapnia Qualified Code(s): J96.00 - Acute respiratory failure, unspecified whether with hypoxia or hypercapnia Is this a current diagnosis for this admission?: Yes (5) Angioedema Qualifiers: Encounter type: initial encounter Qualified Code(s): T78.3XXA - Angioneurotic edema, initial encounter Is this a current diagnosis for this admission?: Yes - Notes Notes: Non-STEMI: Patient may have underlying CAD therefore supply demand mismatch may have caused WI. Discussed ischemia evaluation with the patient and her fianc. They would prefer to have the stress test done while inpatient. Nuclear stress test procedure orders were written. Procedure, risks benefits were discussed. Elevated troponin I: Please see discussion above. Angioedema: Resolved currently on prednisone. Patient thinks that it may be something she ate, however patient now tells me that it could have been lisinopril that she may have taken. Informed patient and her fianc that very careful review as to what exactly she took may need to be considered. Hypertension: Currently stable. We are running out of options for antihypertensives. Patient has lisinopril listed as allergy as well as amlodipine. Currently tolerating beta-blockers satisfactorily. Generalized weakness: Patient getting physical therapy now. - Time Time with patient: 15-25 minutes - CODE STATUS was discussed, patient remains full code. Surrogate decision-maker unchanged. Multiple medical problems were addressed. More than 50% of the time spent coordinating care, discussing management plans with involved caregivers. Management plans discussed with involved personnels. Medical decision making was of moderate to high complexity , patient's has multiple comorbidities. Medications reviewed and adjusted accordingly: Yes
[2017-11-22] MEDS: PREDNISONE 10 MG TABLET PO SCH (17:34)
[2017-11-22] MEDS: ATORVASTATIN CALCIUM 80 MG TABLET PO SCH (21:55)
[2017-11-23] MEDS: NITROGLYCERIN 2% OINTMENT 1 GM PACKET TP SCH ×2 (03:02→12:26)
[2017-11-23] MEDS: HYDRALAZINE HCL 50 MG TABLET PO SCH ×2 (03:19→12:24)
[2017-11-23] MEDS: METOPROLOL TARTRATE 25 MG TABLET PO SCH (05:09)
[2017-11-23] MEDS ORDERED: AMINOPHYLLINE INJ/PF 250 MG/10 ML SDV IV ONE (08:37)
[2017-11-23] MEDS ORDERED: REGADENOSON INJ 0.4 MG/5 ML DISP.SYRIN IV ONE (08:37)
[2017-11-23] MEDS: PREDNISONE 10 MG TABLET PO SCH (12:23)
[2017-11-23] MEDS: FAMOTIDINE 20 MG TABLET PO SCH (12:24)
[2017-11-23] MEDS: ASPIRIN 81 MG TABLET, CHEWABLE PO SCH (12:24)
[2017-11-23] MEDS: ENOXAPARIN SODIUM INJ 40 MG/0.4 ML DISP.SYRIN SUBCUT SCH (12:26)
--- NOTE | 2017-11-23 13:44 | DRAGON STRESS TEST REPORT ---
INTRAVENOUS LEXISCAN CARDIOLITE STRESS TEST USING SINGLE PHOTON EMMISION COMPUTERIZED TOMOGRAPHIC. DATE OF PROCEDURE: November 23, 2017, INDICATION : Non-STEMI CARDIAC RISK FACTORS: Hypertension RESTING EKG: Sinus rhythm with nonspecific T-wave inversion inferior and lateral chest leads STRESS EKG: No significant ST segment changes noted with LexiScan bolus REASON FOR TERMINATION: Protocol. PROCEDURE REPORT: Baseline heart rate 102 beats per minute with blood pressure of 136/85. Patient had no significant complaints. Patient was bolused with Lexiscan 0.4 mg intravenously followed by saline bolus. Heart rate at 2 minutes post bolus 123 with a blood pressure of 133/83. 3 minutes post bolus heart rate 122 with blood pressure of 133/82. No significant EKG changes were noted. Patient had no significant complaints during the procedure or postprocedure. Patient injected with Aminophyllin 75 mg at 3 minutes or later after Lexiscan bolus. CONCLUSIONS: Normal EKG and hemodynamic response to IV LexiScan. NUCLEAR DATA: At rest the patient was given 11.61 millicuries of technetium 99 sestamibi injected intravenously. As per protocol rest gated SPECT images were obtained. On day of stress test, the patient was given intravenous LexiScan at a dose of 0.4 mg in 5 mL intravenously, followed by flush with normal saline. Subsequently the stress dose of 34.1 millicuries of technetium 99 sestamibi was injected intravenously. As per protocol stress gated images were obtained. NUCLEAR INTERPRETATION: Both raw and processed data were used for interpretation. Visual, qualitative, computer-generated quantitative data was used. There was good myocardial uptake of technetium compound. Motion artifact and soft tissue attenuations were noted. Increased visceral uptake was noted. A small area of transient perfusion defect noted in the mid lateral wall consistent with mild ischemia, No definitive areas of fixed perfusion defect or scars noted. EKG gated imaging showed LV EF at 52 %, rest and stress gated EF similar visually. T. I D. ratio was 0.84. Lung heart ratio noted to be within normal limits 0.28. No significant extracardiac and abnormal radiotracer activities were noted. RV free wall uptake was noted to be WNL. IMPRESSION: Also refer to comments under nuclear interpretation. Also test results needs to be interpreted in the context of pretest probability. 1. A small area of transient perfusion defect noted in the mid lateral wall consistent with mild ischemia. 2. There is no definitive scintigraphic evidence of myocardial infarction/scar. 3. EKG gated imaging shows left ventricular ejection fraction of approx. 52 %. 4. Clinical correlation requested as worse disease or balanced ischemia could be missed. In approximately 10% of the cases Lexiscan may not cause adequate vasodilatory stress. RECOMMENDATIONS: Aggressive risk factor modification and medical management. Further evaluation may be needed if continued symptoms or other high risk indicators are noted on clinical evaluation. Close cardiology follow-up is also recommended. Clinical correlation with echocardiogram derived ejection fraction. Inability to exercise by itself can lead to increased cardiovascular event risks. Consider cardiology consultation and or follow-up if clinically indicated. I am available for cardiology evaluation and consultation if requested by the oracle software engineer, unless patient already has a md pediatric allergist. ARDEN
[2017-11-23 14:33] VITALS: BP 144/97
--- NOTE | 2017-11-23 20:00 | PDOC PROGRESS REPORT ---
Subjective Progress Note for:: 11/23/17 Subjective:: Patient looks much improved. Patient has worked with physical therapy and is planning to be discharged. Patient did undergo a stress test for evaluation into non-STEMI and positive troponin I. Patient denies any other specific complaints. Reason For Visit: ANGIOEDEMA Physical Exam Vital Signs: Temp Pulse Resp BP Pulse Ox 98.9 F 101 H 18 144/97 H 99 11/23/17 14:30 11/23/17 14:30 11/23/17 14:30 11/23/17 14:30 11/23/17 14:30 Intake & Output 11/22/17 11/23/17 11/24/17 06:59 06:59 06:59 Intake Total 1371 663 Output Total 2730 1350 Balance -1359 -687 Weight 78.9 kg 80.2 kg Exam: GENERAL: well-nourished and in no acute distress. Alert and oriented x3 HEAD: Atraumatic, normocephalic. EYES: Pupils equal round and reactive to light, extraocular movements intact, sclera anicteric, conjunctiva are normal. ENT: TMs normal, nares patent, oropharynx clear without exudates. Moist mucous membranes. No oral ulcerations or bleeding gums noted NECK: supple without lymphadenopathy. Trachea is central. No cervical or axillary lymphadenopathy noted. Carotids are 2+, JVD WNL LUNGS: Respiration seems nonlabored, no significant accessory muscle action noted. Breath sounds clear to auscultation bilaterally and equal noted. No wheezes rales or rhonchi noted. No significant dullness noted on percussion. CHEST: Palpation of the chest wall shows no significant chest wall tenderness. No other significant abnormalities noted. 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 ABDOMEN: Soft, no significant tenderness appreciated, normoactive bowel sounds. No guarding, no rebound. No rigidity noted . No masses appreciated. EXTREMITIES: Pedal pulses are 1-2+, no calf tenderness noted. No clubbing or cyanosis.trace pedal edema noted NEUROLOGICAL: Focused neurological exam showed no significant neurologic deficit. Normal speech, no focal weakness appreciated. PSYCH: Normal mood, normal affect. Judgment and insight within normal limits. SKIN: No significant ecchymosis, skin is noted to be warm. MUSCULOSKELETAL EXAM: No significant acute joint swelling noted. Results Laboratory Results: 11/21/17 03:47 11/21/17 03:47 11/15/17 11/15/17 11/16/17 10:12 10:12 09:29 Creatine Kinase 150 H 101 CK-MB (CK-2) 6.00 H Troponin I 0.787 11/16/17 11/16/17 11/16/17 09:29 15:30 15:30 Creatine Kinase 85 CK-MB (CK-2) 3.98 3.03 Troponin I 0.336 0.231 11/16/17 11/16/17 22:00 22:00 Creatine Kinase 70 CK-MB (CK-2) 2.67 Troponin I 0.184 EKG Comments: Telemetry shows sinus rhythm. No sustained tachycardia or bradycardia is noted Impressions: Chest X-Ray 11/21/17 06:00 IMPRESSION: 1. Interval removal of endotracheal tube and NG tube. Otherwise stable appearance of the chest. Assessment & Plan - Diagnosis (1) Elevated troponin I level Is this a current diagnosis for this admission?: Yes (2) Abnormal electrocardiogram Is this a current diagnosis for this admission?: Yes (3) Non-STEMI (non-ST elevated myocardial infarction) Is this a current diagnosis for this admission?: Yes (4) Acute respiratory failure Qualifiers: Respiratory failure complication: unspecified whether with hypoxia or hypercapnia Qualified Code(s): J96.00 - Acute respiratory failure, unspecified whether with hypoxia or hypercapnia Is this a current diagnosis for this admission?: Yes (5) Angioedema Qualifiers: Encounter type: initial encounter Qualified Code(s): T78.3XXA - Angioneurotic edema, initial encounter Is this a current diagnosis for this admission?: Yes - Notes Notes: Non-STEMI: This was evaluated with a nuclear stress test which shows mild ischemia in the distal lateral wall. Patient currently doing well on medical management. Will continue with this. Patient can follow-up with me as an outpatient. Elevated troponin I: Please see discussion above. Angioedema: Exact etiology not clear but it seems like patient may have been still taking lisinopril prior to admission to the emergency room. Of course this was stopped once patient was admitted. Hypertension: Currently stable. Currently tolerating beta-blockers satisfactorily. Generalized weakness: Patient encouraged to walk on a regular basis. Patient given my card. She can follow-up with me if she wishes. - Time Time with patient: 15-25 minutes - CODE STATUS was discussed, patient remains full code. Surrogate decision-maker unchanged. Multiple medical problems were addressed. More than 50% of the time spent coordinating care, discussing management plans with involved caregivers. Management plans discussed with involved personnels. Medical decision making was of moderate to high complexity , patient's has multiple comorbidities. Medications reviewed and adjusted accordingly: Yes
--- NOTE | 2017-11-24 11:21 | PDOC PROGRESS REPORT ---
Subjective Progress Note for:: 11/19/17 Subjective:: Patient was seen yesterday in consultation. A provider note was entered. A full consultation was dictated earlier today. Patient remains intubated and sedated. Her tongue and upper airways still very swollen. No plans for extubation at this time. Lisinopril and amlodipine has been added to the allergy. Reason For Visit: ANGIOEDEMA Physical Exam Vital Signs: Temp Pulse Resp BP Pulse Ox 98.2 F 77 17 183/113 H 95 11/19/17 10:00 11/19/17 10:00 11/19/17 10:00 11/19/17 10:00 11/19/17 10:00 Intake & Output 11/18/17 11/19/17 11/20/17 06:59 06:59 06:59 Intake Total 3027 3234 Output Total 3625 2220 110 Balance -598 1014 -110 Weight 80.7 kg 81.8 kg Exam: GENERAL: well-nourished and in no acute distress. Patient is intubated and sedated. Orientation cannot be checked HEAD: Atraumatic, normocephalic. EYES: Pupils equal round and reactive to light, extraocular movements could not be checked, sclera anicteric, conjunctiva are normal. ENT: TMs normal, nares patent, oropharynx clear without exudates. Moist mucous membranes. No oral ulcerations or bleeding gums noted NECK: supple without lymphadenopathy or JVD. Trachea is central. No cervical or axillary lymphadenopathy noted. Carotids are 2+ LUNGS: Breath sounds mostly clear to auscultation patient is noted to have bibasal crackles at the extreme bases CHEST: Palpation of the chest wall shows no significant chest wall tenderness or abnormalities. 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 ABDOMEN: Soft, no significant tenderness appreciated, normoactive bowel sounds. No guarding, no rebound. No rigidity noted . No masses appreciated. EXTREMITIES: Pedal pulses are 1-2+, no calf tenderness noted, 1+ pedal edema noted. No clubbing or cyanosis. NEUROLOGICAL: The patient cannot participate in the neurological exam but no facial asymmetry noted. Extremities slightly hypotonic PSYCH: This cannot be evaluated. Patient cannot participate. SKIN: No significant ecchymosis, rash, or signs of pruritus noted. MUSCULOSKELETAL EXAM: No significant joint swelling noted. Patient cannot participate in musculoskeletal exam Results Laboratory Results: 11/19/17 04:12 11/19/17 04:12 11/19/17 11/19/17 11/19/17 04:12 04:12 06:00 WBC 8.1 RBC 3.72 Hgb 12.3 Hct 36.2 MCV 98 H MCH 33.1 MCHC 34.0 RDW 12.4 Plt Count 249 Seg Neutrophils % Not Reportable Lymphocytes % Not Reportable Monocytes % Not Reportable Eosinophils % Not Reportable Basophils % Not Reportable Absolute Neutrophils Not Reportable Absolute Lymphocytes Not Reportable Absolute Monocytes Not Reportable Absolute Eosinophils Not Reportable Absolute Basophils Not Reportable Carbonic Acid 0.93 L HCO3/H2CO3 Ratio 23:1 ABG pH 7.48 H ABG pCO2 30.8 L ABG pO2 87.6 ABG HCO3 22.3 ABG O2 Saturation 97.3 ABG Base Excess -0.4 FiO2 30% Sodium 143.6 Potassium 3.2 L Chloride 110 H Carbon Dioxide 22 Anion Gap 12 BUN 14 Creatinine 0.60 Est GFR ( Amer) > 60 Est GFR (Non-Af Amer) > 60 Glucose 133 H Calcium 9.7 Phosphorus 4.1 Magnesium 1.8 Total Bilirubin 0.3 AST 33 ALT 30 Alkaline Phosphatase 67 Total Protein 6.0 L Albumin 3.2 L 11/16/17 10:30 Tracheal Aspirate Gram Stain - Final 11/16/17 10:30 Tracheal Aspirate Sputum Culture - Final Serratia Marcescens Normal Maile Absent 11/16/17 10:30 Stokes Catheter Urine Culture - Final Staph Coagulase Negative Viridans Streptococcus 11/15/17 11/15/17 11/16/17 10:12 10:12 09:29 Creatine Kinase 150 H 101 CK-MB (CK-2) 6.00 H Troponin I 0.787 11/16/17 11/16/17 11/16/17 09:29 15:30 15:30 Creatine Kinase 85 CK-MB (CK-2) 3.98 3.03 Troponin I 0.336 0.231 11/16/17 11/16/17 22:00 22:00 Creatine Kinase 70 CK-MB (CK-2) 2.67 Troponin I 0.184 Impressions: Chest X-Ray 03/19/18 06:00 IMPRESSION: Interval worsening includes moderate opacity-layered effusion of the left lung base. Assessment & Plan - Diagnosis (1) Elevated troponin I level Is this a current diagnosis for this admission?: Yes (2) Abnormal electrocardiogram Is this a current diagnosis for this admission?: Yes (3) Non-STEMI (non-ST elevated myocardial infarction) Is this a current diagnosis for this admission?: Yes (4) Acute respiratory failure Qualifiers: Respiratory failure complication: unspecified whether with hypoxia or hypercapnia Qualified Code(s): J96.00 - Acute respiratory failure, unspecified whether with hypoxia or hypercapnia Is this a current diagnosis for this admission?: Yes (5) Angioedema Qualifiers: Encounter type: initial encounter Qualified Code(s): T78.3XXA - Angioneurotic edema, initial encounter Is this a current diagnosis for this admission?: Yes - Notes Notes: 2D echocardiogram results reviewed. Telemetry strips reviewed. EKG is reviewed. No new changes made. Recommend beta-codie to the regimen for blood pressure control. Elevated troponin I: Most likely related to non-STEMI brought on by supply demand mismatch but could well be also from intense vasoconstriction from medications used to treat angioedema. Patient will benefit from ischemia workup once she is more stable. Abnormal electrocardiogram: Patient has diffuse T-wave inversion consistent with ischemia. Treat with aspirin, statins, beta-blockers, unfortunately NADEEM inhibitor and angiotensin receptor blockers are contraindicated. Non-STEMI: Most likely brought on by supply demand mismatch and possibly intense vasoconstriction from medications used to treat angioedema. Acute respiratory failure: Mostly from angioedema with upper respiratory tract obstruction. Angioedema: Patient may need further evaluation into idiopathic angioedema and other causes of angioedema since it was claimed that patient did not take lisinopril. May consider rheumatology evaluation and consultation. - Time Time with patient: 15-25 minutes - CODE STATUS was discussed, patient remains full code. Surrogate decision-maker unchanged. Multiple medical problems were addressed. More than 50% of the time spent coordinating care, discussing management plans with involved caregivers. Management plans discussed with involved personnels. Medical decision making was of moderate to high complexity , patient's has multiple comorbidities. Medications reviewed and adjusted accordingly: Yes
--- NOTE | 2017-11-24 11:25 | PDOC PROGRESS REPORT ---
Subjective Progress Note for:: 11/20/17 Subjective:: No change in patient condition. Chest x-ray results reviewed. It showed improved aeration left base. EKGs reviewed. 2D echo. Patient remains intubated and sedated. Her tongue and upper airways still very swollen. No plans for extubation at this time. Reason For Visit: ANGIOEDEMA Physical Exam Vital Signs: Temp Pulse Resp BP Pulse Ox 98.8 F 81 20 173/108 H 94 11/20/17 19:39 11/20/17 10:55 11/20/17 19:02 11/20/17 19:02 11/20/17 19:02 Intake & Output 11/19/17 11/20/17 11/21/17 06:59 06:59 06:59 Intake Total 3234 3222 1433 Output Total 2220 1540 1250 Balance 1014 1682 183 Weight 81.8 kg 85.8 kg Exam: GENERAL: well-nourished and in no acute distress. Patient is intubated and sedated. Orientation cannot be checked HEAD: Atraumatic, normocephalic. EYES: Pupils equal round and reactive to light, extraocular movements could not be checked, sclera anicteric, conjunctiva are normal. ENT: TMs normal, nares patent, oropharynx clear without exudates. Moist mucous membranes. No oral ulcerations or bleeding gums noted NECK: supple without lymphadenopathy or JVD. Trachea is central. No cervical or axillary lymphadenopathy noted. Carotids are 2+ LUNGS: Breath sounds mostly clear to auscultation patient is noted to have bibasal crackles at the extreme bases CHEST: Palpation of the chest wall shows no significant chest wall tenderness or abnormalities. HEART: [place] [employer]ER, No PSH, 2/6 HIGINIO aortic area, 1/6 jaeger systolic murmur mitral area , no rubs or gallops. ABDOMEN: Soft, no significant tenderness appreciated, normoactive bowel sounds. No guarding, no rebound. No rigidity noted . No masses appreciated. EXTREMITIES: Pedal pulses are 1-2+, no calf tenderness noted, 1+ pedal edema noted. No clubbing or cyanosis. NEUROLOGICAL: The patient cannot participate in the neurological exam but no facial asymmetry noted. Extremities slightly hypotonic PSYCH: This cannot be evaluated. Patient cannot participate. SKIN: No significant ecchymosis, rash, or signs of pruritus noted. MUSCULOSKELETAL EXAM: No significant joint swelling noted. Patient cannot participate in musculoskeletal exam Results Laboratory Results: 11/20/17 05:35 11/20/17 05:35 11/20/17 11/20/17 11/20/17 04:10 05:35 05:35 WBC 8.6 RBC 3.81 Hgb 12.6 Hct 36.8 MCV 97 MCH 33.1 MCHC 34.2 RDW 12.5 Plt Count 266 Seg Neutrophils % Not Reportable Lymphocytes % Not Reportable Monocytes % Not Reportable Eosinophils % Not Reportable Basophils % Not Reportable Absolute Neutrophils Not Reportable Absolute Lymphocytes Not Reportable Absolute Monocytes Not Reportable Absolute Eosinophils Not Reportable Absolute Basophils Not Reportable Carbonic Acid 0.79 L HCO3/H2CO3 Ratio 22:1 ABG pH 7.46 H ABG pCO2 26.1 L ABG pO2 94.9 ABG HCO3 18.0 L ABG O2 Saturation 97.7 ABG Base Excess -4.2 FiO2 30% Sodium 140.6 Potassium 2.9 L* Chloride 110 H Carbon Dioxide 20 L Anion Gap 11 BUN 20 Creatinine 0.59 Est GFR ( Amer) > 60 Est GFR (Non-Af Amer) > 60 Glucose 172 H Calcium 9.4 Magnesium 2.1 11/15/17 11/15/17 11/16/17 10:12 10:12 09:29 Creatine Kinase 150 H 101 CK-MB (CK-2) 6.00 H Troponin I 0.787 11/16/17 11/16/17 11/16/17 09:29 15:30 15:30 Creatine Kinase 85 CK-MB (CK-2) 3.98 3.03 Troponin I 0.336 0.231 11/16/17 11/16/17 22:00 22:00 Creatine Kinase 70 CK-MB (CK-2) 2.67 Troponin I 0.184 EKG Comments: Telemetry strips shows sinus rhythm without any sustained tachycardia or bradycardia. Impressions: Chest X-Ray 11/20/17 06:00 IMPRESSION: 1. Improved aeration of the left lung base. Assessment & Plan - Diagnosis (1) Elevated troponin I level Is this a current diagnosis for this admission?: Yes (2) Abnormal electrocardiogram Is this a current diagnosis for this admission?: Yes (3) Non-STEMI (non-ST elevated myocardial infarction) Is this a current diagnosis for this admission?: Yes (4) Acute respiratory failure Qualifiers: Respiratory failure complication: unspecified whether with hypoxia or hypercapnia Qualified Code(s): J96.00 - Acute respiratory failure, unspecified whether with hypoxia or hypercapnia Is this a current diagnosis for this admission?: Yes (5) Angioedema Qualifiers: Encounter type: initial encounter Qualified Code(s): T78.3XXA - Angioneurotic edema, initial encounter Is this a current diagnosis for this admission?: Yes - Notes Notes: Awaiting for patient to be extubated when further evaluation as regards because of angioedema and abnormal EKG can be performed. Currently patient's cardiac monitoring shows no significant cardiac dysrhythmias. Blood pressure now satisfactorily controlled. Continue current antihypertensives. Elevated troponin I: Most likely related to non-STEMI brought on by supply demand mismatch but could well be also from intense vasoconstriction from medications used to treat angioedema. Patient will benefit from ischemia workup once she is more stable. Abnormal electrocardiogram: Patient has diffuse T-wave inversion consistent with ischemia. Treat with aspirin, statins, beta-blockers, unfortunately NADEEM inhibitor and angiotensin receptor blockers are contraindicated. Non-STEMI: Most likely brought on by supply demand mismatch and possibly intense vasoconstriction from medications used to treat angioedema. Acute respiratory failure: Mostly from angioedema with upper respiratory tract obstruction. Angioedema: Patient may need further evaluation into idiopathic angioedema and other causes of angioedema since it was claimed that patient did not take lisinopril. May consider rheumatology evaluation and consultation. - Time Time with patient: 15-25 minutes - CODE STATUS was discussed, patient remains full code. Surrogate decision-maker unchanged. Multiple medical problems were addressed. More than 50% of the time spent coordinating care, discussing management plans with involved caregivers. Management plans discussed with involved personnels. Medical decision making was of moderate to high complexity , patient's has multiple comorbidities. Medications reviewed and adjusted accordingly: Yes
--- NOTE | 2017-11-25 17:42 | PDOC PROGRESS REPORT ---
Subjective Progress Note for:: 11/21/17 Subjective:: AWAKE MORE RESPONSIVE Reason For Visit: ANGIOEDEMA Physical Exam Vital Signs: Temp Pulse Resp BP Pulse Ox 98.9 F 101 H 18 144/97 H 99 11/23/17 14:30 11/23/17 14:30 11/23/17 14:30 11/23/17 14:30 11/23/17 14:30 General appearance: PRESENT: no acute distress, cooperative, well-developed Head exam: PRESENT: atraumatic, normocephalic Eye exam: PRESENT: conjunctiva pale, EOMI Mouth exam: PRESENT: moist, neck supple, tongue midline Neck exam: ABSENT: carotid bruit, JVD, lymphadenopathy, thyromegaly, tracheal deviation, tracheostomy Respiratory exam: PRESENT: decreased breath sounds, prolonged expiratory phas, rhonchi, symmetrical, unlabored. ABSENT: retraction, stridor, tachypnea Cardiovascular exam: PRESENT: RRR, +S1 Pulses: PRESENT: normal radial pulses GI/Abdominal exam: PRESENT: diminished bowel sounds, soft Extremities exam: ABSENT: clubbing, joint swelling Musculoskeletal exam: ABSENT: deformity, dislocation Neurological exam: PRESENT: awake Skin exam: PRESENT: dry, warm Results Laboratory Results: 11/21/17 03:47 11/21/17 03:47 11/15/17 11/15/17 11/16/17 10:12 10:12 09:29 Creatine Kinase 150 H 101 CK-MB (CK-2) 6.00 H Troponin I 0.787 11/16/17 11/16/17 11/16/17 09:29 15:30 15:30 Creatine Kinase 85 CK-MB (CK-2) 3.98 3.03 Troponin I 0.336 0.231 11/16/17 11/16/17 22:00 22:00 Creatine Kinase 70 CK-MB (CK-2) 2.67 Troponin I 0.184 Impressions: Chest X-Ray 11/21/17 06:00 IMPRESSION: 1. Interval removal of endotracheal tube and NG tube. Otherwise stable appearance of the chest. Assessment & Plan - Diagnosis (1) Acute respiratory failure Qualifiers: Respiratory failure complication: unspecified whether with hypoxia or hypercapnia Qualified Code(s): J96.00 - Acute respiratory failure, unspecified whether with hypoxia or hypercapnia Is this a current diagnosis for this admission?: Yes Plan: STABLE S/P extubation (2) Angioedema Qualifiers: Encounter type: initial encounter Qualified Code(s): T78.3XXA - Angioneurotic edema, initial encounter Is this a current diagnosis for this admission?: Yes Plan: Improving
--- NOTE | 2017-11-25 17:45 | PDOC PROGRESS REPORT ---
Subjective Progress Note for:: 11/22/17 Subjective:: CONTINUES TO IMPROVE Reason For Visit: ANGIOEDEMA Physical Exam Vital Signs: Temp Pulse Resp BP Pulse Ox 98.9 F 101 H 18 144/97 H 99 11/23/17 14:30 11/23/17 14:30 11/23/17 14:30 11/23/17 14:30 11/23/17 14:30 General appearance: PRESENT: no acute distress, cooperative, disheveled Head exam: PRESENT: atraumatic, normocephalic Eye exam: PRESENT: conjunctiva pale, EOMI Mouth exam: PRESENT: moist, neck supple, tongue midline Neck exam: ABSENT: carotid bruit, JVD, lymphadenopathy, thyromegaly, tracheal deviation, tracheostomy Respiratory exam: PRESENT: decreased breath sounds, prolonged expiratory phas, rhonchi, symmetrical, unlabored. ABSENT: rales, retraction, stridor, tachypnea Cardiovascular exam: PRESENT: RRR, +S1, +S2 Pulses: PRESENT: normal radial pulses GI/Abdominal exam: PRESENT: diminished bowel sounds, soft Musculoskeletal exam: ABSENT: deformity, dislocation Neurological exam: PRESENT: awake Skin exam: PRESENT: dry, warm Results Laboratory Results: 11/21/17 03:47 11/21/17 03:47 11/15/17 11/15/17 11/16/17 10:12 10:12 09:29 Creatine Kinase 150 H 101 CK-MB (CK-2) 6.00 H Troponin I 0.787 11/16/17 11/16/17 11/16/17 09:29 15:30 15:30 Creatine Kinase 85 CK-MB (CK-2) 3.98 3.03 Troponin I 0.336 0.231 11/16/17 11/16/17 22:00 22:00 Creatine Kinase 70 CK-MB (CK-2) 2.67 Troponin I 0.184 Impressions: Chest X-Ray 11/21/17 06:00 IMPRESSION: 1. Interval removal of endotracheal tube and NG tube. Otherwise stable appearance of the chest. Assessment & Plan - Diagnosis (1) Acute respiratory failure Qualifiers: Respiratory failure complication: unspecified whether with hypoxia or hypercapnia Qualified Code(s): J96.00 - Acute respiratory failure, unspecified whether with hypoxia or hypercapnia Is this a current diagnosis for this admission?: Yes Plan: STABLE (2) Angioedema Qualifiers: Encounter type: initial encounter Qualified Code(s): T78.3XXA - Angioneurotic edema, initial encounter Is this a current diagnosis for this admission?: Yes Plan: Improving
--- NOTE | 2017-12-07 14:19 | PDOC DISCHARGE SUMMARY ---
General - Admit/Disc Date/PCP Admission Date/Primary Care Provider: 11/14/17 11:00 Discharge Date: 11/23/17 - Discharge Diagnosis (1) Adverse reaction to NADEEM inhibitor drug Is this a current diagnosis for this admission?: Yes (2) Angioedema Is this a current diagnosis for this admission?: Yes (3) Debility Is this a current diagnosis for this admission?: Yes (4) Hypernatremia Is this a current diagnosis for this admission?: Yes (5) Hypertension Is this a current diagnosis for this admission?: Yes - Additional Information Resuscitation Status: Full Code Discharge Diet: Cardiac Discharge Activity: Activity As Tolerated Prescriptions: Atorvastatin Calcium [Lipitor 80 mg Tablet] 80 mg PO QHS 30 Days #30 tablet Hydralazine HCl [Apresoline 50 mg Tablet] 100 mg PO Q8A 30 Days #180 tablet Isosorbide Dinitrate [Isordil Titradose 20 mg Tablet] 20 mg PO TID 30 Days #90 tablet Metoprolol Tartrate [Lopressor 25 mg Tablet] 50 mg PO Q12 30 Days #120 tablet Home Medications: Aspirin [Aspirin EC] 81 mg PO DAILY 07/15/17 Cetirizine HCl [Zyrtec 10 mg Tablet] 10 mg PO DAILY 07/15/17 Multivitamin [Tab-A-Juvencio] 1 tab PO DAILY 07/16/17 Linaclotide [Linzess] 1 tab PO DAILY 11/01/17 Amitriptyline HCl [Elavil 50 mg Tablet] 50 mg PO DAILY 11/14/17 Olopatadine HCl [Pazeo] 1 drop OU DAILY 11/14/17 Pantoprazole Sodium [Protonix] 40 mg PO DAILY 11/14/17 Atorvastatin Calcium [Lipitor 80 mg Tablet] 80 mg PO QHS 30 Days #30 tablet Hydralazine HCl [Apresoline 50 mg Tablet] 100 mg PO Q8A 30 Days #180 tablet Isosorbide Dinitrate [Isordil Titradose 20 mg Tablet] 20 mg PO TID 30 Days #90 tablet 11/23/17 Metoprolol Tartrate [Lopressor 25 mg Tablet] 50 mg PO Q12 30 Days #120 tablet History of Present Illness History of Present Illness: KALIN MARK is a 67 year old female Patient presents to the emergency room with complaints of tongue swelling and difficulty breathing. She was noted to have the same symptoms apparently about a week prior to admission. At that time, she was advised to stop lisinopril. She apparently claims not to have used lisinopril since then but presented with recurrent tongue swelling and difficulty breathing. Please note this information is obtained solely from the chart as patient was intubated at the time of admission. Hospital Course Hospital Course: She was admitted to the ICU. She remained intubated until 11/21. During this time she was treated with steroids and H2RA. Her hospital stay was complicated by a NSTEMI for cardiology was consulted. LVEF was normal. She had mild - moderate diastolic dysfunction. Because her hospitalization was long she needed PT due to deconditioning. Physical Exam Vital Signs: Temp Pulse Resp BP Pulse Ox 98.9 F 124 H 18 142/90 H 99 11/23/17 11:12 11/23/17 11:12 11/23/17 11:12 11/23/17 11:12 11/23/17 11:12 Intake & Output 11/22/17 11/23/17 11/24/17 06:59 06:59 06:59 Intake Total 1371 663 Output Total 2730 1350 Balance -1359 -687 Weight 78.9 kg 80.2 kg General appearance: PRESENT: no acute distress, well-developed, well-nourished Head exam: PRESENT: normocephalic Eye exam: PRESENT: EOMI, PERRLA Respiratory exam: PRESENT: clear to auscultation marcello. ABSENT: rales, rhonchi, wheezes Cardiovascular exam: PRESENT: RRR. ABSENT: diastolic murmur, rubs, systolic murmur GI/Abdominal exam: PRESENT: normal bowel sounds, soft. ABSENT: distended, guarding, mass, organolmegaly, rebound, tenderness Musculoskeletal exam: PRESENT: ambulatory Neurological exam: PRESENT: alert, awake, oriented to person, oriented to place , oriented to time, oriented to situation, CN II-XII grossly intact. ABSENT: motor sensory deficit Skin exam: PRESENT: dry, intact, warm. ABSENT: cyanosis, rash Results Laboratory Results: 11/21/17 03:47 11/21/17 03:47 11/15/17 11/15/17 11/16/17 10:12 10:12 09:29 Creatine Kinase 150 H 101 CK-MB (CK-2) 6.00 H Troponin I 0.787 11/16/17 11/16/17 11/16/17 09:29 15:30 15:30 Creatine Kinase 85 CK-MB (CK-2) 3.98 3.03 Troponin I 0.336 0.231 11/16/17 11/16/17 22:00 22:00 Creatine Kinase 70 CK-MB (CK-2) 2.67 Troponin I 0.184 Impressions: Chest X-Ray 11/21/17 06:00 IMPRESSION: 1. Interval removal of endotracheal tube and NG tube. Otherwise stable appearance of the chest. Qualifiers - * PATEINT BEING DISCHARGED WITH ANY OF THE FOLLOWING DIAGNOSIS?: MA MA Pt being discharged on Aspirin therapy?: Yes MA Pt being discharged on Statins?: Yes MA Pt discharged ACEI/ARBS?: No Reason(s) for not prescribing ACEI/ARBS:: Adverse reaction to drug - angioedema HF Pt being discharged on ACEI for LVEF less than 40%?: No Reason(s) for not prescribing ACEI:: Adverse reaction to drug - angioedema HF Pt being discharged on ARBS for LVEF less than 40%?: No Reason(s) for not prescribing ARBS:: Adverse reaction to drug - angioedema HF Pt discharged on evidence-based Beta Sapna:: Yes Plan Time Spent: Greater than 30 Minutes - 36 minutes
== END 2017-11-23 14:48 | disposition home or self-care (01) | DRG 207 ==
LOC: ER 09:27 → EH 11:00 → ICU 17:02 → 4N 11-22 02:17
PROVIDERS: ADMIT Internal Medicine; ATTEND Internal Medicine
PROC: 5A1955Z Respiratory Ventilation, Greater than 96 Consecutive Hours (ICD-10-PCS; principal; 2017-11-14)
PROC: 0BH17EZ Insertion of Endotracheal Airway into Trachea, Via Natural or Artificial Opening (ICD-10-PCS; 2017-11-14)
DX: J96.00 Acute respiratory failure, unspecified whether with hypoxia or hypercapnia (principal); I21.A1 Myocardial infarction type 2; E87.0 Hyperosmolality and hypernatremia; T78.3XXA Angioneurotic edema, initial encounter; K44.9 Diaphragmatic hernia without obstruction or gangrene; T46.4X5A Adverse effect of angiotensin-converting-enzyme inhibitors, initial encounter; Y92.9 Unspecified place or not applicable; D64.9 Anemia, unspecified; I10 Essential (primary) hypertension; M19.90 Unspecified osteoarthritis, unspecified site; R74.8 Abnormal levels of other serum enzymes; E87.6 Hypokalemia; R94.31 Abnormal electrocardiogram [ECG] [EKG]; I25.10 Atherosclerotic heart disease of native coronary artery without angina pectoris; Z90.710 Acquired absence of both cervix and uterus; Z88.6 Allergy status to analgesic agent; Z88.8 Allergy status to other drugs, medicaments and biological substances; Z78.1 Physical restraint status
CPT/HCPCS: 36415; 36430; 36600; 51702; 71045; 78452; 80048; 80053; 80061; 82550; 82553; 82803; 82962; 83735; 84100; 84132; 84484; 85025; 85027; 86900; 86901; 87070; 87077; 87086; 87186; 87205; 93005; 93010; 93017; 93306; 94002; 94003; 94640; 94799; 99291; A9500; G8978-GP; G8979-GP; J0280; J0330; J0360; J0743; J1100; J1200; J1650; J2250; J2704; J2785; J2920; J2930; J3480; J3490; J7030; J7512; J7620; J7685; P9017; Q9969; S0028

== ENCOUNTER 2019-10-26 12:46 | Emergency (ER) | payer MEDICARE, OTHER ==
--- NOTE | 2019-10-26 13:56 | ER Document Report ---
ED Medical Screen (RME) - General Chief Complaint: Fall Stated Complaint: FALL Time Seen by Provider: 10/26/19 13:43 Mode of Arrival: Wheelchair Information source: Patient Notes: 69-year-old female patient presenting to the emergency department chief complaint of head neck and facial injury. Patient reports on Sunday they were at a concert cooper when she fell walking up some steps. She states that since then she has had confusion, headache and increased swelling. She denies any loss of consciousness, denies any vomiting. Patient has swelling to the top of her head, forehead and left eye. No focal neurological deficits noted I have greeted and performed a rapid initial assessment of this patient. A comprehensive ED assessment and evaluation of the patient, analysis of test resu lts and completion of the medical decision making process will be conducted by additional ED providers. I have specifically instructed the patient or family members with the patient to immediately return to any nursing staff should anything change in the patient's condition or with their chief complaint. TRAVEL OUTSIDE OF THE [place] IN LAST 30 DAYS: No - Related Data Allergies/Adverse Reactions: lisinopril Allergy (Severe, Verified 11/14/17 10:44) Angioneurotic Edema amlodipine Allergy (Verified 11/14/17 10:44) Past Medical History - Past Medical History Cardiac Medical History: Reports: Hx Hypertension Denies: Hx Coronary Artery Disease, Hx Heart Attack Pulmonary Medical History: Denies: Hx Asthma, Hx Bronchitis, Hx COPD, Hx Pneumonia Neurological Medical History: Denies: Hx Cerebrovascular Accident, Hx Seizures Renal/ Medical History: Denies: Hx Peritoneal Dialysis GI Medical History: Reports: Hx Hiatal Hernia. Denies: Hx Hepatitis, Hx Ulcer Musculoskeltal Medical History: Reports Hx Arthritis Infectious Medical History: Denies: Hx Hepatitis Past Surgical History: Reports: Hx Hysterectomy. Denies: Hx Mastectomy, Hx Open Heart Surgery Physical Exam - Vital signs Vitals: Temp Pulse Resp BP Pulse Ox 98.1 F 86 16 131/88 H 97 10/26/19 13:22 10/26/19 13:22 10/26/19 13:10/26/19 13:10/26/19 13:22 Course - Vital Signs Vital signs: Temp Pulse Resp BP Pulse Ox 98.1 F 86 16 131/88 H 97 10/26/19 13:22 10/26/19 13:22 10/26/19 13:22 10/26/19 13:22 10/26/19 13:22
--- NOTE | 2019-10-26 15:14 | ER Document Report ---
ED Fall - General Chief Complaint: Fall Stated Complaint: FALL Time Seen by Provider: 10/26/19 13:43 Primary Care Provider: MESHA FRIEDMAN MD [Primary Care Provider] - Follow up in 3-5 days Mode of Arrival: Wheelchair Information source: Patient Notes: Patient is a 69-year-old female who presents to the emergency department with a chief complaint of a headache after a fall. 3 days ago she was at a concert and ended up falling and hitting her face in the back of her head. She denies any numbness, tingling, and or any other symptoms. TRAVEL OUTSIDE OF THE [place] IN LAST 30 DAYS: No - Related data Allergies/Adverse Reactions: lisinopril Allergy (Severe, Verified 11/14/17 10:44) Angioneurotic Edema amlodipine Allergy (Verified 11/14/17 10:44) Past Medical History - General Information source: Patient - Social History Smoking Status: Never Smoker Family History: Hypertension Patient has suicidal ideation: No Patient has homicidal ideation: No - Past Medical History Cardiac Medical History: Reports: Hx Hypertension Denies: Hx Coronary Artery Disease, Hx Heart Attack Pulmonary Medical History: Denies: Hx Asthma, Hx Bronchitis, Hx COPD, Hx Pneumonia Neurological Medical History: Denies: Hx Cerebrovascular Accident, Hx Seizures Renal/ Medical History: Denies: Hx Peritoneal Dialysis GI Medical History: Reports: Hx Hiatal Hernia. Denies: Hx Hepatitis, Hx Ulcer Musculoskeletal Medical History: Reports Hx Arthritis Infectious Medical History: Denies: Hx Hepatitis Past Surgical History: Reports: Hx Hysterectomy. Denies: Hx Mastectomy, Hx Open Heart Surgery Review of Systems - Review of Systems Notes: REVIEW OF SYSTEMS: CONSTITUTIONAL : Denies recent illness. Denies recent unintentional weight loss. Denies fever, chills, or sweats. EENT: Denies eye, ear, throat, or mouth pain, discharge, or symptoms. Denies nasal or sinus congestion. CARDIOVASCULAR: Denies chest pain. RESPIRATORY: Denies shortness of breath, cough, congestion, difficulty breathing, or wheezing. GASTROINTESTINAL: Denies nausea, vomiting, and diarrhea. Denies abdominal pain. Denies constipation. GENITOURINARY: Denies difficulty urinating, burning, blood in urine, urgency or frequency. MUSCULOSKELETAL: See HPI. SKIN: Denies rash, itchiness, or lesions HEMATOLOGIC : Denies easy bruising or bleeding. LYMPHATIC: Denies swollen, painful, enlarged glands. NEUROLOGICAL: See HPI. PSYCHIATRIC: Denies stress, anxiety, alteration in sleep patterns, or depression. All other systems reviewed and negative. Physical Exam - Vital signs Vitals: Temp Pulse Resp BP Pulse Ox 98.1 F 86 16 131/88 H 97 10/26/19 13:22 10/26/19 13:22 10/26/19 13:22 10/26/19 13:10/26/19 13:22 - Notes Notes: PHYSICAL EXAMINATION: GENERAL: Appears well, healthy, well-nourished, no acute distress. HEAD: Tenderness noted to the crown of the head. Mild edema noted to left facial area. EYES: PERRL, conjunctiva normal, all extraocular movements intact, sclera nonicteric ENT: Moist mucous membranes. NECK: Supple, no noticeable swelling, redness, rash. Normal range of motion. LUNGS: Equal breath sounds bilaterally and clear to auscultation. No wheezes rales or rhonchi. CARDIOVASCULAR: S1-S2, regular rate, regular rhythm. Radial pulses 2+, normal. ABDOMEN: Normoactive bowel sounds. Soft, nontender, no guarding, no rebound tenderness, and no masses palpated. EXTREMITIES: Normal strength and range of motion, no pitting or edema. No cyanosis. NEUROLOGICAL: Moves all extremities upon command. Strength 5/5 in all extremities. PSYCH: Normal mood, normal affect. SKIN: Warm, dry. No rash, lesions, ulcerations noted. Normal skin turgor. Course - Re-evaluation Re-evalutation: 10/26/19 16:26 As per the radiologist read, the patient does not have any intracranial bleeding noted. There is a scalp hematoma noted. I discussed this with the patient and advised her to continue to apply ice to the area. I also advised her to take Tylenol 1000 mg every [address] and C-spine is negative for any acute fractures, per radiologist read. No neurological deficits noted. - Vital Signs Vital signs: Temp Pulse Resp BP Pulse Ox 98.1 F 86 16 131/88 H 97 10/26/19 13:22 10/26/19 13:22 10/26/19 13:22 10/26/19 13:22 10/26/19 13:22 Discharge - Discharge Clinical Impression: Scalp hematoma Qualifiers: Encounter type: initial encounter Qualified Code(s): S00.03XA - Contusion of scalp, initial encounter Fall Qualifiers: Encounter type: initial encounter Qualified Code(s): W19.XXXA - Unspecified fall, initial encounter Condition: Stable Disposition: HOME, SELF-CARE Additional Instructions: You were seen today in the emergency department after a fall. You have a rossy boni on your scalp, which is a collection of blood on your scalp. Please ice the area to help the hematoma go away. The hematoma will go away on its own. Take Tylenol 975 mg every 6 hours for your pain. You are also being prescribed Reglan, which is nausea/headache medication. Please follow-up with your primary care provider regards to this visit. Recommend physical therapy for your shoulder. Prescriptions: Metoclopramide HCl [Reglan 10 mg Tablet] 1 - 2 tab PO ASDIR PRN #25 tablet PRN Reason: Referrals: MESHA FRIEDMAN MD [Primary Care Provider] - Follow up in 3-5 days
--- NOTE | 2019-10-26 15:18 | RADIOLOGY REPORT (SQ) ---
EXAM DESCRIPTION: CT HEAD WITHOUT COMPLETED DATE/TIME: 10/26/2019 2:02 pm REASON FOR STUDY: fall injury COMPARISON: None. TECHNIQUE: Axial images acquired through the brain without intravenous contrast. Images reviewed wi th bone, brain and subdural windows. Images stored on PACS. All CT scanners at this facility use dose modulation, iterative reconstruction, and/or weight based d osing when appropriate to reduce radiation dose to as low as reasonably achievable (ALARA). [facility]: Dose Right [facility]: CareDose [facility]: Dose Right [facility]: Teradose 4D [facility]: SOL [employer] RADIATION DOSE: CT Rad equipment meets quality standard of care and radiation dose reduction techniq ues were employed. CTDIvol: 53.2 mGy. DLP: 911 mGy-cm. mGy. LIMITATIONS: None. FINDINGS: VENTRICLES: Normal size and contour. CEREBRUM: No masses. No hemorrhage. No midline shift. No evidence for acute infarction. Normal gra y/white matter differentiation. No areas of low density in the white matter. CEREBELLUM: No masses. No hemorrhage. No alteration of density. No evidence for acute infarction. EXTRAAXIAL SPACES: No fluid collections. No masses. ORBITS AND GLOBE: No intra- or extraconal masses. Normal contour of globe without masses. CALVARIUM: Hyperostosis frontalis interna is noted. PARANASAL SINUSES: No fluid or mucosal thickening. SOFT TISSUES: Very large left posterior and hyoid scalp hematoma measuring at least 6.5 x 3.2 cm. OTHER: No other significant finding. IMPRESSION: Left scalp hematoma. No underlying fracture. No acute intracranial hemorrhage, mass, o r evidence of acute territorial infarct. EVIDENCE OF ACUTE STROKE: NO. COMMENT: Quality ID # 436: Final reports with documentation of one or more dose reduction techniques (e.g., Automated exposure control, adjustment of the mA and/or kV according to patient size, use of iterative reconstruction technique) TECHNICAL DOCUMENTATION: JOB ID: [id number] 2010 [employer]- All Rights Reserved Reading location - IP/workstation name: [email or web address]
--- NOTE | 2019-10-26 15:35 | RADIOLOGY REPORT (SQ) ---
EXAM DESCRIPTION: CT CERVICAL SPINE WITHOUT COMPLETED DATE/TIME: 10/26/2019 2:02 pm REASON FOR STUDY: fall injury COMPARISON: None. TECHNIQUE: Axial images acquired through the cervical spine without intravenous contrast. Images re viewed with lung, soft tissue and bone windows. Reconstructed coronal and sagittal MPR images review ed. Images stored on PACS. All CT scanners at this facility use dose modulation, iterative reconstruction, and/or weight based d osing when appropriate to reduce radiation dose to as low as reasonably achievable (ALARA). [facility]: Dose Right [facility]: CareDose [facility]: Dose Right [facility]: Teradose 4D [facility]: [employer] RADIATION DOSE: CT Rad equipment meets quality standard of care and radiation dose reduction techniq ues were employed. CTDIvol: 16.3 mGy. DLP: 279 mGy-cm. mGy. LIMITATIONS: None. FINDINGS: ALIGNMENT: Anatomic. MINERALIZATION: Normal. VERTEBRAL BODIES: No fractures or dislocation. DISCS: No significant disc disease. FACETS, LATERAL MASSES, POSTERIOR ELEMENTS: No fractures. No dislocation. No acute findings. HARDWARE: None in the spine. VISUALIZED RIBS: No fractures. LUNG APICES AND SOFT TISSUES: No significant or acute findings. OTHER: No other significant finding. IMPRESSION: NO ACUTE OR SIGNIFICANT FINDINGS IN THE CERVICAL SPINE. TECHNICAL DOCUMENTATION: JOB ID: [id number] Quality ID # [id number]: Final reports with documentation of one or more dose reduction techniques (e.g., Au tomated exposure control, adjustment of the mA and/or kV according to patient size, use of iterative reconstruction technique) 2010 [employer]- All Rights Reserved Reading location - IP/workstation name: [email or web address]
--- NOTE | 2019-10-26 15:36 | RADIOLOGY REPORT (SQ) ---
EXAM DESCRIPTION: CT FACIAL AREA WITHOUT COMPLETED DATE/TIME: 10/26/2019 2:02 pm REASON FOR STUDY: fall injury COMPARISON: None. TECHNIQUE: Noncontrasted images through the facial bones and orbits windowed for bone and soft tissu e. Additional coronal and sagittal reconstructed images reviewed. All images stored on PACS. All CT scanners at this facility use dose modulation, iterative reconstruction, and/or weight based d osing when appropriate to reduce radiation dose to as low as reasonably achievable (ALARA). [facility]: Dose Right [facility]: CareDose [facility]: Dose Right [facility]: Teradose 4D [facility]: [employer] RADIATION DOSE: CT Rad equipment meets quality standard of care and radiation dose reduction techniq ues were employed. CTDIvol: 30.4 mGy. DLP: 534 mGy-cm. mGy. LIMITATIONS: None. FINDINGS: FACIAL BONES: No fracture or bone lesion. ORBITS: Intact. No fracture. Symmetric intact globes and retroorbital soft tissues. PARANASAL SINUSES: Clear. No significant mucosal thickening, mass or fluid. No nasal polyps. Maxill uziel sinus outlets are patent. SOFT TISSUES: No mass or edema. INFERIOR BRAIN: Limited view. No acute findings. OTHER: No other significant finding. IMPRESSION: NO ACUTE FINDINGS. TECHNICAL DOCUMENTATION: JOB ID: [id number] Quality ID # [id number]: Final reports with documentation of one or more dose reduction techniques (e.g., Au tomated exposure control, adjustment of the mA and/or kV according to patient size, use of iterative reconstruction technique) 2010 [employer]- All Rights Reserved Reading location - IP/workstation name: [email or web address]
[2019-10-26] MEDS ORDERED: ACETAMINOPHEN 325 MG TABLET PO ONE (16:06)
[2019-10-26] MEDS ORDERED: METOCLOPRAMIDE HCL 10 MG TABLET PO ONE (16:06)
[2019-10-26 16:29] VITALS: BP 143/91
== END 2019-10-26 16:34 | disposition home or self-care (01) ==
LOC: ER 12:46
DX: S00.03XA Contusion of scalp, initial encounter (principal); R51 Headache; W19.XXXA Unspecified fall, initial encounter; R60.0 Localized edema; I10 Essential (primary) hypertension; Z88.8 Allergy status to other drugs, medicaments and biological substances
CPT/HCPCS: 99284; 70450; 70486; 72125; A9270 ×2